=== PATIENT | female | born 1940 | race Caucasian/White ===

== ENCOUNTER 2016-11-04 17:15 | Inpatient (IN) | payer MEDICARE, MEDICAID ==
[~2016-11-04] VITALS: Ht 162.6 cm; Wt 49.6 kg
[~2016-11-04 17:15] MED LIST: ACET325T9 PO; ASPI-482 PO; Bisacodyl PR; CALC200T23 PO; CELE100C PO; ERGO500012 PO; FERR325T72 PO; HYDR-2762 PO; MAGN400O4 PO; MULT1TAB90 PO; OXYC-244 PO; PANT40TA5 PO; PROC5TAB34 PO; SENN-22 PO; ZOLP5TAB PO
[2016-11-04] MEDS ORDERED: HYDROCODONE/APAP 5/325MG TABLET. PO ONE (18:45)
--- NOTE | 2016-11-04 18:47 | RAD ---
PROCEDURE CT chest without contrast. HISTORY Weight loss. Thoracic back pain. TECHNIQUE CT of the chest was performed without intravenous contrast. One or more of the following individualized dose reduction techniques were utilized for this examination: 1. Automated exposure control; 2. Adjustment of the mA and/or kV according to patient size; 3. Use of iterative reconstruction technique. FINDINGS Images of the upper abdomen reveal no acute abnormality. Bone windows reveal osteoporosis and multiple thoracolumbar compression fractures. The will worst is severe at L1, where there is 3 millimeters retropulsion of the superior endplate. This is chronic but may have a superimposed subacute component. There is a chronic moderate compression deformity at T12. These deformities result in mild kyphosis across the thoracolumbar junction. There is a moderate chronic deformity at T9. Another moderate deformity at T6 may be subacute on chronic. Other deformities appear chronic and are minimal. Slight sclerosis at T3 suggests subacute minimal deformity. A right total shoulder arthroplasty is partially visualized. There are atherosclerotic calcifications of the coronary arteries. The heart is not enlarged. There is no pleural or pericardial effusion. Calcified mediastinal lymph nodes indicate old granulomatous disease. There are no clearly pathologically enlarged mediastinal or axillary lymph nodes. Lung windows reveal a chronic postinflammatory opacity with calcified granulomas in the right lower lobe. There is mild atelectasis in the bases. IMPRESSION - Multiple thoracolumbar compression deformities are mostly chronic. A few may have a subacute component. MRI of the thoracic spine could assess chronicity if there is persistent concern. - No acute process. Electronically signed by: Olu Tolliver (Nov 04, 2016 18:46:18)
--- NOTE | 2016-11-04 18:48 | PHYS DOC ---
Past Medical History Past Medical History: Dementia, Other Additional Past Medical Histor: BACK PAIN Past Surgical History: Hysterectomy Alcohol Use: None Drug Use: None Adult General Chief Complaint Chief Complaint: BACK PAIN - NO INJURY HPI HPI Patient is a 76 year old female who presents with upper back pain. Patient reports she has aching across her upper back between her shoulder blades. She says this is been painful the past 2 or 3 weeks, but is worse the past 3 days. She denies any trauma or other clear inciting event. No chest pain or shortness of breath. Patient has tried Tylenol and ibuprofen at home with insufficient relief. In addition, she says she has lost about 20 pounds over the past 6 months. No other acute complaints. Review of Systems Review of Systems Constitutional: Denies fever or chills Eyes: Denies change in visual acuity or eye pain HENT: Denies nasal congestion or sore throat Respiratory: Denies cough or shortness of breath Cardiovascular: Denies chest pain GI: Denies abdominal pain, nausea, vomiting, bloody stools or diarrhea : Denies dysuria or hematuria Musculoskeletal: Thoracic back pain Integument: Denies rash or skin lesions Neurologic: Denies headache, focal weakness or sensory changes Current Medications Current Medications Current Medications Medications (Trade) Dose Ordered Sig/Vonda Start Time Stop Time Status Last Admin Dose Admin Acetaminophen (Tylenol) 650 mg PRN Q4HRS PRN 11/04/16 19:45 11/05/16 19:44 Acetaminophen/ Hydrocodone Bitart (Lortab 5/325) 1 tab 1X ONCE 11/04/16 18:45 11/04/16 18:46 DC 11/04/16 18:40 1 TAB Morphine Sulfate 4 mg PRN Q2HR PRN 11/04/16 20:30 11/05/16 20:29 Ondansetron HCl (Zofran) 4 mg PRN Q8HRS PRN 11/04/16 19:45 11/05/16 19:44 Allergies Allergies Allergies Coded Allergies Type Severity Reaction Last Updated Verified No Known Drug Allergies 02/21/16 No Physical Exam Physical Exam Constitutional: Well developed, no acute distress, non-toxic appearance HENT: Normocephalic, atraumatic, bilateral external ears normal Eyes: EOMI, conjunctiva normal, no discharge Neck: Normal range of motion, no stridor Cardiovascular: Heart rate normal, regular rhythm, no murmur Lungs & Thorax: Bilateral breath sounds clear to auscultation Abdomen: Bowel sounds normal, soft, non-distended, no TTP Skin: Warm, dry, no erythema, no rash Back: Back without visible deformity or skin lesion, does have kyphosis; palpation (midline and laterally) does not cause increased pain; no stepoff noted Extremities: No obvious deformity, no edema; radial pulse 2+ in BUE Neurologic: Alert and oriented X 2; strength and sensation in BUE intact and symmetrical Current Patient Data Vital Signs Vital Signs Date Time Temp Pulse Resp B/P Pulse Ox O2 Delivery O2 Flow Rate FiO2 11/04/16 17:30 97.8 75 21 174/77 97 Room Air 97.8 203/91 EKG EKG [] Radiology/Procedures Radiology/Procedures CT chest: IMPRESSION - Multiple thoracolumbar compression deformities are mostly chronic. A few may have a subacute component. MRI of the thoracic spine could assess chronicity if there is persistent concern. - No acute process. Course & Med Decision Making Course & Med Decision Making Pertinent Labs and Imaging studies reviewed. (See chart for details) Patient is 76-year-old female who presents with upper back pain. Will obtain CT chest to evaluate given pain and complaint of weight loss over past 6 months. Oral pain medication for pain relief. Imaging results as above. I discussed with Kari (ENVIRONMENTAL PROGRAM MANAGER with Dr. Hernandez); if able to control pain, then would be able to send home with outpatient follow-up. I discussed with patient and family, patient still having significant pain and family would prefer she is admitted to the hospital for pain control and further evaluation. Discussed with Dr. Polanco, will admit under his care for further evaluation and treatment. Dragon Disclaimer Dragon Disclaimer This electronic medical record was generated, in whole or in part, using a voice recognition dictation system. Departure Departure Impression: Primary Impression: Compression fracture of thoracic vertebra Additional Impression: Compression fracture of lumbar vertebra Disposition: 09 ADMITTED INPATIENT Admitting Physician: Porsche Polanco Condition: STABLE Referrals: TRISTIN FERNANDEZ DO (PCP) Problem Qualifiers SHENA CUBA MD Nov 04, 2016 18:47
[2016-11-04] MEDS ORDERED: ONDANSETRON PF 4 MG/2 ML VIAL. IV PRN (19:45)
[2016-11-04] MEDS ORDERED: ACETAMINOPHEN 325 MG TABLET. PO PRN (19:45)
[2016-11-04 19:59] LABS: BASO # 0.1 x10^3/uL (0.0-0.2); BASO % 1 % (0-3); EOS % 0 % (0-3); HEMATOCRIT 37.8 % (36.0-47.0); HEMOGLOBIN 12.4 g/dL (12.0-15.5); LYMPH # 1.5 x10^3/uL (1.0-4.8); LYMPH % 21 % (24-48); MEAN CORPUSCULAR HEMOGLOBIN 30 pg (25-35); MEAN CORPUSCULAR HGB CONC 33 g/dL (31-37); MEAN CORPUSCULAR VOLUME 93 fL (79-100); MONO % 7 % (0-9); NEUT % 72 % (31-73); PLATELET COUNT 196 x10^3/uL (140-400); RED BLOOD COUNT 4.08 x10^6/uL (3.50-5.40); RED CELL DISTRIBUTION WIDTH 14.4 % (11.5-14.5); WHITE BLOOD COUNT 7.4 x10^3/uL (4.0-11.0)
[2016-11-04] MEDS ORDERED: MORPHINE SULFATE 4 MG/ML DISP.SYRIN. IV ONE (20:00)
[2016-11-04 20:08] LABS: PROTHROMBIN TIME PATIENT 12.5 SEC (11.7-14.0)
[2016-11-04 20:10] LABS: CALCIUM 9.6 mg/dL (8.5-10.1); CREATININE 0.8 mg/dL (0.6-1.0); GFR 69.4; POTASSIUM 4.1 mmol/L (3.5-5.1)
[2016-11-04 20:45] VITALS: BP 158/89
--- NOTE | 2016-11-04 20:46 | ACF ---
Admit Criteria Forms Admit Criteria Forms Admit Criteria Forms MUSCULOSKELETAL DISEASE GRG Clinical Indications for Admission to Inpatient Care (Place 'X' for any and all applicable criteria): Hospital admission is needed for appropriate care of the patient because of ANY ONE of the following: [X]I. Fracture, dislocation, or other musculoskeletal injury requiring inpatient care(medical) as indicated by ANY ONE of the following(4)(5)(6)(7) [ ]a) Vertebral fracture requiring observation for instability or neurologic compromise (8) [ ]b) Compartment syndrome (proven or cannot be ruled out during observation level of care) (9) [ ]c) Limb-threatening injury [ ]d) Major injury requiring inpatient stabilization such as traction initiation or external fixation before internal fixation or closure of complex or open fracture [X]e) Major injury requiring inpatient treatment after emergency or observation level care (as appropriate) [ ]f) Severe pain requiring acute inpatient management [ ]II. Newly diagnosed or suspected bone, joint, or orthopedic device infection (e.g., osteomyelitis, septic arthritis) needing ANY ONE of the following(1)(2)(3) [ ]a) IV antibiotics that cannot be initiated in other than inpatient setting (e.g., patient too unstable or home infusion not available) [ ]b) Device removal or replacement [ ]c) Bone or soft tissue debridement [ ]d) Joint drainage (drain placement or repetitive aspirations) [ ]III. Severe rheumatologic disease (e.g., systemic lupus erythematosus, rheumatoid arthritis) with complications or comorbidities (Also use Optimal Recovery Care Criteria or General Recovery Criteria as appropriate on the basis of predominant condition), including ANY ONE of the following(10 )(11)(12)(13) [ ]a) Severe infection (e.g., SOLUTIONS OPERATOR infection, sepsis) (14) [ ]b) Respiratory complications, including ANY ONE of the following: [ ]i) Pleural effusion with respiratory compromise [ ]ii) Pulmonary hypertension with congestive failure [ ]iii) Respiratory failure [ ]iv) Pulmonary hemorrhage (15) [ ]c) Hematologic disease, including ANY ONE of the following: [ ]i) Coagulopathy with bleeding [ ]ii) Thrombosis with hypercoagulable state [ ]iii) Thrombotic thrombocytopenic purpura [ ]d) Cerebritis with seizures, psychosis, or other severe abnormalities [ ]e) Vertebral destruction with monitoring needed for cervical myelopathy& possible respiratory compromise [ ]f) Exacerbation that requires inpatient treatment (e.g., intravenous immunosuppression) (16) [ ]g) Acute renal failure [ ]IV. Severe vasculitis with complications or comorbidities (Also use Optimal Recovery Care Criteria or General Recovery Criteria as appropriate on the basis of predominant condition), including ANY ONE of the following(11)(12)(17)(18)(19)(20) [ ]a) SOLUTIONS OPERATOR vasculitis with seizures, psychosis, or other severe abnormalities (22) [ ]b) Renal failure (16) [ ]c) Pulmonary hemorrhage (15) [ ]d) Cerebral infarction [ ]e) Gastrointestinal ischemia [ ]f) Gangrene or threatened amputation [ ]g) Exacerbation that requires inpatient treatment (e.g., intravenous immunosuppression) (19)(21) [ ]V. Severe myopathy as indicated by ANY ONE of the following (28)(29) [ ]a) New onset of airway compromise or inability to swallow [ ]b) Respiratory deterioration with observation needed for impending respiratory failure [ ]c) Exacerbation that requires inpatient treatment (e.g., intravenous immunosuppression) [ ]. Severe gout (crystal arthropathy) as indicated by ANY ONE of the following (23)(24) [ ]a) Severe pain requiring acute inpatient management [ ]b) Exacerbation that requires inpatient treatment (e.g., intravenous treatment) [ ]VII.Rhabdomyolysis and ANY ONE of the following (25)(26)(27) [ ]a) Acute renal failure [ ]b) Need for intravenous hydration after emergency or observation level care (as appropriate) [ ]c) Inability to maintain oral hydration [ ]d) Change in mental status [ ]e) Electrolyte abnormality that remains after emergency or observation level care (as appropriate) [ ]VIII Post amputation complication, as indicated by ANY ONE of the following [ ]a) Infection [ ]b) Dehiscence [ ]c) Myodesis failure [ ]IX. Severe pain requiring acute inpatient management as indicated by ALL of the following (30)(31)(32) [ ]a) Continuous or frequent (e.g., every 2 to 4 hrs) parenteral analgesics required [A] [ ]b) Rapid improvement expected from treatment or acute intervention ( e.g., surgery, anesthesia procedure[B] [ ]X. Musculoskeletal Disease and ALL of the following: [ ]a) Symptom or finding for which emergency and observation care have failed or are not considered appropriate (Use General Criteria: Observation Care as appropriate) [ ]b) Presence of ANY ONE of the following [ ]i) A General Admission Criteria [ ]ii) A Pediatric General Admission Criteria The original [facility] content created by [facility] has been revised. The portions of the content which have been revised are identified through the use of italic text or in bold, and [facility] has neither reviewed nor approved the modified material. All other unmodified content is copyright [facility]. Please see references footnoted in the original [facility] edition 2016 CORA ROBLES Nov 04, 2016 20:46
[2016-11-04] MEDS: MORPHINE SULFATE 4 MG/ML DISP.SYRIN. IV PRN (22:09)
[2016-11-04] MEDS ORDERED: ASPI81TA2 PO (22:15)
--- NOTE | 2016-11-04 22:28 | PDOC1 ---
History and Physical Date of Admission Date of Admission DATE: 11/04/16 TIME: 22:28 Identification/Chief Complaint Chief Complaint back pain Source Source: Chart review, Patient History of Present Illness History of Present Illness Ms. Riggs is a 76 year old female admitted with acute upper back pain. Pain has worsened markedly 3 days ago, but has been ogoing on for weeks She has been less mobile, and has not used the stairs for awhile. Her Granddaughter lives with her, and insists that she is too large of a risk of falling down the stairs Heike reports that she hasn't driven in some time, that her doctor has stopped her from driving, I asked why Dr. Hector did this, she replied "it wasn't Dr. Hector, it was some male , I think" She has pain at rest, does not remember taking percocet, which is on her med list she does eliciti 20 lbs unintentional weight loss past 6 mos. Past Medical History Cardiovascular: HTN, Hyperlipidemia Pulmonary: No pertinent hx CENTRAL NERVOUS SYSTEM: Other GI: No pertinent hx Heme/Onc: No pertinent hx Hepatobiliary: No pertinent hx Psych: No pertinent hx Musculoskeletal: low back pain Rheumatologic: No pertinent hx Infectious disease: No pertinent hx Renal/: No pertinent hx Endocrine: No pertinent hx Past Surgical History Past Surgical History: Hysterectomy Family History Family History: No Significant Social History Smoke: No ALCOHOL: none Drugs: None Current Problem List Problem List Problems Medical Problems: (1) Compression fracture of lumbar vertebra Status: Acute (2) Compression fracture of thoracic vertebra Status: Acute Problems: Current Medications Current Medications Current Medications Acetaminophen/ Hydrocodone Bitart (Lortab 5/325) 1 tab 1X ONCE PO Last administered on 11/04/16 18:40; Start 11/04/16 at 18:45; Stop 11/04/16 at 18:46 ; Status DC Morphine Sulfate 4 mg 1X ONCE IV Last administered on 11/04/16 19:57; Start 11/04/16 at 20:00; Stop 11/04/16 at 20:01; Status DC Ondansetron HCl (Zofran) 4 mg PRN Q8HRS PRN IV NAUSEA/VOMITING; Start 11/04/16 at 19:45; Stop 11/05/16 at 19:44 Morphine Sulfate 4 mg PRN Q2HR PRN IV PAIN Last administered on 11/04/16t 22:09 ; Start 11/04/16 at 20:30; Stop 11/05/16 at 20:29 Acetaminophen 650 mg 650 mg PRN Q4HRS PRN PO FEVER; Start 11/04/16 at 19:45; Stop 11/05/16 at 19:44 Sodium Chloride (Iv Sodium Chloride 0.9% 1000ml Bag) 1,000 ml @ 100 mls/hr 1X ONCE IV ; Start 11/04/16 at 23:30; Stop 11/05/16 at 09:29 Aspirin (Children'S Aspirin) 81 mg DAILY PRN PO PAIN; Start 11/04/16 at 22:30 Calcium Carbonate/ Glycine (Tums) 500 mg PRN QID PRN PO INDIGESTION; Start 08/11 at 22:30 Ferrous Sulfate (Feosol) 325 mg BIDAFTMEAL PO ; Start 11/05/16 at 09:00 Acetaminophen/ Hydrocodone Bitart (Lortab 7.5/325) 1 tab PRN Q3HRS PRN PO PAIN ; Start 11/04/16 at 22:30 Magnesium Hydroxide (Milk Of Magnesia) 2,400 mg 1X PRN PRN PO CONSTIPATION; Start 11/04/16 at 22:30 Pantoprazole Sodium (Protonix) 40 mg DAILYAC PO ; Start 11/05/16 at 07:30; Status UNV Prochlorperazine Maleate (Compazine) 10 mg PRN Q4HRS PRN PO NAUSEA/VOMITING; Start 11/04/16 at 22:30; Status UNV Senna/Docusate Sodium (Senna Plus) 1 tab DAILY PO ; Start 11/05/16 at 09:00; Status UNV Zolpidem Tartrate (Ambien) 5 mg PRN QHS PRN PO INSOMNIA, MAY REPEAT IN 1HR; Start 11/04/16 at 22:30; Status UNV Active Scripts Active Ambien (Zolpidem Tartrate) 5 Mg Tablet 5 Mg PO PRN QHS PRN 14 Days Senna-Time S Tablet (Sennosides/Docusate Sodium) 1 Each Tablet 1 Tab PO DAILY 30 Days Compazine (Prochlorperazine Maleate) 5 Mg Tablet 10 Mg PO PRN Q4HRS PRN 14 Days Pantoprazole Sodium 40 Mg Tablet.dr 40 Mg PO DAILYAC 30 Days Thera-M Tablet (Multivits,Ca,Minerals/Iron/Fa) 1 Each Tablet 1 Tab PO DAILY 30 Days Milk Of Magnesia (Magnesium Hydroxide) 400 Mg/5 Ml Oral.susp 2,400 Mg PO 1X PRN PRN 14 Days Hydrocodone-Apap 7.5-325 (Hydrocodone Bit/Acetaminophen) 1 Each Tablet 1 Tab PO PRN Q3HRS PRN 14 Days Feosol (Ferrous Sulfate) 325 Mg Tablet 325 Mg PO BIDAFTMEAL 30 Days Calcium Carbonate 200 Mg Tab.chew 500 Mg PO PRN QID PRN 30 Days [Bisacodyl] 10 MG Supp.rect 10 Mg WV 1X PRN PRN 30 Days Reported Aspirin 81 Mg Tab.chew 81 Mg PO PRN Tylenol (Acetaminophen) 325 Mg Tablet 650 Mg PO PRN PRN Vitamin D2 (Ergocalciferol (Vitamin D2)) 50,000 Unit Capsule 50,000 Unit PO WEEKLY Percocet 7.5-325 Mg Tablet (Oxycodone/Acetaminophen) 1 Each Tablet 1 Tab PO PRN Q6HRS PRN Celebrex (Celecoxib) 100 Mg Capsule 100 Mg PO BID 30 Days Hydrocodone-Apap 7.5-325 (Hydrocodone Bit/Acetaminophen) 1 Each Tablet 1 Each PO PRN AFTMEAL Aspir 81 (Aspirin) 81 Mg Tablet.dr 81 Mg PO DAILY08 Allergies Allergies: Coded Allergies: No Known Drug Allergies (Unverified , 02/21/16) ROS General: No: Appetite, Chills, Fatigue, Malaise, Night Sweats, Other PSYCHOLOGICAL ROS: No: Anxiety, Behavioral Disorder, Concentration difficultie , Decreased libido, Depression, Disorientation, Hallucinations, Hostility, Irritablity, Memory difficulties, Mood Swings, Obsessive thoughts, Other, Physical abuse, Sexual abuse, Sleep disturbances, Suicidal ideation Eyes: No Blurry vision, No Decreased vision, No Double vision, No Dry eyes, No Excessive tearing, No Eye Pain, No Itchy Eyes, No Loss of vision, No Other, No Photophobia, No Scotomata, No Uses contacts, No Uses glasses HEENT: No: Epistaxis, Heacaches, Hearing change, Nasal congestion, Nasal discharge, Oral lesions, Other, Sinus pain, Sneezing, Snoring, Sore Throat, Tinnitus, Vertigo, Visual Changes, Vocal changes ALLERGY AND IMMUNOLOGY: No: Hives, Insect Bite Sensitivity, Itchy/Watery Eyes, Nasal Congestion, Other, Post Nasal Drip, Seasonal Allergies ENDOCRINE: YES: Unexpected Weight Changes, No: Breast Changes, Galactorrhea, Hair Pattern Changes, Hot Flashes, Malaise/ lethargy, Mood Swings, Other, Palpitations, Polydipsia/polyuria, Skin Changes, Temperature Intolerance Respiratory: No: Cough, Hemoptysis, Orthopnea, Other, Pleuritic Pain, SOB with excertion, Shortness of breath, Sputum Changes, Stridor, Tachypnea, Wheezing Cardiovascular: No Chest Pain, No Edema, No Lt Headedness, No Orthopnea, No Other, No Palpitations, No Paroxysmal Noc. Dyspnea Gastrointestinal: No Abdominal Pain, No Constipation, No Diarrhea, No Hematochezia, No Melena, No Nausea, No Other, No Vomiting Genitourinary: No , No , No , No , No , No , No , No Discharge, No Dysuria, No Flank Pain, No Frequency, No Hematuria, No Incontinence, No Other, No Pain, No Retention, No Urgency Musculoskeletal: Yes Joint Pain, Yes Joint Stiffness, Yes Muscular Weakness, Yes Pain In:, No Gait Disturbance, No Joint Swelling, No Muscle Pain, No Other Neurological: Yes Weakness, No Behavorial Changes, No Bowel/Bladder ControlChng, No Confusion, No Dizziness, No Gait Disturbance, No Headaches, No Impaired Coord/balance, No Memory Loss, No Numbness/Tingling, No Other, No Seizures, No Speech Problems, No Tremors, No Visual Changes Skin: No Acne, No Dry Skin, No Eczema, No Hair Changes, No Lumps, No Mole Changes, No Mottling, No Nail Changes, No Other, No Pruritus, No Rash, No Skin Lesion Changes Physical Exam General: Alert, Cooperative, No acute distress, Other (oriented 3/4) HEENT: Atraumatic, EOMI Lungs: Clear to auscultation, Normal air movement Heart: RRR, no murmurs Abdomen: Normal bowel sounds, Soft Rectal Exam: not examined Extremities: No clubbing, No cyanosis, No edema Skin: No rashes, No breakdown, No significant lesion Neuro: Normal speech, Sensation intact Psych/Mental Status: Mood NL Vitals Vitals Vital Signs Date Time Temp Pulse Resp B/P Pulse Ox O2 Delivery O2 Flow Rate FiO2 11/04/16 22:09 99 11/04/16 20:45 98.3 71 18 158/89 Room Air 98.3 Labs Labs Laboratory Tests Test 11/04/16 19:50 White Blood Count 7.4x10^3/uL (4.0-11.0) Red Blood Count 4.08x10^6/uL (3.50-5.40) Hemoglobin 12.4g/dL (12.0-15.5) Hematocrit 37.8% (36.0-47.0) Mean Corpuscular Volume 93fL (79-100) Mean Corpuscular Hemoglobin 30pg (25-35) Mean Corpuscular Hemoglobin Concent 33g/dL (31-37) Red Cell Distribution Width 14.4% (11.5-14.5) Platelet Count 196x10^3/uL (140-400) Neutrophils (%) (Auto) 72% (31-73) Lymphocytes (%) (Auto) 21% (24-48) Monocytes (%) (Auto) 7% (0-9) Eosinophils (%) (Auto) 0% (0-3) Basophils (%) (Auto) 1% (0-3) Neutrophils # (Auto) 5.3x10^3uL (1.8-7.7) Lymphocytes # (Auto) 1.5x10^3/uL (1.0-4.8) Monocytes # (Auto) 0.5x10^3/uL (0.0-1.1) Eosinophils # (Auto) 0.0x10^3/uL (0.0-0.7) Basophils # (Auto) 0.1x10^3/uL (0.0-0.2) Prothrombin Time 12.5SEC (11.7-14.0) Prothromb Time International Ratio 1.0 (0.8-1.1) Sodium Level 143mmol/L (136-145) Potassium Level 4.1mmol/L (3.5-5.1) Chloride Level 105mmol/L (98-107) Carbon Dioxide Level 29mmol/L (21-32) Anion Gap 9 (6-14) Blood Urea Nitrogen 18mg/dL (7-20) Creatinine 0.8mg/dL (0.6-1.0) Estimated GFR (Cockcroft-Gault) 69.4 Glucose Level 100mg/dL (70-99) Calcium Level 9.6mg/dL (8.5-10.1) Laboratory Tests Test 11/04/16 19:50 White Blood Count 7.4x10^3/uL (4.0-11.0) Red Blood Count 4.08x10^6/uL (3.50-5.40) Hemoglobin 12.4g/dL (12.0-15.5) Hematocrit 37.8% (36.0-47.0) Mean Corpuscular Volume 93fL (79-100) Mean Corpuscular Hemoglobin 30pg (25-35) Mean Corpuscular Hemoglobin Concent 33g/dL (31-37) Red Cell Distribution Width 14.4% (11.5-14.5) Platelet Count 196x10^3/uL (140-400) Neutrophils (%) (Auto) 72% (31-73) Lymphocytes (%) (Auto) 21% (24-48) Monocytes (%) (Auto) 7% (0-9) Eosinophils (%) (Auto) 0% (0-3) Basophils (%) (Auto) 1% (0-3) Neutrophils # (Auto) 5.3x10^3uL (1.8-7.7) Lymphocytes # (Auto) 1.5x10^3/uL (1.0-4.8) Monocytes # (Auto) 0.5x10^3/uL (0.0-1.1) Eosinophils # (Auto) 0.0x10^3/uL (0.0-0.7) Basophils # (Auto) 0.1x10^3/uL (0.0-0.2) Prothrombin Time 12.5SEC (11.7-14.0) Prothromb Time International Ratio 1.0 (0.8-1.1) Sodium Level 143mmol/L (136-145) Potassium Level 4.1mmol/L (3.5-5.1) Chloride Level 105mmol/L (98-107) Carbon Dioxide Level 29mmol/L (21-32) Anion Gap 9 (6-14) Blood Urea Nitrogen 18mg/dL (7-20) Creatinine 0.8mg/dL (0.6-1.0) Estimated GFR (Cockcroft-Gault) 69.4 Glucose Level 100mg/dL (70-99) Calcium Level 9.6mg/dL (8.5-10.1) VTE Prophylaxis Ordered VTE Prophylaxis Devices: Yes VTE Pharmacological Prophylaxi: No Assessment/Plan Assessment/Plan back pain, compression fractures seen on CT, Neurosurg consulted, will plan MRI, maybe brace or Kyphoplasty if early phase. osteoporotic fracture likely Vit D is on her med list, she does not recall taking, will check a level, weight loss, maybe from cognitive decline, check hepatic panel now other labs look good PT and OT to wait for NS clearance, maybe a brace will help KEATON SANCHEZ MD Nov 04, 2016 22:28
[2016-11-04] MEDS ORDERED: ASPIRIN 81 MG TAB.CHEW PO PRN (22:30)
[2016-11-04] MEDS ORDERED: ZOLPIDEM 5 MG TABLET. PO PRN (22:30)
[2016-11-04] MEDS ORDERED: CALCIUM CARBONATE 500 MG TAB.CHEW PO PRN (22:30)
[2016-11-04] MEDS ORDERED: MAGNESIUM HYDROXIDE 2,400 MG/30 ML ORAL.SUSP. PO PRN (22:30)
[2016-11-04] MEDS ORDERED: PROCHLORPERAZINE 5 MG TABLET. PO PRN (22:30)
[2016-11-04 23:06] LABS: ALBUMIN 3.8 g/dL (3.4-5.0); DIRECT BILIRUBIN 0.1 mg/dL (0.0-0.2); TOTAL BILIRUBIN 0.5 mg/dL (0.2-1.0); TOTAL PROTEIN 6.9 g/dL (6.4-8.2)
[2016-11-04 23:15] VITALS: BP 153/75
[2016-11-04] MEDS ORDERED: IV NORMAL SALINE 1000ML BAG 1,000 ML IV ONE (23:30)
[2016-11-04] MEDS ORDERED: PNEUMOCOCCAL VAX SCREEN BY RX. MC ONE (23:30)
[2016-11-05] MEDS: MORPHINE SULFATE 4 MG/ML DISP.SYRIN. IV PRN (02:54)
[2016-11-05 03:39] VITALS: BP 158/69
[2016-11-05 07:36] VITALS: BP 159/71
[2016-11-05] MEDS ORDERED: INFLUENZA VAX SCREEN BY RX. MC ONE (09:00)
[2016-11-05] MEDS ORDERED: FLU VACC QUAD 2016-17 (36MOS+)/PF 0.5 ML SYRINGE. VAX IM ONE (09:00)
[2016-11-05] MEDS ORDERED: PNEUMOC CONJ VACC 23-VALENT 0.5 ML VIAL. VAX IM ONE (09:00)
[2016-11-05] MEDS: FERROUS SULFATE 325 MG TABLET PO SCH ×2 (09:27→18:41)
[2016-11-05] MEDS: SENNOSIDES/DOCUSATE 8.6/50MG TABLET. PO SCH (09:27)
[2016-11-05] MEDS: PANTOPRAZOLE 40 MG TABLET. PO SCH (09:27)
[2016-11-05 11:16] VITALS: BP 136/62
--- NOTE | 2016-11-05 14:16 | PDOC ---
PROGRESS NOTES Chief Complaint Chief Complaint CC:back pain, Back pain compression fractures possible osteoporotic Plan NS confutation PMNR consult. PT/OT pain control no bladder or bowel incontinence History of Present Illness History of Present Illness no acute events. pain better controlled. Vitals Vitals Vital Signs Date Time Temp Pulse Resp B/P Pulse Ox O2 Delivery O2 Flow Rate FiO2 11/05/16 11:16 97.3 72 18 136/62 98 Room Air 97.3 Physical Exam General: Alert, Oriented X3, Cooperative, No acute distress, Other (oriented 3/ 4) Heart: Normal S1, Normal S2 Abdomen: Normal bowel sounds, Soft Extremities: No clubbing, No cyanosis, No edema Skin: No rashes, No breakdown, No significant lesion Labs LABS Laboratory Tests Test 11/04/16 19:50 White Blood Count 7.4x10^3/uL (4.0-11.0) Red Blood Count 4.08x10^6/uL (3.50-5.40) Hemoglobin 12.4g/dL (12.0-15.5) Hematocrit 37.8% (36.0-47.0) Mean Corpuscular Volume 93fL (79-100) Mean Corpuscular Hemoglobin 30pg (25-35) Mean Corpuscular Hemoglobin Concent 33g/dL (31-37) Red Cell Distribution Width 14.4% (11.5-14.5) Platelet Count 196x10^3/uL (140-400) Neutrophils (%) (Auto) 72% (31-73) Lymphocytes (%) (Auto) 21% (24-48) Monocytes (%) (Auto) 7% (0-9) Eosinophils (%) (Auto) 0% (0-3) Basophils (%) (Auto) 1% (0-3) Neutrophils # (Auto) 5.3x10^3uL (1.8-7.7) Lymphocytes # (Auto) 1.5x10^3/uL (1.0-4.8) Monocytes # (Auto) 0.5x10^3/uL (0.0-1.1) Eosinophils # (Auto) 0.0x10^3/uL (0.0-0.7) Basophils # (Auto) 0.1x10^3/uL (0.0-0.2) Prothrombin Time 12.5SEC (11.7-14.0) Prothromb Time International Ratio 1.0 (0.8-1.1) Sodium Level 143mmol/L (136-145) Potassium Level 4.1mmol/L (3.5-5.1) Chloride Level 105mmol/L (98-107) Carbon Dioxide Level 29mmol/L (21-32) Anion Gap 9 (6-14) Blood Urea Nitrogen 18mg/dL (7-20) Creatinine 0.8mg/dL (0.6-1.0) Estimated GFR (Cockcroft-Gault) 69.4 Glucose Level 100mg/dL (70-99) Calcium Level 9.6mg/dL (8.5-10.1) Total Bilirubin 0.5mg/dL (0.2-1.0) Direct Bilirubin 0.1mg/dL (0.0-0.2) Aspartate Amino Transf (AST/SGOT) 33U/L (15-37) Alanine Aminotransferase (ALT/SGPT) 30U/L (14-59) Alkaline Phosphatase 113U/L (46-116) Total Protein 6.9g/dL (6.4-8.2) Albumin 3.8g/dL (3.4-5.0) Assessment and Plan Assessmemt and Plan Problems Medical Problems: (1) Compression fracture of lumbar vertebra Status: Acute (2) Compression fracture of thoracic vertebra Status: Acute Problems: Comment Review of Relevant I have reviewed the following items bubba (where applicable) has been applied. Labs Laboratory Tests Test 11/04/16 19:50 White Blood Count 7.4x10^3/uL (4.0-11.0) Red Blood Count 4.08x10^6/uL (3.50-5.40) Hemoglobin 12.4g/dL (12.0-15.5) Hematocrit 37.8% (36.0-47.0) Mean Corpuscular Volume 93fL (79-100) Mean Corpuscular Hemoglobin 30pg (25-35) Mean Corpuscular Hemoglobin Concent 33g/dL (31-37) Red Cell Distribution Width 14.4% (11.5-14.5) Platelet Count 196x10^3/uL (140-400) Neutrophils (%) (Auto) 72% (31-73) Lymphocytes (%) (Auto) 21% (24-48) Monocytes (%) (Auto) 7% (0-9) Eosinophils (%) (Auto) 0% (0-3) Basophils (%) (Auto) 1% (0-3) Neutrophils # (Auto) 5.3x10^3uL (1.8-7.7) Lymphocytes # (Auto) 1.5x10^3/uL (1.0-4.8) Monocytes # (Auto) 0.5x10^3/uL (0.0-1.1) Eosinophils # (Auto) 0.0x10^3/uL (0.0-0.7) Basophils # (Auto) 0.1x10^3/uL (0.0-0.2) Prothrombin Time 12.5SEC (11.7-14.0) Prothromb Time International Ratio 1.0 (0.8-1.1) Sodium Level 143mmol/L (136-145) Potassium Level 4.1mmol/L (3.5-5.1) Chloride Level 105mmol/L (98-107) Carbon Dioxide Level 29mmol/L (21-32) Anion Gap 9 (6-14) Blood Urea Nitrogen 18mg/dL (7-20) Creatinine 0.8mg/dL (0.6-1.0) Estimated GFR (Cockcroft-Gault) 69.4 Glucose Level 100mg/dL (70-99) Calcium Level 9.6mg/dL (8.5-10.1) Total Bilirubin 0.5mg/dL (0.2-1.0) Direct Bilirubin 0.1mg/dL (0.0-0.2) Aspartate Amino Transf (AST/SGOT) 33U/L (15-37) Alanine Aminotransferase (ALT/SGPT) 30U/L (14-59) Alkaline Phosphatase 113U/L (46-116) Total Protein 6.9g/dL (6.4-8.2) Albumin 3.8g/dL (3.4-5.0) Laboratory Tests Test 11/04/16 19:50 White Blood Count 7.4x10^3/uL (4.0-11.0) Red Blood Count 4.08x10^6/uL (3.50-5.40) Hemoglobin 12.4g/dL (12.0-15.5) Hematocrit 37.8% (36.0-47.0) Mean Corpuscular Volume 93fL (79-100) Mean Corpuscular Hemoglobin 30pg (25-35) Mean Corpuscular Hemoglobin Concent 33g/dL (31-37) Red Cell Distribution Width 14.4% (11.5-14.5) Platelet Count 196x10^3/uL (140-400) Neutrophils (%) (Auto) 72% (31-73) Lymphocytes (%) (Auto) 21% (24-48) Monocytes (%) (Auto) 7% (0-9) Eosinophils (%) (Auto) 0% (0-3) Basophils (%) (Auto) 1% (0-3) Neutrophils # (Auto) 5.3x10^3uL (1.8-7.7) Lymphocytes # (Auto) 1.5x10^3/uL (1.0-4.8) Monocytes # (Auto) 0.5x10^3/uL (0.0-1.1) Eosinophils # (Auto) 0.0x10^3/uL (0.0-0.7) Basophils # (Auto) 0.1x10^3/uL (0.0-0.2) Prothrombin Time 12.5SEC (11.7-14.0) Prothromb Time International Ratio 1.0 (0.8-1.1) Sodium Level 143mmol/L (136-145) Potassium Level 4.1mmol/L (3.5-5.1) Chloride Level 105mmol/L (98-107) Carbon Dioxide Level 29mmol/L (21-32) Anion Gap 9 (6-14) Blood Urea Nitrogen 18mg/dL (7-20) Creatinine 0.8mg/dL (0.6-1.0) Estimated GFR (Cockcroft-Gault) 69.4 Glucose Level 100mg/dL (70-99) Calcium Level 9.6mg/dL (8.5-10.1) Total Bilirubin 0.5mg/dL (0.2-1.0) Direct Bilirubin 0.1mg/dL (0.0-0.2) Aspartate Amino Transf (AST/SGOT) 33U/L (15-37) Alanine Aminotransferase (ALT/SGPT) 30U/L (14-59) Alkaline Phosphatase 113U/L (46-116) Total Protein 6.9g/dL (6.4-8.2) Albumin 3.8g/dL (3.4-5.0) Medications Current Medications Acetaminophen/ Hydrocodone Bitart (Lortab 5/325) 1 tab 1X ONCE PO Last administered on 11/04/16 18:40; Start 11/04/16 at 18:45; Stop 11/04/16 at 18:46 ; Status DC Morphine Sulfate 4 mg 1X ONCE IV Last administered on 11/04/16 19:57; Start 11/04/16 at 20:00; Stop 11/04/16 at 20:01; Status DC Ondansetron HCl (Zofran) 4 mg PRN Q8HRS PRN IV NAUSEA/VOMITING; Start 11/04/16 at 19:45; Stop 11/05/16 at 19:44 Morphine Sulfate 4 mg PRN Q2HR PRN IV PAIN Last administered on 11/05/16 02:54 ; Start 11/04/16 at 20:30; Stop 11/05/16 at 20:29 Acetaminophen 650 mg 650 mg PRN Q4HRS PRN PO FEVER; Start 11/04/16 at 19:45; Stop 11/05/16 at 19:44 Sodium Chloride (Iv Sodium Chloride 0.9% 1000ml Bag) 1,000 ml @ 100 mls/hr 1X ONCE IV Last administered on 11/04/16 23:37; Start 11/04/16 at 23:30; Stop at 09:29; Status DC Aspirin (Children'S Aspirin) 81 mg DAILY PRN PO PAIN; Start 11/04/16 at 22:30 Calcium Carbonate/ Glycine (Tums) 500 mg PRN QID PRN PO INDIGESTION; Start 08/11 at 22:30 Ferrous Sulfate (Feosol) 325 mg BIDAFTMEAL PO Last administered on 11/05/16 09 :27; Start 11/05/16 at 09:00 Acetaminophen/ Hydrocodone Bitart (Lortab 7.5/325) 1 tab PRN Q3HRS PRN PO PAIN ; Start 11/04/16 at 22:30 Magnesium Hydroxide (Milk Of Magnesia) 2,400 mg 1X PRN PRN PO CONSTIPATION; Start 11/04/16 at 22:30 Pantoprazole Sodium (Protonix) 40 mg DAILYAC PO Last administered on 11/05/16 09:27; Start 11/05/16 at 07:30 Prochlorperazine Maleate (Compazine) 10 mg PRN Q4HRS PRN PO NAUSEA/VOMITING; Start 11/04/16 at 22:30 Senna/Docusate Sodium (Senna Plus) 1 tab DAILY PO Last administered on 09:27; Start 11/05/16 at 09:00 Zolpidem Tartrate (Ambien) 5 mg PRN QHS PRN PO INSOMNIA, MAY REPEAT IN 1HR; Start 11/04/16 at 22:30 Info (Do NOT chart on this placeholder) 0.5 each 1X ONCE MC ; Start 11/05/16 at 09:00; Stop 11/05/16 at 09:01; Status UNV Pneumococcal Polyvalent Vaccine (Do NOT chart on this placeholder) 0.5 each 1X ONCE MC ; Start 11/04/16 at 23:30; Stop 11/04/16 at 23:31; Status UNV Influenza Virus Vaccine Quadrival (Fluarix Quad [id number] Syringe) 0.5 ml ONCE ONCE VAX IM Last administered on 11/05/16 09:30; Start 11/05/16 at 09:00; Stop 11/05/16 at 09:01; Status DC Pneumococcal Polyvalent Vaccine (Pneumovax 23) 0.5 ml ONCE ONCE VAX IM Last administered on 11/05/16 09:32; Start 11/05/16 at 09:00; Stop 11/05/16 at 09:01 ; Status DC Active Scripts Active Ambien (Zolpidem Tartrate) 5 Mg Tablet 5 Mg PO PRN QHS PRN 14 Days Senna-Time S Tablet (Sennosides/Docusate Sodium) 1 Each Tablet 1 Tab PO DAILY 30 Days Compazine (Prochlorperazine Maleate) 5 Mg Tablet 10 Mg PO PRN Q4HRS PRN 14 Days Pantoprazole Sodium 40 Mg Tablet.dr 40 Mg PO DAILYAC 30 Days Thera-M Tablet (Multivits,Ca,Minerals/Iron/Fa) 1 Each Tablet 1 Tab PO DAILY 30 Days Milk Of Magnesia (Magnesium Hydroxide) 400 Mg/5 Ml Oral.susp 2,400 Mg PO 1X PRN PRN 14 Days Hydrocodone-Apap 7.5-325 (Hydrocodone Bit/Acetaminophen) 1 Each Tablet 1 Tab PO PRN Q3HRS PRN 14 Days Feosol (Ferrous Sulfate) 325 Mg Tablet 325 Mg PO BIDAFTMEAL 30 Days Calcium Carbonate 200 Mg Tab.chew 500 Mg PO PRN QID PRN 30 Days [Bisacodyl] 10 MG Supp.rect 10 Mg IN 1X PRN PRN 30 Days Reported Aspirin 81 Mg Tab.chew 81 Mg PO PRN Tylenol (Acetaminophen) 325 Mg Tablet 650 Mg PO PRN PRN Vitamin D2 (Ergocalciferol (Vitamin D2)) 50,000 Unit Capsule 50,000 Unit PO WEEKLY Percocet 7.5-325 Mg Tablet (Oxycodone/Acetaminophen) 1 Each Tablet 1 Tab PO PRN Q6HRS PRN Celebrex (Celecoxib) 100 Mg Capsule 100 Mg PO BID 30 Days Hydrocodone-Apap 7.5-325 (Hydrocodone Bit/Acetaminophen) 1 Each Tablet 1 Each PO PRN AFTMEAL Aspir 81 (Aspirin) 81 Mg Tablet.dr 81 Mg PO DAILY08 Vitals/I & O Vital Sign - Last 24 Hours 11/04/16 11/04/16 11/04/16 11/04/16 17:30 17:35 18:31 19:31 Temp 97.8 97.8 Pulse 75 80 76 76 Resp 21 B/P 174/77 174/77 180/81 167/78 203/91 Pulse Ox 97 98 98 96 O2 Delivery Room Air Room Air Room Air Room Air 11/04/16 11/04/16 11/04/16 11/04/16 20:01 20:45 22:09 23:05 Temp 98.3 98.3 Pulse 74 71 Resp 18 B/P 158/74 158/89 Pulse Ox 96 99 99 O2 Delivery Room Air Room Air Room Air 11/04/16 11/05/16 11/05/16 11/05/16 23:15 02:54 03:39 07:36 Temp 98.6 98.1 97.8 98.6 98.1 97.8 Pulse 75 89 85 Resp 18 18 18 B/P 153/75 158/69 159/71 Pulse Ox 98 98 94 99 O2 Delivery Room Air Room Air Room Air Room Air 11/05/16 11/05/16 08:00 11:16 Temp 97.3 97.3 Pulse 72 Resp 18 B/P 136/62 Pulse Ox 98 O2 Delivery Room Air Room Air Intake and Output 11/04/16 11/04/16 11/05/16 15:00 23:00 07:00 Intake Total 480 ml Balance 480 ml GROVER SMITH MD Nov 05, 2016 14:16
--- NOTE | 2016-11-05 15:17 | RAD ---
PROCEDURE MRI thoracic spine without contrast. HISTORY L1 compression fracture TECHNIQUE Multiplanar, multi sequential, non contrast MR imaging was performed of the thoracic spine. COMPARISON There is no previous similar exam available. FINDINGS There is mild motion. There is T6 compression fracture with associated marrow edema signified by STIR hyperintense and T1 hypointense signal, no significant osseous retropulsion. There is L1 compression fracture, edema anteriorly of the compressed vertebral body although no significant edema more posteriorly. There is osseous retropulsion of the superior margin with mild indentation upon the ventral thecal sac. There is old superior T12 compression fracture, also anterior T9 compression fracture. There is no significant thoracic spinal stenosis at any level. Thoracic neural foramina are overall adequate. Thoracic cord caliber is within normal limits without significant focal signal abnormality. IMPRESSION 1. There is acute T6 compression fracture without significant osseous retropulsion. There is L1 compression fracture with edema anteriorly although no significant edema posteriorly, possibly due to acute on chronic fracture. There is old compression deformity of T12 and T9. 2. There is no significant thoracic spinal stenosis. Electronically signed by: Alex Graham MD (Nov 05, 2016 15:15:40)
[2016-11-05 15:19] VITALS: BP 152/73
--- NOTE | 2016-11-05 17:34 | PDOC ---
Provider Note Provider Note IR Note: Asked to consider vertebral augmentation---thank you Heike is a 76 YO female with acute on chronic upper back pain, with decreased mobility. PMC MRI T-spine done today revealed acute/subacute osteoporotic T6 fracture, without retropulsion. She is tender to palpation over mid T-spine. I would consider Heike a reasonable candidate for T6 vertebral augmentation. No significant medical co-morbidities. No coagulopathy. I will tentatively place her on my IR schedule for tomorrow. Thanks again. QIAN RIVERA MD Nov 05, 2016 17:34
[2016-11-05 19:30] VITALS: BP 138/60
[2016-11-05 23:33] VITALS: BP 141/72
[2016-11-06] VITALS (13 sets, daily range): BP systolic 129–178; BP diastolic 68–95
--- NOTE | 2016-11-06 03:42 | CONS ---
DATE OF CONSULTATION: LOCATION: She is in room 473. ATTENDING PHYSICIAN: Dr. Porsche Polanco. The patient was seen at the request of Dr. Polanco for rehab evaluation. HISTORY OF PRESENT ILLNESS: This is a 76-year-old female with severe upper back pain without any specific injury going on for about a week. The patient denies any radiation of pain to the extremities, pain makes her less mobile. She has not used the stairs for a while. As per her [id number], she moves stable around. The patient having some problems with her memory and they are thinking about placing her in an assisted living place. The patient is not driving. The patient admits some numbness and also admits some right shoulder area pain. The patient with known hypertension, hyperlipidemia, and some lower back pain status post hysterectomy; not known allergic to any medication. She also admits right shoulder area pain. The patient had radiological studies including CT scan and MRI scan. CT scan showed multiple thoracolumbar compression deformities mostly chronic; few may have subacute component. MRI scan done today; revealed acute T6 vertebral body compression fracture without significant osseous retropulsion. There is L1 compression fracture with edema anteriorly although no significant edema posteriorly, possibly due to acute on chronic fracture old T12 and T9 vertebral body compression deformities, no evidence of thoracic spinal stenosis. The patient has been independent with her mobility and self-care skills and has been using a roller walker and she also apparently having some balance problems. The patient denies any trouble with her bowel or bladder control. PHYSICAL EXAMINATION: Today revealed an elderly, thin built female. She is alert, oriented to place and person, follows commands appropriately, moves all four extremities voluntarily where she had 4+/5 grade muscle strength. Deep tendon reflexes are exaggerated at both knees and ankles. She had equal perception of touch and pinprick sensation bilaterally. She had some hand intrinsic muscle atrophy. She had some stiffness of her right shoulder limiting her from full abduction and external rotation and some tenderness to palpation over anterior aspect of right shoulder. No significant tenderness to palpation over thoracic or lumbar spine area. Straight leg raising test is negative bilaterally. She is independent with bed mobility and transfer and I saw her walking using a roller walker without much difficulty. Her skin is intact at this time. ASSESSMENT: An elderly female with acute T6 vertebral body compression fracture with some back pain and old T9-T12 vertebral body compression fractures; also presents with degenerative changes in the cervical spine, not clearly seen for MRI scan and she presents with numbness in her hands and hyperreflexia in her knees and ankles and some high level balance problems to rule out cervical spinal stenosis. RECOMMENDATION: To ask Interventional Radiology to see her for consideration of T6 kyphoplasty and also try her with a ____ back support and stop lumbar corset and to obtain MRI scan of cervical vertebrae to rule out any cervical spinal stenosis causing problems with her hyperreflexia of her lower extremities and balance problems. Dr. Polanco, I appreciate asking me to participate in care of this interesting patient. I will be glad to follow her with you as needed for her rehabilitation. JAIME GANNON MD DR: JORDIN/nts JOB#: [id number] / [id number]
[2016-11-06] MEDS: HYDROCODONE/APAP 7.5/325MG TABLET. PO PRN ×2 (05:45→14:35)
[2016-11-06] MEDS: PANTOPRAZOLE 40 MG TABLET. PO SCH (07:30)
[2016-11-06] MEDS ORDERED: LIDOCAINE 1% / SOD BICARB 8.4% 20 ML VIAL. IJ ONE ×2 (08:42→09:15)
[2016-11-06] MEDS: SENNOSIDES/DOCUSATE 8.6/50MG TABLET. PO SCH (09:00)
[2016-11-06] MEDS: FERROUS SULFATE 325 MG TABLET PO SCH ×2 (09:00→19:16)
--- NOTE | 2016-11-06 09:00 | RAD ---
PROCEDURE MRI cervical spine without contrast HISTORY Hyperreflexia lower extremities, numbness in the hands bilaterally TECHNIQUE Multiplanar, multi sequential non contrast MR imaging was performed of the cervical spine. COMPARISON There is no previous MRI exam available, correlation made with CT cervical spine February 07, 2016 FINDINGS There is accentuation of the lordotic curvature. Cervical vertebral body stature is adequate. Cervical cord caliber is within normal limits, no convincing defined or expansile signal abnormality, limited evaluation for subtle signal change due to motion artifact. There is mild degenerative disc disease at C4-5. AP alignment is adequate. C2-C3: Spinal canal and neural foramina are adequate. C3-C4: There is minimal disc osteophyte complex. There is mild, right greater than left uncovertebral degenerative change. Spinal canal and left neural foramina are adequate, mild narrowing of the right neural foramen. C4-5: There is moderate to severe facet degenerative change bilaterally. Spinal canal and neural foramina are adequate. C5-6: There is moderate facet degenerative change. Neural foramina and spinal canal are adequate. C6-7: Spinal canal and neural foramina are adequate. C7-T1: Spinal canal and neural foramina are adequate. There is fusion along the posterior and anterior annulus. IMPRESSION 1. There is no significant cervical spinal stenosis. There is mild narrowing of the right C3-4 neural foramen by uncovertebral degenerative change. There is no convincing cervical cord signal abnormality allowing for motion artifact. There is multilevel cervical facet degenerative change. Electronically signed by: Alex Graham MD (Nov 06, 2016 08:58:22)
[2016-11-06] MEDS ORDERED: MIDAZOLAM HCL/PF 5 MG/5 ML VIAL ONE (09:02)
[2016-11-06] MEDS ORDERED: FENTANYL PF 250 MCG/5 ML VIAL. ONE (09:02)
[2016-11-06] MEDS ORDERED: CEFAZOLIN 1GM IVPB FOR OMNI 50 ML IV ONE ×2 (09:02→09:15)
[2016-11-06] MEDS ORDERED: MIDAZOLAM HCL/PF 5 MG/5 ML VIAL IV ONE (09:15)
[2016-11-06] MEDS ORDERED: FENTANYL PF 250 MCG/5 ML VIAL. IV ONE (09:15)
--- NOTE | 2016-11-06 09:41 | PDOC ---
MODERATE SEDATION ASSESSMENT RISKS/ALTERNATIVES Risks/Alternatives Risks and alternatives of this type of sedation and procedure discussed with: RISK/ALTERNATIVES: Patient H & P ON CHART H & P H & P on chart and reviewed for co-morbid conditions and appropriate labs. H&P ON CHART: Yes STATUS PREG STATUS ASSESSED: N/A MEDS/ALLERGIES REVIEWED Meds/Allergies Reviewed Medications and Allergies including time and route of recently administered narcotics and sedatives. MEDS/ALLERGIES REVIEWED: Yes ASA RATING ASA RATING: II AIRWAY ASSESSMENT Airway Assessment Airway patency, oral function limitations, presence of caps, crowns, dentures, partials, and ability to extend neck assessed. AIRWAY ASSESSMENT: Yes MALLAMPATI SCORE MALLAMPATI SCORE: II PRE-SEDATION ASSESSMENT PRE-SEDATION ASSESSMENT: Yes QIAN RIVERA MD Nov 06, 2016 09:41
--- NOTE | 2016-11-06 09:43 | PDOC ---
Exam Front End Drupal Developer Front End Drupal Developer Panfilo Nurse Emergency Nurse Emergency F Ndumbu Pre-Procedure Diagnosis Pre-Procedure Diagnosis 76 YO female with recent, osteoporotic T6 compression fracture, with severe pain Post-Procedure Diagnosis Post-Procedure Diagnosis Same Procedure Performed Procedure Performed Fluoro guided T6 vertebroplasty Type of Anesthesia Type of Anesthesia Local + Mod sedation Estimated Blood Loss EBL: Minimal Condition of Patient Condition of Patient Stable. No apparent complication. Disposition Disposition From IR return to [facility]. F/u with [facility] and Dr Smith. Full report to follow. QIAN RIVERA MD Nov 06, 2016 09:43
--- NOTE | 2016-11-06 11:36 | PDOC ---
PROGRESS NOTES Chief Complaint Chief Complaint CC:back pain, Back pain compression fractures possible osteoporotic s/p Fluoro guided T6 vertebroplasty Plan PT/OT pain control no bladder or bowel incontinence SNU placement MRI C spine History of Present Illness History of Present Illness no acute events. pain better controlled. Vitals Vitals Vital Signs Date Time Temp Pulse Resp B/P Pulse Ox O2 Delivery O2 Flow Rate FiO2 11/06/16 10:30 Room Air 11/06/16 10:00 98.4 69 16 158/78 98 98.4 Physical Exam General: Alert, Oriented X3, Cooperative, No acute distress, Other (oriented 3/ 4) Heart: Normal S1, Normal S2 Abdomen: Normal bowel sounds, Soft Extremities: No clubbing, No cyanosis, No edema Skin: No rashes, No breakdown, No significant lesion Assessment and Plan Assessmemt and Plan Problems Medical Problems: (1) Compression fracture of lumbar vertebra Status: Acute (2) Compression fracture of thoracic vertebra Status: Acute Problems: Comment Review of Relevant I have reviewed the following items bubba (where applicable) has been applied. Labs Laboratory Tests Test 11/04/16 19:50 White Blood Count 7.4x10^3/uL (4.0-11.0) Red Blood Count 4.08x10^6/uL (3.50-5.40) Hemoglobin 12.4g/dL (12.0-15.5) Hematocrit 37.8% (36.0-47.0) Mean Corpuscular Volume 93fL (79-100) Mean Corpuscular Hemoglobin 30pg (25-35) Mean Corpuscular Hemoglobin Concent 33g/dL (31-37) Red Cell Distribution Width 14.4% (11.5-14.5) Platelet Count 196x10^3/uL (140-400) Neutrophils (%) (Auto) 72% (31-73) Lymphocytes (%) (Auto) 21% (24-48) Monocytes (%) (Auto) 7% (0-9) Eosinophils (%) (Auto) 0% (0-3) Basophils (%) (Auto) 1% (0-3) Neutrophils # (Auto) 5.3x10^3uL (1.8-7.7) Lymphocytes # (Auto) 1.5x10^3/uL (1.0-4.8) Monocytes # (Auto) 0.5x10^3/uL (0.0-1.1) Eosinophils # (Auto) 0.0x10^3/uL (0.0-0.7) Basophils # (Auto) 0.1x10^3/uL (0.0-0.2) Prothrombin Time 12.5SEC (11.7-14.0) Prothromb Time International Ratio 1.0 (0.8-1.1) Sodium Level 143mmol/L (136-145) Potassium Level 4.1mmol/L (3.5-5.1) Chloride Level 105mmol/L (98-107) Carbon Dioxide Level 29mmol/L (21-32) Anion Gap 9 (6-14) Blood Urea Nitrogen 18mg/dL (7-20) Creatinine 0.8mg/dL (0.6-1.0) Estimated GFR (Cockcroft-Gault) 69.4 Glucose Level 100mg/dL (70-99) Calcium Level 9.6mg/dL (8.5-10.1) Total Bilirubin 0.5mg/dL (0.2-1.0) Direct Bilirubin 0.1mg/dL (0.0-0.2) Aspartate Amino Transf (AST/SGOT) 33U/L (15-37) Alanine Aminotransferase (ALT/SGPT) 30U/L (14-59) Alkaline Phosphatase 113U/L (46-116) Total Protein 6.9g/dL (6.4-8.2) Albumin 3.8g/dL (3.4-5.0) 25-Hydroxy Vitamin D Total 20.4ng/mL (30.0-100.0) Medications Current Medications Acetaminophen/ Hydrocodone Bitart (Lortab 5/325) 1 tab 1X ONCE PO Last administered on 11/04/16 18:40; Start 11/04/16 at 18:45; Stop 11/04/16 at 18:46 ; Status DC Morphine Sulfate 4 mg 1X ONCE IV Last administered on 11/04/16 19:57; Start 11/04/16 at 20:00; Stop 11/04/16 at 20:01; Status DC Ondansetron HCl (Zofran) 4 mg PRN Q8HRS PRN IV NAUSEA/VOMITING; Start 11/04/16 at 19:45; Stop 11/05/16 at 19:44; Status DC Morphine Sulfate 4 mg PRN Q2HR PRN IV PAIN Last administered on 11/05/16 02:54 ; Start 11/04/16 at 20:30; Stop 11/05/16 at 20:29; Status DC Acetaminophen 650 mg 650 mg PRN Q4HRS PRN PO FEVER; Start 11/04/16 at 19:45; Stop 11/05/16 at 19:44; Status DC Sodium Chloride (Iv Sodium Chloride 0.9% 1000ml Bag) 1,000 ml @ 100 mls/hr 1X ONCE IV Last administered on 11/04/16 23:37; Start 11/04/16 at 23:30; Stop at 09:29; Status DC Aspirin (Children'S Aspirin) 81 mg DAILY PRN PO PAIN; Start 11/04/16 at 22:30 Calcium Carbonate/ Glycine (Tums) 500 mg PRN QID PRN PO INDIGESTION; Start 08/11 at 22:30 Ferrous Sulfate (Feosol) 325 mg BIDAFTMEAL PO Last administered on 11/05/16 18 :41; Start 11/05/16 at 09:00 Acetaminophen/ Hydrocodone Bitart (Lortab 7.5/325) 1 tab PRN Q3HRS PRN PO PAIN Last administered on 11/06/16 05:45; Start 11/04/16 at 22:30 Magnesium Hydroxide (Milk Of Magnesia) 2,400 mg 1X PRN PRN PO CONSTIPATION; Start 11/04/16 at 22:30 Pantoprazole Sodium (Protonix) 40 mg DAILYAC PO Last administered on 11/05/16 09:27; Start 11/05/16 at 07:30 Prochlorperazine Maleate (Compazine) 10 mg PRN Q4HRS PRN PO NAUSEA/VOMITING; Start 11/04/16 at 22:30 Senna/Docusate Sodium (Senna Plus) 1 tab DAILY PO Last administered on 09:27; Start 11/05/16 at 09:00 Zolpidem Tartrate (Ambien) 5 mg PRN QHS PRN PO INSOMNIA, MAY REPEAT IN 1HR; Start 11/04/16 at 22:30 Info (Do NOT chart on this placeholder) 0.5 each 1X ONCE MC ; Start 11/05/16 at 09:00; Stop 11/05/16 at 09:01; Status UNV Pneumococcal Polyvalent Vaccine (Do NOT chart on this placeholder) 0.5 each 1X ONCE MC ; Start 11/04/16 at 23:30; Stop 11/04/16 at 23:31; Status UNV Influenza Virus Vaccine Quadrival (Fluarix Quad [id number] Syringe) 0.5 ml ONCE ONCE VAX IM Last administered on 11/05/16 09:30; Start 11/05/16 at 09:00; Stop 11/05/16 at 09:01; Status DC Pneumococcal Polyvalent Vaccine (Pneumovax 23) 0.5 ml ONCE ONCE VAX IM Last administered on 11/05/16 09:32; Start 11/05/16 at 09:00; Stop 11/05/16 at 09:01 ; Status DC Lidocaine/Sodium Bicarbonate (Buffered Lidocaine 1%) 20 ml STK-MED ONCE IJ ; Start 11/06/16 at 08:42; Stop 11/06/16 at 08:43; Status DC Midazolam HCl (Versed) 5 mg STK-MED ONCE .ROUTE ; Start 11/06/16 at 09:02; Stop 11/06/16 at 09:03; Status DC Fentanyl Citrate 250 mcg 250 mcg STK-MED ONCE .ROUTE ; Start 11/06/16 at 09:02; Stop 11/06/16 at 09:03; Status DC Cefazolin Sodium (Ancef 1gm Ivpb For Omni) 50 ml @ As Directed STK-MED ONCE IV ; Start 11/06/16 at 09:02; Stop 11/06/16 at 09:03; Status DC Lidocaine/Sodium Bicarbonate (Buffered Lidocaine 1%) 20 ml 1X ONCE IJ Last administered on 11/06/16 09:40; Start 11/06/16 at 09:15; Stop 11/06/16 at 09:19 ; Status DC Midazolam HCl (Versed) 5 mg 1X ONCE IV Last administered on 11/06/16 09:41; Start 11/06/16 at 09:15; Stop 11/06/16 at 09:19; Status DC Fentanyl Citrate 250 mcg 250 mcg 1X ONCE IV Last administered on 11/06/16 09: 41; Start 11/06/16 at 09:15; Stop 11/06/16 at 09:19; Status DC Cefazolin Sodium (Ancef 1gm Ivpb For Omni) 50 ml @ 0 mls/hr 1X ONCE IV Last administered on 11/06/16t 09:42; Start 11/06/16 at 09:15; Stop 11/06/16 at 09:19 ; Status DC Active Scripts Active Ambien (Zolpidem Tartrate) 5 Mg Tablet 5 Mg PO PRN QHS PRN 14 Days Senna-Time S Tablet (Sennosides/Docusate Sodium) 1 Each Tablet 1 Tab PO DAILY 30 Days Compazine (Prochlorperazine Maleate) 5 Mg Tablet 10 Mg PO PRN Q4HRS PRN 14 Days Pantoprazole Sodium 40 Mg Tablet. 40 Mg PO DAILYAC 30 Days Thera-M Tablet (Multivits,Ca,Minerals/Iron/Fa) 1 Each Tablet 1 Tab PO DAILY 30 Days Milk Of Magnesia (Magnesium Hydroxide) 400 Mg/5 Ml Oral.susp 2,400 Mg PO 1X PRN PRN 14 Days Hydrocodone-Apap 7.5-325 (Hydrocodone Bit/Acetaminophen) 1 Each Tablet 1 Tab PO PRN Q3HRS PRN 14 Days Feosol (Ferrous Sulfate) 325 Mg Tablet 325 Mg PO BIDAFTMEAL 30 Days Calcium Carbonate 200 Mg Tab.chew 500 Mg PO PRN QID PRN 30 Days [Bisacodyl] 10 MG Supp.rect 10 Mg [place] 1X PRN PRN 30 Days Reported Aspirin 81 Mg Tab.chew 81 Mg PO PRN Tylenol (Acetaminophen) 325 Mg Tablet 650 Mg PO PRN PRN Vitamin D2 (Ergocalciferol (Vitamin D2)) 50,000 Unit Capsule 50,000 Unit PO WEEKLY Percocet 7.5-325 Mg Tablet (Oxycodone/Acetaminophen) 1 Each Tablet 1 Tab PO PRN Q6HRS PRN Celebrex (Celecoxib) 100 Mg Capsule 100 Mg PO BID 30 Days Hydrocodone-Apap 7.5-325 (Hydrocodone Bit/Acetaminophen) 1 Each Tablet 1 Each PO PRN AFTMEAL Aspir 81 (Aspirin) 81 Mg Tablet. 81 Mg PO DAILY08 Vitals/I & O Vital Sign - Last 24 Hours 11/05/16 11/05/16 11/05/16 11/05/16 15:19 19:30 20:00 23:33 Temp 97.7 97.7 98.1 97.7 97.7 98.1 Pulse 73 87 78 Resp 18 16 20 B/P 152/73 138/60 141/72 Pulse Ox 97 95 96 O2 Delivery Room Air Room Air Room Air Room Air 11/06/16 11/06/16 11/06/16 11/06/16 03:04 07:44 07:51 08:21 Temp 97.9 98.4 97.9 98.4 Pulse 74 73 Resp 16 16 B/P 143/69 141/68 Pulse Ox 94 97 O2 Delivery Room Air Room Air Room Air Room Air 11/06/16 11/06/16 11/06/16 11/06/16 09:35 09:41 10:00 10:30 Temp 98.4 98.4 Pulse 80 69 Resp 12 12 16 B/P 158/78 Pulse Ox 100 98 O2 Delivery Room Air Room Air Room Air Room Air Intake and Output 11/05/16 11/05/16 11/06/16 15:00 23:00 07:00 Intake Total 450 ml 120 ml Balance 450 ml 120 ml GROVER SMITH MD Nov 06, 2016 11:36
--- NOTE | 2016-11-06 15:46 | PDOC ---
PROGRESS NOTES Subjective Subjective She still admits back pain. Objective Objective Vital Signs Date Time Temp Pulse Resp B/P Pulse Ox O2 Delivery O2 Flow Rate FiO2 11/06/16 14:35 Room Air 11/06/16 11:25 68 16 136/73 98 11/06/16 10:00 98.4 98.4 Intake and Output 11/06/16 07:00 Intake Total 570 ml Balance 570 ml Intake Oral 570 ml # Voids 6 Physical Exam Physical Exam She is awake and talking and working with physical therapy and mri scan of cervical spine failed to reveal any central spinal stenosis to be considered responsible for her balance problems. Assessment Assessment Problems Medical Problems: (1) Compression fracture of lumbar vertebra Status: Acute (2) Compression fracture of thoracic vertebra Status: Acute Plan Plan of Care To try her with HARRIS back support brace and home when medically stable. Comment Review of Relevant I have reviewed the following items bubba (where applicable) has been applied. Labs Laboratory Tests Test 11/04/16 19:50 White Blood Count 7.4x10^3/uL (4.0-11.0) Red Blood Count 4.08x10^6/uL (3.50-5.40) Hemoglobin 12.4g/dL (12.0-15.5) Hematocrit 37.8% (36.0-47.0) Mean Corpuscular Volume 93fL (79-100) Mean Corpuscular Hemoglobin 30pg (25-35) Mean Corpuscular Hemoglobin Concent 33g/dL (31-37) Red Cell Distribution Width 14.4% (11.5-14.5) Platelet Count 196x10^3/uL (140-400) Neutrophils (%) (Auto) 72% (31-73) Lymphocytes (%) (Auto) 21% (24-48) Monocytes (%) (Auto) 7% (0-9) Eosinophils (%) (Auto) 0% (0-3) Basophils (%) (Auto) 1% (0-3) Neutrophils # (Auto) 5.3x10^3uL (1.8-7.7) Lymphocytes # (Auto) 1.5x10^3/uL (1.0-4.8) Monocytes # (Auto) 0.5x10^3/uL (0.0-1.1) Eosinophils # (Auto) 0.0x10^3/uL (0.0-0.7) Basophils # (Auto) 0.1x10^3/uL (0.0-0.2) Prothrombin Time 12.5SEC (11.7-14.0) Prothromb Time International Ratio 1.0 (0.8-1.1) Sodium Level 143mmol/L (136-145) Potassium Level 4.1mmol/L (3.5-5.1) Chloride Level 105mmol/L (98-107) Carbon Dioxide Level 29mmol/L (21-32) Anion Gap 9 (6-14) Blood Urea Nitrogen 18mg/dL (7-20) Creatinine 0.8mg/dL (0.6-1.0) Estimated GFR (Cockcroft-Gault) 69.4 Glucose Level 100mg/dL (70-99) Calcium Level 9.6mg/dL (8.5-10.1) Total Bilirubin 0.5mg/dL (0.2-1.0) Direct Bilirubin 0.1mg/dL (0.0-0.2) Aspartate Amino Transf (AST/SGOT) 33U/L (15-37) Alanine Aminotransferase (ALT/SGPT) 30U/L (14-59) Alkaline Phosphatase 113U/L (46-116) Total Protein 6.9g/dL (6.4-8.2) Albumin 3.8g/dL (3.4-5.0) 25-Hydroxy Vitamin D Total 20.4ng/mL (30.0-100.0) Medications Current Medications Acetaminophen/ Hydrocodone Bitart (Lortab 5/325) 1 tab 1X ONCE PO Last administered on 11/04/16 18:40; Start 11/04/16 at 18:45; Stop 11/04/16 at 18:46 ; Status DC Morphine Sulfate 4 mg 1X ONCE IV Last administered on 11/04/16 19:57; Start 11/04/16 at 20:00; Stop 11/04/16 at 20:01; Status DC Ondansetron HCl (Zofran) 4 mg PRN Q8HRS PRN IV NAUSEA/VOMITING; Start 11/04/16 at 19:45; Stop 11/05/16 at 19:44; Status DC Morphine Sulfate 4 mg PRN Q2HR PRN IV PAIN Last administered on 11/05/16 02:54 ; Start 11/04/16 at 20:30; Stop 11/05/16 at 20:29; Status DC Acetaminophen 650 mg 650 mg PRN Q4HRS PRN PO FEVER; Start 11/04/16 at 19:45; Stop 11/05/16 at 19:44; Status DC Sodium Chloride (Iv Sodium Chloride 0.9% 1000ml Bag) 1,000 ml @ 100 mls/hr 1X ONCE IV Last administered on 11/04/16 23:37; Start 11/04/16 at 23:30; Stop at 09:29; Status DC Aspirin (Children'S Aspirin) 81 mg DAILY PRN PO PAIN; Start 11/04/16 at 22:30 Calcium Carbonate/ Glycine (Tums) 500 mg PRN QID PRN PO INDIGESTION; Start 08/11 at 22:30 Ferrous Sulfate (Feosol) 325 mg BIDAFTMEAL PO Last administered on 11/05/16 18 :41; Start 11/05/16 at 09:00 Acetaminophen/ Hydrocodone Bitart (Lortab 7.5/325) 1 tab PRN Q3HRS PRN PO PAIN Last administered on 11/06/16 14:35; Start 11/04/16 at 22:30 Magnesium Hydroxide (Milk Of Magnesia) 2,400 mg 1X PRN PRN PO CONSTIPATION; Start 11/04/16 at 22:30 Pantoprazole Sodium (Protonix) 40 mg DAILYAC PO Last administered on 11/05/16 09:27; Start 11/05/16 at 07:30 Prochlorperazine Maleate (Compazine) 10 mg PRN Q4HRS PRN PO NAUSEA/VOMITING; Start 11/04/16 at 22:30 Senna/Docusate Sodium (Senna Plus) 1 tab DAILY PO Last administered on 09:27; Start 11/05/16 at 09:00 Zolpidem Tartrate (Ambien) 5 mg PRN QHS PRN PO INSOMNIA, MAY REPEAT IN 1HR; Start 11/04/16 at 22:30 Info (Do NOT chart on this placeholder) 0.5 each 1X ONCE MC ; Start 11/05/16 at 09:00; Stop 11/05/16 at 09:01; Status UNV Pneumococcal Polyvalent Vaccine (Do NOT chart on this placeholder) 0.5 each 1X ONCE MC ; Start 11/04/16 at 23:30; Stop 11/04/16 at 23:31; Status UNV Influenza Virus Vaccine Quadrival (Fluarix Quad [id number] Syringe) 0.5 ml ONCE ONCE VAX IM Last administered on 11/05/16 09:30; Start 11/05/16 at 09:00; Stop 11/05/16 at 09:01; Status DC Pneumococcal Polyvalent Vaccine (Pneumovax 23) 0.5 ml ONCE ONCE VAX IM Last administered on 11/05/16 09:32; Start 11/05/16 at 09:00; Stop 11/05/16 at 09:01 ; Status DC Lidocaine/Sodium Bicarbonate (Buffered Lidocaine 1%) 20 ml STK-MED ONCE IJ ; Start 11/06/16 at 08:42; Stop 11/06/16 at 08:43; Status DC Midazolam HCl (Versed) 5 mg STK-MED ONCE .ROUTE ; Start 11/06/16 at 09:02; Stop 11/06/16 at 09:03; Status DC Fentanyl Citrate 250 mcg 250 mcg STK-MED ONCE .ROUTE ; Start 11/06/16 at 09:02; Stop 11/06/16 at 09:03; Status DC Cefazolin Sodium (Ancef 1gm Ivpb For Omni) 50 ml @ As Directed STK-MED ONCE IV ; Start 11/06/16 at 09:02; Stop 11/06/16 at 09:03; Status DC Lidocaine/Sodium Bicarbonate (Buffered Lidocaine 1%) 20 ml 1X ONCE IJ Last administered on 11/06/16 09:40; Start 11/06/16 at 09:15; Stop 11/06/16 at 09:19 ; Status DC Midazolam HCl (Versed) 5 mg 1X ONCE IV Last administered on 11/06/16 09:41; Start 11/06/16 at 09:15; Stop 11/06/16 at 09:19; Status DC Fentanyl Citrate 250 mcg 250 mcg 1X ONCE IV Last administered on 11/06/16 09: 41; Start 11/06/16 at 09:15; Stop 11/06/16 at 09:19; Status DC Cefazolin Sodium (Ancef 1gm Ivpb For Omni) 50 ml @ 0 mls/hr 1X ONCE IV Last administered on 11/06/16t 09:42; Start 11/06/16 at 09:15; Stop 11/06/16 at 09:19 ; Status DC Active Scripts Active Ambien (Zolpidem Tartrate) 5 Mg Tablet 5 Mg PO PRN QHS PRN 14 Days Senna-Time S Tablet (Sennosides/Docusate Sodium) 1 Each Tablet 1 Tab PO DAILY 30 Days Compazine (Prochlorperazine Maleate) 5 Mg Tablet 10 Mg PO PRN Q4HRS PRN 14 Days Pantoprazole Sodium 40 Mg Tablet. 40 Mg PO DAILYAC 30 Days Thera-M Tablet (Multivits,Ca,Minerals/Iron/Fa) 1 Each Tablet 1 Tab PO DAILY 30 Days Milk Of Magnesia (Magnesium Hydroxide) 400 Mg/5 Ml Oral.susp 2,400 Mg PO 1X PRN PRN 14 Days Hydrocodone-Apap 7.5-325 (Hydrocodone Bit/Acetaminophen) 1 Each Tablet 1 Tab PO PRN Q3HRS PRN 14 Days Feosol (Ferrous Sulfate) 325 Mg Tablet 325 Mg PO BIDAFTMEAL 30 Days Calcium Carbonate 200 Mg Tab.chew 500 Mg PO PRN QID PRN 30 Days [Bisacodyl] 10 MG Supp.rect 10 Mg [place] 1X PRN PRN 30 Days Reported Aspirin 81 Mg Tab.chew 81 Mg PO PRN Tylenol (Acetaminophen) 325 Mg Tablet 650 Mg PO PRN PRN Vitamin D2 (Ergocalciferol (Vitamin D2)) 50,000 Unit Capsule 50,000 Unit PO WEEKLY Percocet 7.5-325 Mg Tablet (Oxycodone/Acetaminophen) 1 Each Tablet 1 Tab PO PRN Q6HRS PRN Celebrex (Celecoxib) 100 Mg Capsule 100 Mg PO BID 30 Days Hydrocodone-Apap 7.5-325 (Hydrocodone Bit/Acetaminophen) 1 Each Tablet 1 Each PO PRN AFTMEAL Aspir 81 (Aspirin) 81 Mg Tablet. 81 Mg PO DAILY08 Vitals/I & O Vital Sign - Last 24 Hours 11/05/16 11/05/16 11/05/16 11/06/16 19:30 20:00 23:33 03:04 Temp 97.7 98.1 97.9 97.7 98.1 97.9 Pulse 87 78 74 Resp 16 20 16 B/P 138/60 141/72 143/69 Pulse Ox 95 96 94 O2 Delivery Room Air Room Air Room Air Room Air 11/06/16 11/06/16 11/06/16 11/06/16 07:44 07:51 08:21 09:35 Temp 98.4 98.4 Pulse 73 80 Resp 16 12 B/P 141/68 Pulse Ox 97 O2 Delivery Room Air Room Air Room Air Room Air 11/06/16 11/06/16 11/06/16 11/06/16 09:41 10:00 10:15 10:30 Temp 98.4 98.4 Pulse 69 75 Resp 08 10 16 B/P 158/78 160/74 Pulse Ox 100 98 98 O2 Delivery Room Air Room Air Room Air Room Air 11/06/16 11/06/16 11/06/16 11/06/16 10:30 10:45 11:25 14:35 Pulse 76 74 68 Resp 16 B/P 153/89 136/84 136/73 Pulse Ox 98 97 98 O2 Delivery Room Air Room Air Room Air Room Air Intake and Output 11/05/16 11/05/16 11/06/16 15:00 23:00 07:00 Intake Total 450 ml 120 ml Balance 450 ml 120 ml Nutrition Consultation Dietary Evaluation: Recommendations by RD: Increase Calorie Intake, Protein supplementation Comments: boost plus bid Expected Outcomes/Goals: to meet > 75% est nutr needs Malnutrition Findings: Body Fat Depletion (Non Severe: Mild Depletion Reduced Field Technician Strength: N/A Weight Status: Underweight Fluid Accumulation (N/A): N/A JAIME GANNON MD Nov 06, 2016 15:46
[2016-11-07 03:25] VITALS: BP 143/68
[2016-11-07 07:00] VITALS: BP 138/79
--- NOTE | 2016-11-07 07:15 | RAD ---
Fluoro guided T6 Vertebroplasty Indication: 76-year-old female with acute osteoporotic T6 vertebral body compression fracture. Severe thoracic back pain. Fluoro time: 12.8 minutes Kerma-Area Product: 9 Gycm2 Moderate sedation: 31 minutes moderate sedation was provided utilizing a total of 2 mg Versed and 100 mcg fentanyl, IV. The patient was appropriately monitored by a qualified independent observer throughout the course of moderate sedation. Antibiotic: A single dose of Ancef was administered within 1 hour of the procedure start time. Sterility: All elements of maximal sterile barrier technique, including the use of a cap, mask, sterile gown, sterile gloves, large sterile sheet, appropriate hand hygiene, and 2% chlorhexidine for cutaneous antisepsis (or acceptable alternative antiseptic per current guidelines) were utilized. Procedure: Informed consent was obtained from the patient. She was placed prone on the angiography table. Midline mid thoracic spine was prepped and draped in the usual sterile fashion, utilizing all elements of maximal sterile barrier technique, as described above. Conscious sedation was provided with IV Versed and Fentanyl. 1 gram Ancef was given IV, prophylactically. Using aseptic technique, local anesthesia, and direct fluoroscopic guidance, an 11 gauge vertebroplasty needle was successfully introduced into anterior midline of the T6 vertebral body, via left transpedicular approach. Contrast opacified polymethylmethacrylate was then slowly and carefully introduced through the vertebroplasty needle, under strict fluoroscopic control. There was resulting good filling of the T6 vertebral body, without significant extraosseous extravasation of opacified cement. The vertebroplasty needle was removed and a sterile dressing was applied. Patient tolerated the procedure well, without apparent complication. Impression: Successful, uneventful fluoro guided T6 vertebroplasty, performed via unilateral left trans pedicular approach, as described.
[2016-11-07] MEDS: FERROUS SULFATE 325 MG TABLET PO SCH (08:33)
[2016-11-07] MEDS: PANTOPRAZOLE 40 MG TABLET. PO SCH (08:33)
[2016-11-07] MEDS: SENNOSIDES/DOCUSATE 8.6/50MG TABLET. PO SCH (08:33)
--- NOTE | 2016-11-07 10:16 | PDOC ---
PROGRESS NOTES Subjective Subjective She admits continued upper back area pain and not sure she can take care of her self. Objective Objective Vital Signs Date Time Temp Pulse Resp B/P Pulse Ox O2 Delivery O2 Flow Rate FiO2 11/07/16 08:00 Room Air 11/07/16 07:00 97.5 85 18 138/79 97 97.5 Intake and Output 11/07/16 07:00 Intake Total 737 ml Balance 737 ml Intake Oral 737 ml # Voids 2 Physical Exam Physical Exam She is alert and she is moving with roller walker under supervision and she requires help with donning and doffing her HARRIS back support.Physical and occupational therapy recommends SNF and assisted living facility after SNF stay for 2 weeks as she lives alone. Assessment Assessment Problems Medical Problems: (1) Compression fracture of lumbar vertebra Status: Acute (2) Compression fracture of thoracic vertebra Status: Acute Plan Plan of Care To ask for SNF screen and transfer. Comment Review of Relevant I have reviewed the following items bubba (where applicable) has been applied. Medications Current Medications Acetaminophen/ Hydrocodone Bitart (Lortab 5/325) 1 tab 1X ONCE PO Last administered on 11/04/16 18:40; Start 11/04/16 at 18:45; Stop 11/04/16 at 18:46 ; Status DC Morphine Sulfate 4 mg 1X ONCE IV Last administered on 11/04/16 19:57; Start 11/04/16 at 20:00; Stop 11/04/16 at 20:01; Status DC Ondansetron HCl (Zofran) 4 mg PRN Q8HRS PRN IV NAUSEA/VOMITING; Start 11/04/16 at 19:45; Stop 11/05/16 at 19:44; Status DC Morphine Sulfate 4 mg PRN Q2HR PRN IV PAIN Last administered on 11/05/16 02:54 ; Start 11/04/16 at 20:30; Stop 11/05/16 at 20:29; Status DC Acetaminophen 650 mg 650 mg PRN Q4HRS PRN PO FEVER; Start 11/04/16 at 19:45; Stop 11/05/16 at 19:44; Status DC Sodium Chloride (Iv Sodium Chloride 0.9% 1000ml Bag) 1,000 ml @ 100 mls/hr 1X ONCE IV Last administered on 11/04/16 23:37; Start 11/04/16 at 23:30; Stop at 09:29; Status DC Aspirin (Children'S Aspirin) 81 mg DAILY PRN PO PAIN; Start 11/04/16 at 22:30 Calcium Carbonate/ Glycine (Tums) 500 mg PRN QID PRN PO INDIGESTION; Start 08/11 at 22:30 Ferrous Sulfate (Feosol) 325 mg BIDAFTMEAL PO Last administered on 11/07/16 08 :33; Start 11/05/16 at 09:00 Acetaminophen/ Hydrocodone Bitart (Lortab 7.5/325) 1 tab PRN Q3HRS PRN PO PAIN Last administered on 11/06/16 14:35; Start 11/04/16 at 22:30 Magnesium Hydroxide (Milk Of Magnesia) 2,400 mg 1X PRN PRN PO CONSTIPATION; Start 11/04/16 at 22:30 Pantoprazole Sodium (Protonix) 40 mg DAILYAC PO Last administered on 11/07/16 08:33; Start 11/05/16 at 07:30 Prochlorperazine Maleate (Compazine) 10 mg PRN Q4HRS PRN PO NAUSEA/VOMITING; Start 11/04/16 at 22:30 Senna/Docusate Sodium (Senna Plus) 1 tab DAILY PO Last administered on 08:33; Start 11/05/16 at 09:00 Zolpidem Tartrate (Ambien) 5 mg PRN QHS PRN PO INSOMNIA, MAY REPEAT IN 1HR; Start 11/04/16 at 22:30 Info (Do NOT chart on this placeholder) 0.5 each 1X ONCE MC ; Start 11/05/16 at 09:00; Stop 11/05/16 at 09:01; Status UNV Pneumococcal Polyvalent Vaccine (Do NOT chart on this placeholder) 0.5 each 1X ONCE MC ; Start 11/04/16 at 23:30; Stop 11/04/16 at 23:31; Status UNV Influenza Virus Vaccine Quadrival (Fluarix Quad [id number] Syringe) 0.5 ml ONCE ONCE VAX IM Last administered on 11/05/16 09:30; Start 11/05/16 at 09:00; Stop 11/05/16 at 09:01; Status DC Pneumococcal Polyvalent Vaccine (Pneumovax 23) 0.5 ml ONCE ONCE VAX IM Last administered on 11/05/16 09:32; Start 11/05/16 at 09:00; Stop 11/05/16 at 09:01 ; Status DC Lidocaine/Sodium Bicarbonate (Buffered Lidocaine 1%) 20 ml STK-MED ONCE IJ ; Start 11/06/16 at 08:42; Stop 11/06/16 at 08:43; Status DC Midazolam HCl (Versed) 5 mg STK-MED ONCE .ROUTE ; Start 11/06/16 at 09:02; Stop 11/06/16 at 09:03; Status DC Fentanyl Citrate 250 mcg 250 mcg STK-MED ONCE .ROUTE ; Start 11/06/16 at 09:02; Stop 11/06/16 at 09:03; Status DC Cefazolin Sodium (Ancef 1gm Ivpb For Omni) 50 ml @ As Directed STK-MED ONCE IV ; Start 11/06/16 at 09:02; Stop 11/06/16 at 09:03; Status DC Lidocaine/Sodium Bicarbonate (Buffered Lidocaine 1%) 20 ml 1X ONCE IJ Last administered on 11/06/16 09:40; Start 11/06/16 at 09:15; Stop 11/06/16 at 09:19 ; Status DC Midazolam HCl (Versed) 5 mg 1X ONCE IV Last administered on 11/06/16 09:41; Start 11/06/16 at 09:15; Stop 11/06/16 at 09:19; Status DC Fentanyl Citrate 250 mcg 250 mcg 1X ONCE IV Last administered on 11/06/16 09: 41; Start 11/06/16 at 09:15; Stop 11/06/16 at 09:19; Status DC Cefazolin Sodium (Ancef 1gm Ivpb For Omni) 50 ml @ 0 mls/hr 1X ONCE IV Last administered on 11/06/16 09:42; Start 11/06/16 at 09:15; Stop 11/06/16 at 09:19 ; Status DC Active Scripts Active Ambien (Zolpidem Tartrate) 5 Mg Tablet 5 Mg PO PRN QHS PRN 14 Days Senna-Time S Tablet (Sennosides/Docusate Sodium) 1 Each Tablet 1 Tab PO DAILY 30 Days Compazine (Prochlorperazine Maleate) 5 Mg Tablet 10 Mg PO PRN Q4HRS PRN 14 Days Pantoprazole Sodium 40 Mg Tablet. 40 Mg PO DAILYAC 30 Days Thera-M Tablet (Multivits,Ca,Minerals/Iron/Fa) 1 Each Tablet 1 Tab PO DAILY 30 Days Milk Of Magnesia (Magnesium Hydroxide) 400 Mg/5 Ml Oral.susp 2,400 Mg PO 1X PRN PRN 14 Days Hydrocodone-Apap 7.5-325 (Hydrocodone Bit/Acetaminophen) 1 Each Tablet 1 Tab PO PRN Q3HRS PRN 14 Days Feosol (Ferrous Sulfate) 325 Mg Tablet 325 Mg PO BIDAFTMEAL 30 Days Calcium Carbonate 200 Mg Tab.chew 500 Mg PO PRN QID PRN 30 Days [Bisacodyl] 10 MG Supp.rect 10 Mg NV 1X PRN PRN 30 Days Reported Aspirin 81 Mg Tab.chew 81 Mg PO PRN Tylenol (Acetaminophen) 325 Mg Tablet 650 Mg PO PRN PRN Vitamin D2 (Ergocalciferol (Vitamin D2)) 50,000 Unit Capsule 50,000 Unit PO WEEKLY Percocet 7.5-325 Mg Tablet (Oxycodone/Acetaminophen) 1 Each Tablet 1 Tab PO PRN Q6HRS PRN Celebrex (Celecoxib) 100 Mg Capsule 100 Mg PO BID 30 Days Hydrocodone-Apap 7.5-325 (Hydrocodone Bit/Acetaminophen) 1 Each Tablet 1 Each PO PRN AFTMEAL Aspir 81 (Aspirin) 81 Mg Tablet. 81 Mg PO DAILY08 Vitals/I & O Vital Sign - Last 24 Hours 11/06/16 11/06/16 11/06/16 11/06/16 10:15 10:30 10:30 10:45 Pulse 75 76 74 Resp 16 16 16 B/P 160/74 153/89 136/84 Pulse Ox 98 98 97 O2 Delivery Room Air Room Air Room Air Room Air 11/06/16 11/06/16 11/06/16 11/06/16 11:25 12:45 13:45 14:35 Pulse 68 83 68 Resp 16 16 16 B/P 136/73 153/89 129/73 Pulse Ox 98 94 96 O2 Delivery Room Air Room Air Room Air Room Air 11/06/16 11/06/16 11/06/16 11/06/16 14:45 16:20 19:25 20:00 Temp 97.9 97.9 Pulse 85 88 Resp 16 18 B/P 129/70 135/69 Pulse Ox 98 96 O2 Delivery Room Air Room Air Room Air Room Air 11/06/16 11/07/16 11/07/16 11/07/16 23:20 03:25 07:00 08:00 Temp 97.8 99.0 97.5 97.8 99.0 97.5 Pulse 79 76 85 Resp 18 18 18 B/P 141/72 143/68 138/79 Pulse Ox 97 97 97 O2 Delivery Room Air Room Air Room Air Room Air Intake and Output 11/06/16 11/06/16 11/07/16 15:00 23:00 07:00 Intake Total 300 ml 437 ml Balance 300 ml 437 ml Nutrition Consultation Dietary Evaluation: Recommendations by RD: Increase Calorie Intake, Protein supplementation Comments: boost plus bid Expected Outcomes/Goals: to meet > 75% est nutr needs Malnutrition Findings: Body Fat Depletion (Non Severe: Mild Depletion Reduced Residential [employer]er Strength: N/A Weight Status: Underweight Fluid Accumulation (N/A): N/A JAIME GANNON MD Nov 07, 2016 10:15
[2016-11-07 11:00] VITALS: BP 128/75
[2016-11-07 15:00] VITALS: BP 136/64
--- NOTE | 2016-11-08 00:10 | DS ---
DATE OF DISCHARGE: 11/07/2016 DISCHARGE DIAGNOSES: Back pain due to compression fracture, possible osteoporosis, status post fluoro-guided T6 vertebroplasty. BRIEF HOSPITAL COURSE: A 76-year-old female patient admitted to the hospital on 11/04/2016 for acute on chronic back pain. She was diagnosed with compression fractures as reported the imaging studies. Due to her intractable pain, Interventional Radiology has been consulted and the patient had a vertebroplasty on 11/06/2016 and also lumbar and thoracic brace has been applied. She was evaluated by Physical Medicine and Rehabilitation and agreed with current pain management. The patient did not have any incontinence such as bowel or bladder dysfunction. Today, she deemed clinically stable enough to [facility] and follow up with Dr. Smith and primary care doctor in weeks. DISCHARGE EXAMINATION: GENERAL: Alert and oriented x 3. HEART: S1, S2 present. CHEST: Anterior chest clear. Brace present. LUNGS: Clear to auscultation. ABDOMEN: Soft, nontender, no organomegaly. EXTREMITIES: No edema. DISCHARGE DISPOSITION: snf facility. DISCHARGE CONDITION: Stable. PROGNOSIS: Guarded. FOLLOWUP: With Dr. Smith and primary care doctor in 1-4 weeks. MEDICATIONS: Reviewed and reconciled. Please see MRAD. Total time spent for discharge is 32 minutes for patient education, counseling, and coordination of care. GROVER SMITH MD DR: JERRY/lion JOB#: [id number] / [id number]
== END 2016-11-07 17:15 | DRG 516 ==
LOC: ER 17:15 → 6 SOUTH 19:32 → ER 20:37
PROVIDERS: ADMIT Internal Medicine; ATTEND Internal Medicine
PROC: 0PU43JZ Supplement Thoracic Vertebra with Synthetic Substitute, Percutaneous Approach (ICD-10-PCS; principal; 2016-11-07)
DX: M80.08XA Age-related osteoporosis with current pathological fracture, vertebra(e), initial encounter for fracture (principal); Z68.1 Body mass index [BMI] 19.9 or less, adult; E78.5 Hyperlipidemia, unspecified; R63.6 Underweight; F03.90 Unspecified dementia, unspecified severity, without behavioral disturbance, psychotic disturbance, mood disturbance, and anxiety; G89.29 Other chronic pain; I10 Essential (primary) hypertension; Z90.710 Acquired absence of both cervix and uterus; M54.5 Low back pain
CPT/HCPCS: 22510; 36415; 71250; 72141; 72146; 80048; 80076; 82306; 85027; 85610; 90686; 90732; 96374; C1758; C1892; J0690; J2250; J2270; J3010; J7030; 97116; 97530; 97535; 99285-25

== ENCOUNTER 2018-04-06 09:15 | Emergency (ER) | payer MEDICARE, OTHER ==
[~2018-04-06] VITALS: Ht 170.2 cm; Wt 49.9 kg
[~2018-04-06 09:15] MED LIST changes: +ASPI-630 PO; -ERGO500012 PO; +ERGO500027 PO; -MAGN400O4 PO; +MAGN400O7 PO; -OXYC-244 PO; +OXYC-327 PO
--- NOTE | 2018-04-06 09:45 | PHYS DOC ---
Past Medical History Past Medical History: Dementia, Other Additional Past Medical Histor: BACK PAIN Past Surgical History: Hysterectomy Alcohol Use: None Drug Use: None Social History Narrative: patient lives in an independent living facility [facility] HPI Patient is an 78-year-old female who presents to the emergency department via EMS from her independent living facility. According to EMS report, the facility staff stated that the patient had been complaining of pain in her back for the past 6 days. The patient had a urine specimen sent to the lab for analysis yesterday although no results were received. The staff thought that the patient might be a little altered but the patient appears coherent, and is not confused. She does, according to prior charts, had an underlying history of dementia. She states that she has had some back discomfort on and off for the past week, but she has chronic back pain, and her back pain is no different than it normally is, and she is not having any pain at this time, including in her back. She denies any recent falls or injuries, denies any headache, neck pain, or current back pain today. She has not had any abdominal pain, numbness, or weakness in her extremities. She has no complaints at this time. She has not been febrile. Review of her last records reveals that she has had a kyphoplasty in the past with multiple compression fractures. Review of Systems Review of Systems Constitutional: Denies fever or chills [] Eyes: Denies change in visual acuity, redness, or eye pain [] HENT: Denies nasal congestion or sore throat [] Respiratory: Denies cough or shortness of breath [] Cardiovascular: The patient denies any shortness of breath, chest pain, palpitations, or orthopnea [] GI: Denies abdominal pain, nausea, vomiting, bloody stools or diarrhea [] : Denies dysuria or hematuria [] Musculoskeletal: Denies back pain or joint pain [] Integument: Denies rash or skin lesions [] Neurologic: Denies headache, focal weakness or sensory changes [] Endocrine: Denies polyuria or polydipsia [] All other systems were reviewed and found to be within normal limits, except as documented in this note. Current Medications Current Medications Current Medications Medications (Trade) Dose Ordered Sig/Vonda Start Time Stop Time Status Last Admin Dose Admin Ceftriaxone Sodium 50 ml @ 100 mls/hr 1X ONCE 8/12/18 11:15 04/06/18 11:44 DC 04/06/18 11:21 100 MLS/HR Allergies Allergies Allergies Coded Allergies Type Severity Reaction Last Updated Verified No Known Drug Allergies 02/21/16 No Physical Exam Physical Exam PHYSICAL EXAM: CONSTITUTIONAL: Well developed, well nourished HEAD: normocephalic, atraumatic EENT: PERRL, EOMI. Conjunctivae normal color, sclerae non-icteric; moist mucous membranes. NECK: Supple, non-tender; no meningismus. LUNGS: Lungs CTA, breathing even and unlabored. Normal air movement. HEART: Regular rate and rhythm, no murmur CHEST: No deformity; non-tender ABDOMEN: The abdomen is soft, and non-tender, no masses or bruits. EXTREM: Normal ROM; no deformity, no calf tenderness. Normal pulses palpable in all extremities. There is no pedal edema. SKIN: No rash; no diaphoresis NEURO: Alert; the patient is oriented to person and place, disoriented to time. Otherwise, the patient exhibits Normal speech and cognition; CN's grossly intact ; strength grossly intact without focal deficit. BACK: No CVA TTP. There is no midline vertebral tenderness to palpation to the thoracic or lumbar spine. Current Patient Data Lab Values Laboratory Tests Test 04/06/18 09:36 04/06/18 09:46 Urine Collection Type Unknown Urine Color Yellow Urine Clarity Clear Urine pH 6.5 Urine Specific Rowe 1.020 Urine Protein Negative mg/dL (NEG-TRACE) Urine Glucose (UA) Negative mg/dL (NEG) Urine Ketones (Stick) Trace mg/dL (NEG) Urine Blood Small (NEG) Urine Nitrite Positive (NEG) Urine Bilirubin Negative (NEG) Urine Urobilinogen Dipstick 1.0 mg/dL (0.2 mg/dL) Urine Leukocyte Esterase Moderate (NEG) Urine RBC 0 /HPF (0-2) Urine WBC 5-10 /HPF (0-4) Urine Squamous Epithelial Cells Few /LPF Urine Bacteria Many /HPF (0-FEW) Urine Mucus Mod /LPF White Blood Count 6.9 x10^3/uL (4.0-11.0) Red Blood Count 4.04 x10^6/uL (3.50-5.40) Hemoglobin 12.9 g/dL (12.0-15.5) Hematocrit 38.6 % (36.0-47.0) Mean Corpuscular Volume 95 fL (79-100) Mean Corpuscular Hemoglobin 32 pg (25-35) Mean Corpuscular Hemoglobin Concent 34 g/dL (31-37) Red Cell Distribution Width 13.5 % (11.5-14.5) Platelet Count 235 x10^3/uL (140-400) Neutrophils (%) (Auto) 65 % (31-73) Lymphocytes (%) (Auto) 25 % (24-48) Monocytes (%) (Auto) 8 % (0-9) Eosinophils (%) (Auto) 1 % (0-3) Basophils (%) (Auto) 1 % (0-3) Neutrophils # (Auto) 4.5 x10^3uL (1.8-7.7) Lymphocytes # (Auto) 1.7 x10^3/uL (1.0-4.8) Monocytes # (Auto) 0.5 x10^3/uL (0.0-1.1) Eosinophils # (Auto) 0.1 x10^3/uL (0.0-0.7) Basophils # (Auto) 0.1 x10^3/uL (0.0-0.2) Sodium Level 140 mmol/L (136-145) Potassium Level 3.9 mmol/L (3.5-5.1) Chloride Level 104 mmol/L (98-107) Carbon Dioxide Level 31 mmol/L (21-32) Anion Gap 5 (6-14) L Blood Urea Nitrogen 16 mg/dL (7-20) Creatinine 0.9 mg/dL (0.6-1.0) Estimated GFR (Cockcroft-Gault) 60.2 BUN/Creatinine Ratio 18 (6-20) Glucose Level 104 mg/dL (70-99) H Calcium Level 9.7 mg/dL (8.5-10.1) Total Bilirubin 0.6 mg/dL (0.2-1.0) Aspartate Amino Transferase (AST) 19 U/L (15-37) Alanine Aminotransferase (ALT) 17 U/L (14-59) Alkaline Phosphatase 124 U/L (46-116) H Total Protein 7.7 g/dL (6.4-8.2) Albumin 3.7 g/dL (3.4-5.0) Albumin/Globulin Ratio 0.9 (1.0-1.7) L Lipase 94 U/L (73-393) Laboratory Tests 04/06/18 09:46 Laboratory Tests 04/06/18 09:46 EKG EKG [] Radiology/Procedures Radiology/Procedures [PROCEDURE: LUMBAR SPINE 2-3V Thoracic spine, 3 views, 04/06/2018: HISTORY: Chronic back pain The bony structures are demineralized. There are old vertebroplasty change is present at T6 and T10. T9 and T12 vertebral compression deformities appear unchanged since an MR study from 11/05/2016. No definite new fracture is seen. IMPRESSION: 1. Demineralization. 2. Old thoracic vertebral compression fractures and vertebroplasty changes as described above. Lumbar spine, 3 views, 04/06/2018: There is severe bony demineralization. There are T12 and L1 vertebral compression fractures which appear unchanged since the 11/05/2016 MR study. There are mild concave endplate deformities at L2 of indeterminate age. No definite new fracture is seen. There are scattered degenerative changes. Aortoiliac calcific plaquing is present. IMPRESSION: 1. Old L1 vertebral compression fracture. 2. Mild concave endplate deformities at L2 of indeterminate ages.] Course & Med Decision Making Course & Med Decision Making Pertinent Labs and Imaging studies reviewed. (See chart for details) [11:45 AM: The patient's condition remained stable. She is ambulatory without difficulty, stable on her feet and has no complaints at this time. She'll be treated for her urinary tract infection. I discussed importance of close follow- up with her PCP and return precautions.] Her mental status remained stable. Dragon Disclaimer Dragon Disclaimer This electronic medical record was generated, in whole or in part, using a voice recognition dictation system. Departure Departure Impression: Primary Impression: UTI (urinary tract infection) Disposition: 01 HOME, SELF-CARE Condition: STABLE Referrals: TRISTIN FERNANDEZ DO (PCP) Patient Instructions: Urinary Tract Infection Scripts Nitrofurantoin Monohyd/M-Cryst (MACROBID 100 MG CAPSULE) 100 Mg Capsule 1 CAP PO BID, #14 CAP Prov: CAMERON MCNEILL MD 04/06/18 CAMERON MCNEILL MD Apr 06, 2018 09:45
[2018-04-06 10:10] LABS: CALCIUM 9.7 mg/dL (8.5-10.1); CREATININE 0.9 mg/dL (0.6-1.0); GFR 60.2; POTASSIUM 3.9 mmol/L (3.5-5.1)
[2018-04-06 10:15] LABS: ALBUMIN 3.7 g/dL (3.4-5.0); ALBUMIN/GLOBULIN RATIO 0.9 (1.0-1.7); TOTAL BILIRUBIN 0.6 mg/dL (0.2-1.0); TOTAL PROTEIN 7.7 g/dL (6.4-8.2)
[2018-04-06 10:18] LABS: BILIRUBIN,URINE NEGATIVE (NEG); CLARITY,URINE CLEAR; COLOR,URINE YELLOW; NITRITE,URINE POSITIVE (NEG); PH,URINE 6.5; PROTEIN,URINE NEGATIVE (NEG-TRACE)
[2018-04-06 10:18] LABS: BASO # 0.1 x10^3/uL (0.0-0.2); BASO % 1 % (0-3); EOS # 0.1 x10^3/uL (0.0-0.7); EOS % 1 % (0-3); HEMATOCRIT 38.6 % (36.0-47.0); HEMOGLOBIN 12.9 g/dL (12.0-15.5); LYMPH # 1.7 x10^3/uL (1.0-4.8); LYMPH % 25 % (24-48); MEAN CORPUSCULAR HEMOGLOBIN 32 pg (25-35); MEAN CORPUSCULAR HGB CONC 34 g/dL (31-37); MEAN CORPUSCULAR VOLUME 95 fL (79-100); MONO # 0.5 x10^3/uL (0.0-1.1); MONO % 8 % (0-9); NEUT # 4.5 x10^3uL (1.8-7.7); NEUT % 65 % (31-73); PLATELET COUNT 235 x10^3/uL (140-400); RED BLOOD COUNT 4.04 x10^6/uL (3.50-5.40); RED CELL DISTRIBUTION WIDTH 13.5 % (11.5-14.5); WHITE BLOOD COUNT 6.9 x10^3/uL (4.0-11.0)
[2018-04-06 10:44] LABS: BACTERIA,URINE MANY /HPF (0-FEW); RBC,URINE 0 /HPF (0-2)
[2018-04-06 10:45] LABS: SQUAMOUS EPITHELIAL CELL,UR FEW /LPF
--- NOTE | 2018-04-06 11:37 | RAD ---
Thoracic spine, 3 views, 04/06/2018: HISTORY: Chronic back pain The bony structures are demineralized. There are old vertebroplasty change is present at T6 and T10. T9 and T12 vertebral compression deformities appear unchanged since an MR study from 11/05/2016. No definite new fracture is seen. IMPRESSION: 1. Demineralization. 2. Old thoracic vertebral compression fractures and vertebroplasty changes as described above. Lumbar spine, 3 views, 04/06/2018: There is severe bony demineralization. There are T12 and L1 vertebral compression fractures which appear unchanged since the 11/05/2016 MR study. There are mild concave endplate deformities at L2 of indeterminate age. No definite new fracture is seen. There are scattered degenerative changes. Aortoiliac calcific plaquing is present. IMPRESSION: 1. Old L1 vertebral compression fracture. 2. Mild concave endplate deformities at L2 of indeterminate ages. Electronically signed by: Joao Garcia MD (04/06/2018 11:33 AM) [facility]
[2018-04-06] MEDS ORDERED: NITR100C62 PO (11:43)
[2018-04-06 12:00] VITALS: BP 119/93
== END 2018-04-06 13:29 | disposition home or self-care (01) ==
LOC: ER 09:15
DX: N39.0 Urinary tract infection, site not specified (principal); G89.29 Other chronic pain; F03.90 Unspecified dementia, unspecified severity, without behavioral disturbance, psychotic disturbance, mood disturbance, and anxiety; Z90.710 Acquired absence of both cervix and uterus
CPT/HCPCS: 36415; 72072; 72100; 80053; 81001; 83690; 85025; 87086; 87186; 96365; 99285; J0690

== ENCOUNTER 2018-05-15 11:03 | Inpatient (IN) | payer MEDICARE, OTHER ==
[~2018-05-15] VITALS: Ht 165.1 cm; Wt 49.9 kg
[~2018-05-15 11:03] MED LIST changes: +NITR100C62 PO
[2018-05-15 11:41] LABS: BILIRUBIN,URINE SMALL (NEG); CLARITY,URINE CLEAR; COLOR,URINE YELLOW; NITRITE,URINE NEGATIVE (NEG); PH,URINE 5.5; PROTEIN,URINE NEGATIVE (NEG-TRACE); UROBILINOGEN,URINE 0.2 mg/dL (0.2 mg/dL)
[2018-05-15 11:53] LABS: HYALINE CASTS, URINE MODERATE /HPF; SQUAMOUS EPITHELIAL CELL,UR FEW /LPF
[2018-05-15 11:54] LABS: AMORPHOUS SEDIMENT,UR PRESENT /HPF; BACTERIA,URINE 0 /HPF (0-FEW); RBC,URINE 0 /HPF (0-2); WBC,URINE 0 /HPF (0-4)
--- NOTE | 2018-05-15 12:26 | RAD ---
Lumbar spine, 3 views, 05/15/2018: HISTORY: Low back pain Comparison is made to a study from 04/06/2018. The bony structures are demineralized. There is moderate loss of height of the T12, L1 and L2 vertebral bodies and mild loss of height of the L4 vertebral body. Comparison is somewhat difficult due to differences in patient rotation. The AP view suggests that the L4 superior endplate deformity may be new. There are mild scattered marginal spurs. Extensive aortoiliac calcific plaquing is present. IMPRESSION: 1. Demineralization. 2. Multiple lumbar and lower thoracic vertebral compression fractures as described above. The L4 superior endplate deformity may be new. MR scanning may be useful in dating these fractures, if clinically indicated 3. Moderate scattered degenerative changes. Electronically signed by: Joao Garcia MD (05/15/2018 12:23 PM) [facility]
[2018-05-15 14:14] LABS: BASO % 1 % (0-3); EOS % 0 % (0-3); HEMATOCRIT 42.4 % (36.0-47.0); HEMOGLOBIN 14.5 g/dL (12.0-15.5); LYMPH # 1.1 x10^3/uL (1.0-4.8); LYMPH % 14 % (24-48); MEAN CORPUSCULAR HEMOGLOBIN 32 pg (25-35); MEAN CORPUSCULAR HGB CONC 34 g/dL (31-37); MEAN CORPUSCULAR VOLUME 93 fL (79-100); MONO # 0.5 x10^3/uL (0.0-1.1); MONO % 7 % (0-9); NEUT # 6.1 x10^3uL (1.8-7.7); NEUT % 78 % (31-73); PLATELET COUNT 244 x10^3/uL (140-400); RED BLOOD COUNT 4.56 x10^6/uL (3.50-5.40); RED CELL DISTRIBUTION WIDTH 13.7 % (11.5-14.5); WHITE BLOOD COUNT 7.8 x10^3/uL (4.0-11.0)
--- NOTE | 2018-05-15 14:23 | RAD ---
CT of the lumbar spine without contrast, 05/15/2018: HISTORY: Back pain Noncontrast scans were obtained with multiplanar reconstructions produced. There are moderate vertebral compression deformities at T12 and L1 which appear unchanged since an old thoracic MR study from 11/05/2016. There is a mild to moderate vertebral compression deformity at L2 which is new since the MR study. There is irregular sclerosis within the vertebral body. No associated central spinal stenosis or paraspinous mass is seen. There is a mild L4 vertebral compression fracture involving primarily the superior endplate. There is mild posterior superior marginal spurring which in conjunction with posterior ligamentous thickening due to facet joint arthropathy is causing only borderline narrowing of the central spinal canal at the L3-4 level. No other fracture or destructive bony lesion is seen. There are moderate degenerative changes involving the facet joints bilaterally in the lower lumbar spine. There are mild posterior disc bulges at L4-5 and L5-S1. There is mild inferior foraminal narrowing bilaterally at those levels. No disc herniation or high-grade central spinal stenosis is evident. Moderate aortoiliac calcific plaquing is present. Several small bilateral intrarenal calculi are noted. There are probable small parapelvic renal cysts on the left. IMPRESSION: 1. Old unchanged T12 and L1 vertebral compression fractures. 2. L2 vertebral compression fracture which is new since 11/05/2016. There is patchy sclerosis within that vertebral body which may be related to the healing process, however, the possibility of blastic metastatic disease should be considered. 3. Mild L4 vertebral compression fracture of indeterminate age. 4. Mild scattered degenerative changes as described above. 5. Small bilateral nonobstructing intrarenal calculi. PQRS Compliance Statement: One or more of the following individualized dose reduction techniques were utilized for this examination: 1. Automated exposure control 2. Adjustment of the mA and/or kV according to patient size 3. Use of iterative reconstruction technique Electronically signed by: Joao Garcia MD (05/15/2018 2:19 PM) [facility]
[2018-05-15 14:26] LABS: CALCIUM 10.6 mg/dL (8.5-10.1); CREATININE 0.7 mg/dL (0.6-1.0); GFR 80.5
[2018-05-15 14:32] LABS: ALBUMIN 4.2 g/dL (3.4-5.0); ALBUMIN/GLOBULIN RATIO 1.1 (1.0-1.7); TOTAL BILIRUBIN 0.7 mg/dL (0.2-1.0); TOTAL PROTEIN 8.1 g/dL (6.4-8.2)
--- NOTE | 2018-05-15 15:35 | RAD ---
CT head and cervical spine without contrast History: Fall, confusion Technique: Noncontrast CT imaging was performed of the head and cervical spine. Multiplanar reconstruction images are submitted. Exposure: One or more of the following individualized dose reduction techniques were utilized for this examination: 1. Automated exposure control 2. Adjustment of the mA and/or kV according to patient size 3. Use of iterative reconstruction technique. Head CT Comparison: February 07, 2016 Findings: No acute extra-axial or parenchymal hemorrhage is identified. There is no significant intra-axial mass effect, midline shift, or extra-axial fluid collection. The quevedo-white differentiation of the major vascular territories is preserved. Ventricular size is proportionate to the sulcal spaces, mild generalized supratentorial atrophy. There is multifocal [id number] ill-defined low-density of the supratentorial white matter bilaterally as seen previously. The mastoid air cells and the visualized paranasal sinuses are aerated. There is no significant focal calvarial abnormality. Impression: 1. No acute intracranial abnormality is identified. There is mild generalized supratentorial atrophy. Scattered ill-defined low-density of the supratentorial parenchyma is nonspecific although probably due to chronic microvascular ischemic disease in a patient of this age. Cervical spine CT Comparison: None Findings: No acute cervical spine fracture is identified. Vertebral body stature and AP alignment are unchanged, within normal limits. There is accentuation of the lordotic curvature. Atlanto-axial distance is within normal limits. There is appropriate alignment of lateral masses of C1 relative to C2. Occipital condylar-C1 relationship is maintained. There is multilevel mild degenerative disc disease greatest C3-4 and C4-5. There is mild spondylosis C3-4. There is no significant cervical spinal stenosis. There is multilevel facet degenerative change. There is atherosclerotic calcification of carotid arteries in the neck bilaterally. There is some chronic peripheral density with air bronchograms of the more anterior aspect of the right lung apex. Impression: 1. No acute cervical spine fracture is identified. Electronically signed by: Devyn Graham MD (05/15/2018 3:32 PM) [id number]
--- NOTE | 2018-05-15 15:41 | PHYS DOC ---
Past Medical History Past Medical History: Dementia, GERD, Other Additional Past Medical Histor: BACK PAIN Past Surgical History: Hysterectomy Alcohol Use: None Drug Use: None Adult General Chief Complaint Chief Complaint: BACK PAIN - NO INJURY HPI HPI Patient is a 78 year old female with history of dementia who presents today from assisted living facility to be evaluated for back pain. Patient is a very poor historian due to her dementia, she states she's been sitting on the couch and is not able to get up and ambulate. Patient also states her back pain is chronic. She is a poor historian. custodial staff informed the RN taking care of patient that this patient has been incontinent of urine which is not normal for her. Patient arrived in the ED with a diaper. She is moving all her extremities. She is pleasantly confused. PCP Dr. Merino Review of Systems Review of Systems Constitutional: Denies fever or chills [] Eyes: Denies change in visual acuity, redness, or eye pain [] HENT: Denies nasal congestion or sore throat [] Respiratory: Denies cough or shortness of breath [] Cardiovascular: No additional information not addressed in HPI [] GI: Denies abdominal pain, nausea, vomiting, bloody stools or diarrhea [] : Reports urinary incontinence. Denies dysuria or hematuria [] Musculoskeletal: Reports chronic low back pain, denies joint pain [] Integument: Denies rash or skin lesions [] Neurologic: Denies headache, focal weakness or sensory changes [] All other systems were reviewed and found to be within normal limits, except as documented in this note. Allergies Allergies Allergies Coded Allergies Type Severity Reaction Last Updated Verified No Known Drug Allergies 02/21/16 No Physical Exam Physical Exam Constitutional: Well developed, well nourished, no acute distress, non-toxic appearance. [] HENT: Normocephalic, atraumatic, bilateral external ears normal, oropharynx moist, no oral exudates, nose normal. [] Eyes: PERRLA, EOMI, conjunctiva normal, no discharge. [] Neck: Normal range of motion, no tenderness, supple, no stridor. [] Cardiovascular:Heart rate regular rhythm, no murmur [] Lungs & Thorax: Bilateral breath sounds clear to auscultation [] Abdomen: Bowel sounds normal, soft, no tenderness, no masses, no pulsatile masses. [] Skin: Warm, dry, no erythema, no rash. [] Back: Diffuse paraspinal muscle tenderness to bilateral lumbar spine including slight midline lumbar spine tenderness, no CVA tenderness. Negative bilateral straight leg raises. Rectal tone is normal. Extremities: No tenderness, no cyanosis, no clubbing, ROM intact, no edema. [] Neurologic: Alert and oriented X 2, normal motor function, normal sensory function, no focal deficits noted. [] Psychologic: Affect normal, judgement normal, mood normal. [] Current Patient Data Vital Signs Vital Signs Date Time Temp Pulse Resp B/P (MAP) Pulse Ox O2 Delivery O2 Flow Rate FiO2 05/15/18 13:47 99 18 153/71 (98) 98 Room Air 05/15/18 11:12 98.0 98.0 Lab Values Laboratory Tests Test 05/15/18 11:30 05/15/18 13:45 Urine Collection Type U cath Urine Color Yellow Urine Clarity Clear Urine pH 5.5 Urine Specific [place] 1.025 Urine Protein Negative mg/dL (NEG-TRACE) Urine Glucose (UA) Negative mg/dL (NEG) Urine Ketones (Stick) 40 mg/dL (NEG) Urine Blood Negative (NEG) Urine Nitrite Negative (NEG) Urine Bilirubin Small (NEG) Urine Urobilinogen Dipstick 0.2 mg/dL (0.2 mg/dL) Urine Leukocyte Esterase Negative (NEG) Urine RBC 0 /HPF (0-2) Urine WBC 0 /HPF (0-4) Urine Squamous Epithelial Cells Few /LPF Urine Amorphous Sediment Present /HPF Urine Bacteria 0 /HPF (0-FEW) Urine Hyaline Casts Moderate /HPF Urine Mucus Marked /LPF White Blood Count 7.8 x10^3/uL (4.0-11.0) Red Blood Count 4.56 x10^6/uL (3.50-5.40) Hemoglobin 14.5 g/dL (12.0-15.5) Hematocrit 42.4 % (36.0-47.0) Mean Corpuscular Volume 93 fL (79-100) Mean Corpuscular Hemoglobin 32 pg (25-35) Mean Corpuscular Hemoglobin Concent 34 g/dL (31-37) Red Cell Distribution Width 13.7 % (11.5-14.5) Platelet Count 244 x10^3/uL (140-400) Neutrophils (%) (Auto) 78 % (31-73) H Lymphocytes (%) (Auto) 14 % (24-48) L Monocytes (%) (Auto) 7 % (0-9) Eosinophils (%) (Auto) 0 % (0-3) Basophils (%) (Auto) 1 % (0-3) Neutrophils # (Auto) 6.1 x10^3uL (1.8-7.7) Lymphocytes # (Auto) 1.1 x10^3/uL (1.0-4.8) Monocytes # (Auto) 0.5 x10^3/uL (0.0-1.1) Eosinophils # (Auto) 0.0 x10^3/uL (0.0-0.7) Basophils # (Auto) 0.0 x10^3/uL (0.0-0.2) Sodium Level 141 mmol/L (136-145) Potassium Level 4.0 mmol/L (3.5-5.1) Chloride Level 101 mmol/L (98-107) Carbon Dioxide Level 26 mmol/L (21-32) Anion Gap 14 (6-14) Blood Urea Nitrogen 18 mg/dL (7-20) Creatinine 0.7 mg/dL (0.6-1.0) Estimated GFR (Cockcroft-Gault) 80.5 BUN/Creatinine Ratio 26 (6-20) H Glucose Level 89 mg/dL (70-99) Calcium Level 10.6 mg/dL (8.5-10.1) H Total Bilirubin 0.7 mg/dL (0.2-1.0) Aspartate Amino Transferase (AST) 19 U/L (15-37) Alanine Aminotransferase (ALT) 18 U/L (14-59) Alkaline Phosphatase 158 U/L (46-116) H Total Protein 8.1 g/dL (6.4-8.2) Albumin 4.2 g/dL (3.4-5.0) Albumin/Globulin Ratio 1.1 (1.0-1.7) Laboratory Tests 05/15/18 13:45 Laboratory Tests 05/15/18 13:45 EKG EKG [] Radiology/Procedures Radiology/Procedures []PROCEDURE: CT LUMBAR SPINE WO CONTRAST CT of the lumbar spine without contrast, 05/15/2018: HISTORY: Back pain Noncontrast scans were obtained with multiplanar reconstructions produced. There are moderate vertebral compression deformities at T12 and L1 which appear unchanged since an old thoracic MR study from 11/05/2016. There is a mild to moderate vertebral compression deformity at L2 which is new since the MR study. There is irregular sclerosis within the vertebral body. No associated central spinal stenosis or paraspinous mass is seen. There is a mild L4 vertebral compression fracture involving primarily the superior endplate. There is mild posterior superior marginal spurring which in conjunction with posterior ligamentous thickening due to facet joint arthropathy is causing only borderline narrowing of the central spinal canal at the L3-4 level. No other fracture or destructive bony lesion is seen. There are moderate degenerative changes involving the facet joints bilaterally in the lower lumbar spine. There are mild posterior disc bulges at L4-5 and L5-S1. There is mild inferior foraminal narrowing bilaterally at those levels. No disc herniation or high-grade central spinal stenosis is evident. Moderate aortoiliac calcific plaquing is present. Several small bilateral intrarenal calculi are noted. There are probable small parapelvic renal cysts on the left. IMPRESSION: 1. Old unchanged T12 and L1 vertebral compression fractures. 2. L2 vertebral compression fracture which is new since 11/05/2016. There is patchy sclerosis within that vertebral body which may be related to the healing process, however, the possibility of blastic metastatic disease should be considered. 3. Mild L4 vertebral compression fracture of indeterminate age. 4. Mild scattered degenerative changes as described above. 5. Small bilateral nonobstructing intrarenal calculi. PQRS Compliance Statement: One or more of the following individualized dose reduction techniques were utilized for this examination: 1. Automated exposure control 2. Adjustment of the mA and/or kV according to patient size 3. Use of iterative reconstruction technique Electronically signed by: Joao Garcia MD (05/15/2018 2:19 PM) [facility] DICTATED and SIGNED BY: JOAO GARCIA MD DATE: 05/15/18 1400 Course & Med Decision Making Course & Med Decision Making Pertinent Labs and Imaging studies reviewed. (See chart for details) This is a 6-year-old female patient presented to the ED today from assisted living with low back pain and urinary incontinence. Patient denies any known injury. Urine analysis is negative for infection, CBC CMP with no acute findings. CT of the lumbar spine was noted for an old T 12 and L1 vertebral compression fractures, acute L2 vertebral fracture,with questionable Blastic Metastatic Disease. Mild L4 Compression Fractures of Indeterminate Age. DJD of the Lumbar Spine. Nonobstructing Bilateral Intrarenal Calculi. Patient is able to move all her extremities in bed but not able to get up and be mobile.. Consulted with Dr. Hilliard who accepted patient for admission consulted with Kari BEE for neurosurgery who will f/u with patient. Patient also placed for routine consult placed for pain per Kari's request. Dragon Disclaimer Dragon Disclaimer This electronic medical record was generated, in whole or in part, using a voice recognition dictation system. Departure Departure Impression: Primary Impression: Compression fracture of L2 Disposition: 09 ADMITTED INPATIENT Condition: STABLE Referrals: GENEVIEVE MERINO MD (PCP) Problem Qualifiers Primary Impression: Compression fracture of L2 Encounter type: initial encounter Fracture type: closed Qualified Codes: S32.020A - Wedge compression fracture of second lumbar vertebra, initial encounter for closed fracture MIQUEL CANNON APRN May 15, 2018 15:41
[2018-05-15] MEDS ORDERED: ACETAMINOPHEN 325 MG TABLET. PO PRN (15:45)
[2018-05-15] MEDS ORDERED: ONDANSETRON PF 4 MG/2 ML VIAL. IV PRN (15:45)
[2018-05-15] MEDS ORDERED: MORPHINE SULFATE 2 MG/ML VIAL. IV PRN (15:45)
[2018-05-15 15:50] VITALS: BP 144/72
[2018-05-15] MEDS ORDERED: SENN1TAB9 PO (16:09)
[2018-05-15] MEDS ORDERED: PROC5TAB14 PO (16:09)
[2018-05-15] MEDS ORDERED: DONE5TAB7 PO (16:09)
[2018-05-15] MEDS ORDERED: CALC500T PO (16:09)
[2018-05-15] MEDS ORDERED: HYDR-2762 PO (16:09)
[2018-05-15] MEDS ORDERED: CHOL500050 PO (16:09)
[2018-05-15] MEDS ORDERED: ACET500T68 PO (16:09)
[2018-05-15] MEDS ORDERED: PNV1TABL25 PO (16:09)
[2018-05-15] MEDS ORDERED: CALC3.7S5 NS (16:09)
[2018-05-15] MEDS ORDERED: INFLUENZA VAX SCREEN BY RX. MC PRN (17:15)
[2018-05-15 19:00] VITALS: BP 122/69
--- NOTE | 2018-05-15 20:05 | PDOC1 ---
History and Physical Date of Admission Date of Admission DATE: 05/15/18 TIME: 20:04 Identification/Chief Complaint Chief Complaint ssen in er CC 78 year old female with history of dementia who presents today from assisted living facility to be evaluated for back pain., very poor historian due to her dementia, not able to get up and ambulate. Patient also states her back pain is chronic. [facility] staff informed the RN taking care of patient that this patient has been incontinent of urine Past Medical History Past Medical History Past Medical History Past Medical History: Dementia, GERD, Other Additional Past Medical Histor: BACK PAIN Past Surgical History: Hysterectomy Alcohol Use: None Drug Use: None FAMILY HX HTN Cardiovascular: HTN, Hyperlipidemia Pulmonary: No pertinent hx CENTRAL NERVOUS SYSTEM: Other GI: No pertinent hx Heme/Onc: No pertinent hx Hepatobiliary: No pertinent hx Psych: No pertinent hx Musculoskeletal: low back pain Rheumatologic: No pertinent hx Infectious disease: No pertinent hx Renal/: No pertinent hx Endocrine: No pertinent hx Past Surgical History Past Surgical History: Hysterectomy Family History Family History: No Significant, Hypertension Social History Smoke: No ALCOHOL: none Drugs: None Current Medications Current Medications Current Medications Ondansetron HCl (Zofran) 4 mg PRN Q8HRS PRN IV NAUSEA/VOMITING; Start 05/15/18 at 15:45; Stop 05/16/18 at 15:44 Morphine Sulfate (Morphine Sulfate) 2 mg PRN Q2HR PRN IV PAIN; Start 05/15/18 at 15:45; Stop 05/16/18 at 15:44 Acetaminophen (Tylenol) 650 mg PRN Q4HRS PRN PO FEVER; Start 05/15/18 at 15:45 ; Stop 05/16/18 at 15:44 Info (Do NOT chart on this placeholder) 1 each PRN 1X PRN MC SEE COMMENTS; Start 05/15/18 at 17:15; Status UNV Influenza Virus Vaccine (Afluria Trivalent [id number] Syringe) 0.5 ml ONCE ONCE VAX IM Last administered on 05/15/18at 17:44; Start 05/15/18 at 18:00; Stop at 18:01; Status DC Lidocaine (Lidoderm) 1 patch QHS TD ; Start 05/15/18 at 21:00 Miscellaneous (Lidoderm Patch Removal) 1 ea DAILY MC ; Start 05/16/18 at 09:00 Active Scripts Active Pantoprazole Sodium 40 Mg Tablet. 40 Mg PO DAILYAC 30 Days Reported Acetaminophen 500 Mg Tablet 1,000 Mg PO PRN Q6HRS PRN Pain reported <7/10 Do not exceed 3gm/day acetaminophen from all sources. Vitamin D3 (Cholecalciferol (Vitamin D3)) 50,000 Unit Capsule 50,000 Unit PO WEEKLY Saturday Tablet (Pnv Cmb#95/Ferrous Fumarate/Fa) 1 Each Tablet 1 Tab PO DAILY Donepezil Hcl 5 Mg Tablet 5 Mg PO HS Calcitonin-Llano (Calcitonin,Llano,Synthetic) 3.7 Ml [place].pump 3.7 Ml NS DAILY Senexon-S Tablet (Sennosides/Docusate Sodium) 1 Each Tablet 1 Each PO PRN DAILY PRN Prochlorperazine Maleate 10 Mg Tablet 1 Tab PO PRN Q4HRS PRN Hydrocodone-Apap 7.5-325 (Hydrocodone Bit/Acetaminophen) 1 Each Tablet 1 Tab PO PRN Q6HRS PRN Calcium Carbonate 500 Mg Tablet 500 Mg PO PRN Q6HRS PRN Aspir 81 (Aspirin) 81 Mg Tablet. 81 Mg PO DAILY08 Allergies Allergies: Coded Allergies: No Known Drug Allergies (Unverified , 02/21/16) Vitals Vitals Vital Signs Date Time Temp Pulse Resp B/P (MAP) Pulse Ox O2 Delivery O2 Flow Rate FiO2 05/15/18 16:00 Room Air 05/15/18 15:50 97.3 68 16 144/72 (96) 98 97.3 Labs Labs Laboratory Tests Test 05/15/18 11:30 05/15/18 13:45 Urine Collection Type U cath Urine Color Yellow Urine Clarity Clear Urine pH 5.5 Urine Specific [place] 1.025 Urine Protein Negative mg/dL (NEG-TRACE) Urine Glucose (UA) Negative mg/dL (NEG) Urine Ketones (Stick) 40 mg/dL (NEG) Urine Blood Negative (NEG) Urine Nitrite Negative (NEG) Urine Bilirubin Small (NEG) Urine Urobilinogen Dipstick 0.2 mg/dL (0.2 mg/dL) Urine Leukocyte Esterase Negative (NEG) Urine RBC 0 /HPF (0-2) Urine WBC 0 /HPF (0-4) Urine Squamous Epithelial Cells Few /LPF Urine Amorphous Sediment Present /HPF Urine Bacteria 0 /HPF (0-FEW) Urine Hyaline Casts Moderate /HPF Urine Mucus Marked /LPF White Blood Count 7.8 x10^3/uL (4.0-11.0) Red Blood Count 4.56 x10^6/uL (3.50-5.40) Hemoglobin 14.5 g/dL (12.0-15.5) Hematocrit 42.4 % (36.0-47.0) Mean Corpuscular Volume 93 fL (79-100) Mean Corpuscular Hemoglobin 32 pg (25-35) Mean Corpuscular Hemoglobin Concent 34 g/dL (31-37) Red Cell Distribution Width 13.7 % (11.5-14.5) Platelet Count 244 x10^3/uL (140-400) Neutrophils (%) (Auto) 78 % (31-73) Lymphocytes (%) (Auto) 14 % (24-48) Monocytes (%) (Auto) 7 % (0-9) Eosinophils (%) (Auto) 0 % (0-3) Basophils (%) (Auto) 1 % (0-3) Neutrophils # (Auto) 6.1 x10^3uL (1.8-7.7) Lymphocytes # (Auto) 1.1 x10^3/uL (1.0-4.8) Monocytes # (Auto) 0.5 x10^3/uL (0.0-1.1) Eosinophils # (Auto) 0.0 x10^3/uL (0.0-0.7) Basophils # (Auto) 0.0 x10^3/uL (0.0-0.2) Sodium Level 141 mmol/L (136-145) Potassium Level 4.0 mmol/L (3.5-5.1) Chloride Level 101 mmol/L (98-107) Carbon Dioxide Level 26 mmol/L (21-32) Anion Gap 14 (6-14) Blood Urea Nitrogen 18 mg/dL (7-20) Creatinine 0.7 mg/dL (0.6-1.0) Estimated GFR (Cockcroft-Gault) 80.5 BUN/Creatinine Ratio 26 (6-20) Glucose Level 89 mg/dL (70-99) Calcium Level 10.6 mg/dL (8.5-10.1) Total Bilirubin 0.7 mg/dL (0.2-1.0) Aspartate Amino Transf (AST/SGOT) 19 U/L (15-37) Alanine Aminotransferase (ALT/SGPT) 18 U/L (14-59) Alkaline Phosphatase 158 U/L (46-116) Total Protein 8.1 g/dL (6.4-8.2) Albumin 4.2 g/dL (3.4-5.0) Albumin/Globulin Ratio 1.1 (1.0-1.7) Laboratory Tests Test 05/15/18 11:30 05/15/18 13:45 Urine Collection Type U cath Urine Color Yellow Urine Clarity Clear Urine pH 5.5 Urine Specific [place] 1.025 Urine Protein Negative mg/dL (NEG-TRACE) Urine Glucose (UA) Negative mg/dL (NEG) Urine Ketones (Stick) 40 mg/dL (NEG) Urine Blood Negative (NEG) Urine Nitrite Negative (NEG) Urine Bilirubin Small (NEG) Urine Urobilinogen Dipstick 0.2 mg/dL (0.2 mg/dL) Urine Leukocyte Esterase Negative (NEG) Urine RBC 0 /HPF (0-2) Urine WBC 0 /HPF (0-4) Urine Squamous Epithelial Cells Few /LPF Urine Amorphous Sediment Present /HPF Urine Bacteria 0 /HPF (0-FEW) Urine Hyaline Casts Moderate /HPF Urine Mucus Marked /LPF White Blood Count 7.8 x10^3/uL (4.0-11.0) Red Blood Count 4.56 x10^6/uL (3.50-5.40) Hemoglobin 14.5 g/dL (12.0-15.5) Hematocrit 42.4 % (36.0-47.0) Mean Corpuscular Volume 93 fL (79-100) Mean Corpuscular Hemoglobin 32 pg (25-35) Mean Corpuscular Hemoglobin Concent 34 g/dL (31-37) Red Cell Distribution Width 13.7 % (11.5-14.5) Platelet Count 244 x10^3/uL (140-400) Neutrophils (%) (Auto) 78 % (31-73) Lymphocytes (%) (Auto) 14 % (24-48) Monocytes (%) (Auto) 7 % (0-9) Eosinophils (%) (Auto) 0 % (0-3) Basophils (%) (Auto) 1 % (0-3) Neutrophils # (Auto) 6.1 x10^3uL (1.8-7.7) Lymphocytes # (Auto) 1.1 x10^3/uL (1.0-4.8) Monocytes # (Auto) 0.5 x10^3/uL (0.0-1.1) Eosinophils # (Auto) 0.0 x10^3/uL (0.0-0.7) Basophils # (Auto) 0.0 x10^3/uL (0.0-0.2) Sodium Level 141 mmol/L (136-145) Potassium Level 4.0 mmol/L (3.5-5.1) Chloride Level 101 mmol/L (98-107) Carbon Dioxide Level 26 mmol/L (21-32) Anion Gap 14 (6-14) Blood Urea Nitrogen 18 mg/dL (7-20) Creatinine 0.7 mg/dL (0.6-1.0) Estimated GFR (Cockcroft-Gault) 80.5 BUN/Creatinine Ratio 26 (6-20) Glucose Level 89 mg/dL (70-99) Calcium Level 10.6 mg/dL (8.5-10.1) Total Bilirubin 0.7 mg/dL (0.2-1.0) Aspartate Amino Transf (AST/SGOT) 19 U/L (15-37) Alanine Aminotransferase (ALT/SGPT) 18 U/L (14-59) Alkaline Phosphatase 158 U/L (46-116) Total Protein 8.1 g/dL (6.4-8.2) Albumin 4.2 g/dL (3.4-5.0) Albumin/Globulin Ratio 1.1 (1.0-1.7) Images Images CT of the lumbar spine without contrast, 05/15/2018: HISTORY: Back pain Noncontrast scans were obtained with multiplanar reconstructions produced. There are moderate vertebral compression deformities at T12 and L1 which appear unchanged since an old thoracic MR study from 11/05/2016. There is a mild to moderate vertebral compression deformity at L2 which is new since the MR study. There is irregular sclerosis within the vertebral body. No associated central spinal stenosis or paraspinous mass is seen. There is a mild L4 vertebral compression fracture involving primarily the superior endplate. There is mild posterior superior marginal spurring which in conjunction with posterior ligamentous thickening due to facet joint arthropathy is causing only borderline narrowing of the central spinal canal at the L3-4 level. No other fracture or destructive bony lesion is seen. There are moderate degenerative changes involving the facet joints bilaterally in the lower lumbar spine. There are mild posterior disc bulges at L4-5 and L5-S1. There is mild inferior foraminal narrowing bilaterally at those levels. No disc herniation or high-grade central spinal stenosis is evident. Moderate aortoiliac calcific plaquing is present. Several small bilateral intrarenal calculi are noted. There are probable small parapelvic renal cysts on the left. IMPRESSION: 1. Old unchanged T12 and L1 vertebral compression fractures. 2. L2 vertebral compression fracture which is new since 11/05/2016. There is patchy sclerosis within that vertebral body which may be related to the healing process, however, the possibility of blastic metastatic disease should be considered. 3. Mild L4 vertebral compression fracture of indeterminate age. 4. Mild scattered degenerative changes as described above. 5. Small bilateral nonobstructing intrarenal calculi. PQRS Compliance Statement: VTE Prophylaxis Ordered VTE Prophylaxis Devices: Yes VTE Pharmacological Prophylaxi: Yes Assessment/Plan Assessment/Plan 1. Old T12 and L1 vertebral compression fractures. 2. L2 vertebral compression fracture which is new since 11/05/2016. There is patchy sclerosis within that vertebral body which may be related to the healing process, however, the possibility of blastic metastatic disease should be considered. 3. Mild L4 vertebral compression fracture of indeterminate age. 4. GAIT instability 5. dementia 6. intractable back pain plan consult dr xiong pain control iv fentanyl 25mcg q 4 hrs prn bed alarm cont home meds ADALBERTO LAGUNAS MD May 15, 2018 20:05
[2018-05-15] MEDS: LIDOCAINE (700MG/PATCH) PATCH. TD SCH (20:44)
--- NOTE | 2018-05-15 21:18 | CONS ---
DATE OF CONSULTATION: 05/15/2018 ATTENDING PHYSICIAN: Dr. Hilliard. The patient was seen at the request of Dr. Hilliard for rehab evaluation. HISTORY OF PRESENT ILLNESS: This is an 78-year-old female with known dementia, admitted as per transfer from assisted living facility where she has been living with back pain. She is a poor historian. The patient had chronic back pain. She denies any radiation of pain to the extremities or any tingling or numbness sensation in the extremities or any trouble with her bowel control, but she was found with incontinence of urine in the Emergency Room. The patient had CT scan of lumbar spine and brain and cervical spine and x-ray of lumbar spine, which revealed old unchanged T12 and L1 vertebral body compression fractures, L2 vertebral compression fracture which is new since 11/05/2016. There is patchy sclerosis within the vertebral body, which may be related to the healing process, however, the possibility of blastic metastatic disease should be considered, mild L4 vertebral body compression fracture of undetermined age, mild scattered degenerative changes and small bilateral nonobstructing intrarenal calculi. CT scan of cervical spine revealed no acute lesion. It revealed some degenerative changes. CT scan of the brain revealed mild generalized supratentorial atrophy and scattered ill-defined low density of supratentorial parenchyma, is nonspecific although probably due to chronic microvascular ischemic disease. PHYSICAL EXAMINATION: Today revealed an elderly female. She is alert, oriented to place and person, follows commands appropriately, moves all 4 extremities voluntarily where she had 4+/5 grade muscle strength. Deep tendon reflexes are 1 to 2+ and symmetrical with absent ankle jerks and she had equal perception of touch and pinprick sensation bilaterally. She had crepitus on range of motion of her knee joints without any obvious knee joint effusion and she had minimal tenderness to palpation over lumbar spine area. Straight leg raising test is negative bilaterally. She is independent with rolling from side to side. I have not tested her transfers or ambulation skills at present time. ASSESSMENT: 1. An elderly female with chronic lower back pain with multiple lumbar vertebral body compression fractures, L2 being somewhat relatively new. 2. Degenerative joint disease of both knees. 3. Dementia. 4. Clinical evidence of peripheral neuropathy. RECOMMENDATION: To get her up as tolerated. Dr. Hilliard, I appreciate asking me to participate in the care of this interesting patient. I will be glad to follow her with you as needed for her rehabilitation. JAIME GANNON MD DR: JORDIN/lion JOB#: [id number] / [id number]
[2018-05-15] MEDS ORDERED: SENNOSIDES/DOCUSATE 8.6/50MG TABLET. PO PRN (21:45)
[2018-05-15] MEDS ORDERED: PROCHLORPERAZINE 5 MG TABLET. PO PRN (21:45)
[2018-05-15] MEDS ORDERED: CALCIUM CARBONATE 500 MG TABLET PO PRN (21:45)
[2018-05-15] MEDS ORDERED: ACETAMINOPHEN 500 MG TABLET PO PRN (21:45)
[2018-05-15] MEDS ORDERED: fentaNYL PF VIAL 100 MCG/2 ML VIAL IV PRN (21:45)
[2018-05-15 23:00] VITALS: BP 125/67
[2018-05-16 03:00] VITALS: BP 126/60
[2018-05-16 04:54] LABS: BASO # 0.1 x10^3/uL (0.0-0.2); BASO % 1 % (0-3); EOS # 0.1 x10^3/uL (0.0-0.7); EOS % 2 % (0-3); HEMOGLOBIN 13.1 g/dL (12.0-15.5); LYMPH # 1.4 x10^3/uL (1.0-4.8); LYMPH % 24 % (24-48); MEAN CORPUSCULAR HEMOGLOBIN 32 pg (25-35); MEAN CORPUSCULAR HGB CONC 34 g/dL (31-37); MEAN CORPUSCULAR VOLUME 92 fL (79-100); MONO # 0.5 x10^3/uL (0.0-1.1); MONO % 9 % (0-9); NEUT # 3.8 x10^3uL (1.8-7.7); NEUT % 65 % (31-73); PLATELET COUNT 223 x10^3/uL (140-400); RED BLOOD COUNT 4.11 x10^6/uL (3.50-5.40); RED CELL DISTRIBUTION WIDTH 13.9 % (11.5-14.5); WHITE BLOOD COUNT 5.8 x10^3/uL (4.0-11.0)
[2018-05-16 06:05] LABS: CREATININE 0.8 mg/dL (0.6-1.0); POTASSIUM 3.6 mmol/L (3.5-5.1)
[2018-05-16 07:00] VITALS: BP 115/63
[2018-05-16] MEDS: PATCH REMOVAL. MC SCH (09:00)
[2018-05-16] MEDS: ASPIRIN ENTERIC COATED 81 MG TABLET.DR. PO SCH (09:01)
[2018-05-16] MEDS: PANTOPRAZOLE 40 MG TABLET.DR. PO SCH (09:01)
[2018-05-16] MEDS: CALCITONIN,SALMON NASAL 200 UNITS/SPRAY 3.7ML BOTTLE. NS SCH (10:21)
[2018-05-16 11:00] VITALS: BP 120/68
--- NOTE | 2018-05-16 13:07 | PDOC ---
PROGRESS NOTES Subjective Subjective She c/o right shoulder blade area pain this AM. Objective Objective Vital Signs Date Time Temp Pulse Resp B/P (MAP) Pulse Ox O2 Delivery O2 Flow Rate FiO2 05/16/18 11:00 98.2 90 18 120/68 (85) 98 Room Air 98.2 Intake and Output 05/16/18 07:00 Intake Total 0 ml Output Total 0 ml Balance 0 ml Intake Oral 0 ml Output Urine Total 0 ml # Voids 2 Physical Exam Physical Exam She is awake supine in bed and she had tenderness to palpation over right posterior shoulder girdle muscles.She does not like to get up much. Plan Plan of Care To try physical modalities for shoulder and low back and to assisted living facility when medically stable. Comment Review of Relevant I have reviewed the following items bubba (where applicable) has been applied. Labs Laboratory Tests Test 05/15/18 11:30 05/15/18 13:45 05/16/18 04:30 Urine Collection Type U cath Urine Color Yellow Urine Clarity Clear Urine pH 5.5 Urine Specific [place] 1.025 Urine Protein Negative mg/dL (NEG-TRACE) Urine Glucose (UA) Negative mg/dL (NEG) Urine Ketones (Stick) 40 mg/dL (NEG) Urine Blood Negative (NEG) Urine Nitrite Negative (NEG) Urine Bilirubin Small (NEG) Urine Urobilinogen Dipstick 0.2 mg/dL (0.2 mg/dL) Urine Leukocyte Esterase Negative (NEG) Urine RBC 0 /HPF (0-2) Urine WBC 0 /HPF (0-4) Urine Squamous Epithelial Cells Few /LPF Urine Amorphous Sediment Present /HPF Urine Bacteria 0 /HPF (0-FEW) Urine Hyaline Casts Moderate /HPF Urine Mucus Marked /LPF White Blood Count 7.8 x10^3/uL (4.0-11.0) 5.8 x10^3/uL (4.0-11.0) Red Blood Count 4.56 x10^6/uL (3.50-5.40) 4.11 x10^6/uL (3.50-5.40) Hemoglobin 14.5 g/dL (12.0-15.5) 13.1 g/dL (12.0-15.5) Hematocrit 42.4 % (36.0-47.0) 38.0 % (36.0-47.0) Mean Corpuscular Volume 93 fL (79-100) 92 fL (79-100) Mean Corpuscular Hemoglobin 32 pg (25-35) 32 pg (25-35) Mean Corpuscular Hemoglobin Concent 34 g/dL (31-37) 34 g/dL (31-37) Red Cell Distribution Width 13.7 % (11.5-14.5) 13.9 % (11.5-14.5) Platelet Count 244 x10^3/uL (140-400) 223 x10^3/uL (140-400) Neutrophils (%) (Auto) 78 % (31-73) 65 % (31-73) Lymphocytes (%) (Auto) 14 % (24-48) 24 % (24-48) Monocytes (%) (Auto) 7 % (0-9) 9 % (0-9) Eosinophils (%) (Auto) 0 % (0-3) 2 % (0-3) Basophils (%) (Auto) 1 % (0-3) 1 % (0-3) Neutrophils # (Auto) 6.1 x10^3uL (1.8-7.7) 3.8 x10^3uL (1.8-7.7) Lymphocytes # (Auto) 1.1 x10^3/uL (1.0-4.8) 1.4 x10^3/uL (1.0-4.8) Monocytes # (Auto) 0.5 x10^3/uL (0.0-1.1) 0.5 x10^3/uL (0.0-1.1) Eosinophils # (Auto) 0.0 x10^3/uL (0.0-0.7) 0.1 x10^3/uL (0.0-0.7) Basophils # (Auto) 0.0 x10^3/uL (0.0-0.2) 0.1 x10^3/uL (0.0-0.2) Sodium Level 141 mmol/L (136-145) 142 mmol/L (136-145) Potassium Level 4.0 mmol/L (3.5-5.1) 3.6 mmol/L (3.5-5.1) Chloride Level 101 mmol/L (98-107) 103 mmol/L (98-107) Carbon Dioxide Level 26 mmol/L (21-32) 24 mmol/L (21-32) Anion Gap 14 (6-14) 15 (6-14) Blood Urea Nitrogen 18 mg/dL (7-20) 18 mg/dL (7-20) Creatinine 0.7 mg/dL (0.6-1.0) 0.8 mg/dL (0.6-1.0) Estimated GFR (Cockcroft-Gault) 80.5 69.0 BUN/Creatinine Ratio 26 (6-20) Glucose Level 89 mg/dL (70-99) 73 mg/dL (70-99) Calcium Level 10.6 mg/dL (8.5-10.1) 10.0 mg/dL (8.5-10.1) Total Bilirubin 0.7 mg/dL (0.2-1.0) Aspartate Amino Transf (AST/SGOT) 19 U/L (15-37) Alanine Aminotransferase (ALT/SGPT) 18 U/L (14-59) Alkaline Phosphatase 158 U/L (46-116) Total Protein 8.1 g/dL (6.4-8.2) Albumin 4.2 g/dL (3.4-5.0) Albumin/Globulin Ratio 1.1 (1.0-1.7) Laboratory Tests Test 05/15/18 13:45 05/16/18 04:30 White Blood Count 7.8 x10^3/uL (4.0-11.0) 5.8 x10^3/uL (4.0-11.0) Red Blood Count 4.56 x10^6/uL (3.50-5.40) 4.11 x10^6/uL (3.50-5.40) Hemoglobin 14.5 g/dL (12.0-15.5) 13.1 g/dL (12.0-15.5) Hematocrit 42.4 % (36.0-47.0) 38.0 % (36.0-47.0) Mean Corpuscular Volume 93 fL (79-100) 92 fL (79-100) Mean Corpuscular Hemoglobin 32 pg (25-35) 32 pg (25-35) Mean Corpuscular Hemoglobin Concent 34 g/dL (31-37) 34 g/dL (31-37) Red Cell Distribution Width 13.7 % (11.5-14.5) 13.9 % (11.5-14.5) Platelet Count 244 x10^3/uL (140-400) 223 x10^3/uL (140-400) Neutrophils (%) (Auto) 78 % (31-73) 65 % (31-73) Lymphocytes (%) (Auto) 14 % (24-48) 24 % (24-48) Monocytes (%) (Auto) 7 % (0-9) 9 % (0-9) Eosinophils (%) (Auto) 0 % (0-3) 2 % (0-3) Basophils (%) (Auto) 1 % (0-3) 1 % (0-3) Neutrophils # (Auto) 6.1 x10^3uL (1.8-7.7) 3.8 x10^3uL (1.8-7.7) Lymphocytes # (Auto) 1.1 x10^3/uL (1.0-4.8) 1.4 x10^3/uL (1.0-4.8) Monocytes # (Auto) 0.5 x10^3/uL (0.0-1.1) 0.5 x10^3/uL (0.0-1.1) Eosinophils # (Auto) 0.0 x10^3/uL (0.0-0.7) 0.1 x10^3/uL (0.0-0.7) Basophils # (Auto) 0.0 x10^3/uL (0.0-0.2) 0.1 x10^3/uL (0.0-0.2) Sodium Level 141 mmol/L (136-145) 142 mmol/L (136-145) Potassium Level 4.0 mmol/L (3.5-5.1) 3.6 mmol/L (3.5-5.1) Chloride Level 101 mmol/L (98-107) 103 mmol/L (98-107) Carbon Dioxide Level 26 mmol/L (21-32) 24 mmol/L (21-32) Anion Gap 14 (6-14) 15 (6-14) Blood Urea Nitrogen 18 mg/dL (7-20) 18 mg/dL (7-20) Creatinine 0.7 mg/dL (0.6-1.0) 0.8 mg/dL (0.6-1.0) Estimated GFR (Cockcroft-Gault) 80.5 69.0 BUN/Creatinine Ratio 26 (6-20) Glucose Level 89 mg/dL (70-99) 73 mg/dL (70-99) Calcium Level 10.6 mg/dL (8.5-10.1) 10.0 mg/dL (8.5-10.1) Total Bilirubin 0.7 mg/dL (0.2-1.0) Aspartate Amino Transf (AST/SGOT) 19 U/L (15-37) Alanine Aminotransferase (ALT/SGPT) 18 U/L (14-59) Alkaline Phosphatase 158 U/L (46-116) Total Protein 8.1 g/dL (6.4-8.2) Albumin 4.2 g/dL (3.4-5.0) Albumin/Globulin Ratio 1.1 (1.0-1.7) Medications Current Medications Ondansetron HCl (Zofran) 4 mg PRN Q8HRS PRN IV NAUSEA/VOMITING; Start 05/15/18 at 15:45; Stop 05/16/18 at 11:16; Status DC Morphine Sulfate (Morphine Sulfate) 2 mg PRN Q2HR PRN IV PAIN; Start 05/15/18 at 15:45; Stop 05/16/18 at 11:17; Status DC Acetaminophen (Tylenol) 650 mg PRN Q4HRS PRN PO FEVER Last administered on 05/15at 20:44; Start 05/15/18 at 15:45; Stop 05/16/18 at 11:17; Status DC Info (Do NOT chart on this placeholder) 1 each PRN 1X PRN MC SEE COMMENTS; Start 05/15/18 at 17:15; Status UNV Influenza Virus Vaccine (Afluria Trivalent [id number] Syringe) 0.5 ml ONCE ONCE VAX IM Last administered on 05/15/18at 17:44; Start 05/15/18 at 18:00; Stop at 18:01; Status DC Lidocaine (Lidoderm) 1 patch QHS TD Last administered on 05/15/18at 20:44; Start 05/15/18 at 21:00 Miscellaneous (Lidoderm Patch Removal) 1 ea DAILY MC Last administered on at 09:00; Start 05/16/18 at 09:00 Acetaminophen (Tylenol) 1,000 mg PRN Q6HRS PRN PO PAIN; Start 05/15/18 at 21:45 Aspirin (Ecotrin) 81 mg DAILY08 PO Last administered on 05/16/18at 09:01; Start 05/16/18 at 08:00 Calcitonin [place] (Miacalcin Nasal) 1 spray DAILY NS Last administered on at 10:21; Start 05/16/18 at 09:00 Calcium Carbonate/ Glycine (Oscal) 500 mg PRN Q6HRS PRN PO INDIGESTION; Start 05/15/18 at 21:45 Pantoprazole Sodium (Protonix) 40 mg DAILYAC PO Last administered on 05/16/18at 09:01; Start 05/16/18 at 07:30 Prochlorperazine Maleate (Compazine) 10 mg PRN Q4HRS PRN PO NAUSEA/VOMITING; Start 05/15/18 at 21:45 Senna/Docusate Sodium (Senna Plus) 1 tab PRN DAILY PRN PO CONSTIPATION; Start 05/15/18 at 21:45 Donepezil HCl (Aricept) 5 mg QHS PO ; Start 05/16/18 at 21:00 Fentanyl Citrate (Fentanyl 2ml Vial) 25 mcg PRN Q4HRS PRN IV PAIN; Start at 21:45 Active Scripts Active Pantoprazole Sodium 40 Mg Tablet.dr 40 Mg PO DAILYAC 30 Days Reported Acetaminophen 500 Mg Tablet 1,000 Mg PO PRN Q6HRS PRN Pain reported <7/10 Do not exceed 3gm/day acetaminophen from all sources. Vitamin D3 (Cholecalciferol (Vitamin D3)) 50,000 Unit Capsule 50,000 Unit PO WEEKLY Saturday Tablet (Pnv Cmb#95/Ferrous Fumarate/Fa) 1 Each Tablet 1 Tab PO DAILY Donepezil Hcl 5 Mg Tablet 5 Mg PO HS Calcitonin-[place] (Calcitonin,[place],Synthetic) 3.7 Ml [place].pump 3.7 Ml NS DAILY Senexon-S Tablet (Sennosides/Docusate Sodium) 1 Each Tablet 1 Each PO PRN DAILY PRN Prochlorperazine Maleate 10 Mg Tablet 1 Tab PO PRN Q4HRS PRN Hydrocodone-Apap 7.5-325 (Hydrocodone Bit/Acetaminophen) 1 Each Tablet 1 Tab PO PRN Q6HRS PRN Calcium Carbonate 500 Mg Tablet 500 Mg PO PRN Q6HRS PRN Aspir 81 (Aspirin) 81 Mg Tablet.dr 81 Mg PO DAILY08 Vitals/I & O Vital Sign - Last 24 Hours 05/15/18 05/15/18 05/15/18 05/15/18 13:47 15:50 16:00 19:00 Temp 97.3 98.4 97.3 98.4 Pulse 99 68 74 Resp 18 B/P (MAP) 153/71 (98) 144/72 (96) 122/69 (86) Pulse Ox 98 98 93 O2 Delivery Room Air Room Air Room Air Room Air 05/15/18 05/15/18 05/16/18 05/16/18 20:00 23:00 03:00 07:00 Temp 97.4 97.8 98.2 97.4 97.8 98.2 Pulse 74 78 70 Resp 18 18 18 B/P (MAP) 125/67 (86) 126/60 (82) 115/63 (80) Pulse Ox 93 95 97 O2 Delivery Room Air Room Air Room Air Room Air 05/16/18 11:00 Temp 98.2 98.2 Pulse 90 Resp 18 B/P (MAP) 120/68 (85) Pulse Ox 98 O2 Delivery Room Air Intake and Output 05/15/18 05/15/18 05/16/18 15:00 23:00 07:00 Intake Total 0 ml Output Total 0 ml Balance 0 ml 0 ml Nutrition Consultation Dietary Evaluation: Recommendations by RD: Increase Calorie Intake, Protein supplementation Comments: ensure enlive bid Expected Outcomes/Goals: to meet > 75% est nutr needs Malnutrition Findings: Body Fat Depletion (Non Severe: Mod to Severe Weight Status: Underweight JAIME GANNON MD May 16, 2018 13:07
--- NOTE | 2018-05-16 14:53 | PDOC ---
PROGRESS NOTES Chief Complaint Chief Complaint severe lower back pain with new L2 FX Old T12 and L1 vertebral compression fractures. Mild L4 vertebral compression fracture of indeterminate age. . GAIT instability MILD dementia PLAN: fu with dr. Smith, dr. Hernandez if pain cont , need kypho? pain control cont some home meds dvt ppx PTOT History of Present Illness History of Present Illness ROS: no fever, chills, sob or chest pain CONT LOWER back PAIN, can walk Vitals Vitals Vital Signs Date Time Temp Pulse Resp B/P (MAP) Pulse Ox O2 Delivery O2 Flow Rate FiO2 05/16/18 11:00 98.2 90 18 120/68 (85) 98 Room Air 98.2 Physical Exam General: Alert, Oriented X3, Cooperative Heart: Regular rate, Normal S1, Normal S2 Lungs: Clear Abdomen: Normal bowel sounds, Soft Extremities: No clubbing, No cyanosis Skin: No rashes Labs LABS Laboratory Tests Test 05/16/18 04:30 White Blood Count 5.8 x10^3/uL (4.0-11.0) Red Blood Count 4.11 x10^6/uL (3.50-5.40) Hemoglobin 13.1 g/dL (12.0-15.5) Hematocrit 38.0 % (36.0-47.0) Mean Corpuscular Volume 92 fL (79-100) Mean Corpuscular Hemoglobin 32 pg (25-35) Mean Corpuscular Hemoglobin Concent 34 g/dL (31-37) Red Cell Distribution Width 13.9 % (11.5-14.5) Platelet Count 223 x10^3/uL (140-400) Neutrophils (%) (Auto) 65 % (31-73) Lymphocytes (%) (Auto) 24 % (24-48) Monocytes (%) (Auto) 9 % (0-9) Eosinophils (%) (Auto) 2 % (0-3) Basophils (%) (Auto) 1 % (0-3) Neutrophils # (Auto) 3.8 x10^3uL (1.8-7.7) Lymphocytes # (Auto) 1.4 x10^3/uL (1.0-4.8) Monocytes # (Auto) 0.5 x10^3/uL (0.0-1.1) Eosinophils # (Auto) 0.1 x10^3/uL (0.0-0.7) Basophils # (Auto) 0.1 x10^3/uL (0.0-0.2) Sodium Level 142 mmol/L (136-145) Potassium Level 3.6 mmol/L (3.5-5.1) Chloride Level 103 mmol/L (98-107) Carbon Dioxide Level 24 mmol/L (21-32) Anion Gap 15 (6-14) Blood Urea Nitrogen 18 mg/dL (7-20) Creatinine 0.8 mg/dL (0.6-1.0) Estimated GFR (Cockcroft-Gault) 69.0 Glucose Level 73 mg/dL (70-99) Calcium Level 10.0 mg/dL (8.5-10.1) Comment Review of Relevant I have reviewed the following items bubba (where applicable) has been applied. Labs Laboratory Tests Test 05/15/18 11:30 05/15/18 13:45 05/16/18 04:30 Urine Collection Type U cath Urine Color Yellow Urine Clarity Clear Urine pH 5.5 Urine Specific [place] 1.025 Urine Protein Negative mg/dL (NEG-TRACE) Urine Glucose (UA) Negative mg/dL (NEG) Urine Ketones (Stick) 40 mg/dL (NEG) Urine Blood Negative (NEG) Urine Nitrite Negative (NEG) Urine Bilirubin Small (NEG) Urine Urobilinogen Dipstick 0.2 mg/dL (0.2 mg/dL) Urine Leukocyte Esterase Negative (NEG) Urine RBC 0 /HPF (0-2) Urine WBC 0 /HPF (0-4) Urine Squamous Epithelial Cells Few /LPF Urine Amorphous Sediment Present /HPF Urine Bacteria 0 /HPF (0-FEW) Urine Hyaline Casts Moderate /HPF Urine Mucus Marked /LPF White Blood Count 7.8 x10^3/uL (4.0-11.0) 5.8 x10^3/uL (4.0-11.0) Red Blood Count 4.56 x10^6/uL (3.50-5.40) 4.11 x10^6/uL (3.50-5.40) Hemoglobin 14.5 g/dL (12.0-15.5) 13.1 g/dL (12.0-15.5) Hematocrit 42.4 % (36.0-47.0) 38.0 % (36.0-47.0) Mean Corpuscular Volume 93 fL (79-100) 92 fL (79-100) Mean Corpuscular Hemoglobin 32 pg (25-35) 32 pg (25-35) Mean Corpuscular Hemoglobin Concent 34 g/dL (31-37) 34 g/dL (31-37) Red Cell Distribution Width 13.7 % (11.5-14.5) 13.9 % (11.5-14.5) Platelet Count 244 x10^3/uL (140-400) 223 x10^3/uL (140-400) Neutrophils (%) (Auto) 78 % (31-73) 65 % (31-73) Lymphocytes (%) (Auto) 14 % (24-48) 24 % (24-48) Monocytes (%) (Auto) 7 % (0-9) 9 % (0-9) Eosinophils (%) (Auto) 0 % (0-3) 2 % (0-3) Basophils (%) (Auto) 1 % (0-3) 1 % (0-3) Neutrophils # (Auto) 6.1 x10^3uL (1.8-7.7) 3.8 x10^3uL (1.8-7.7) Lymphocytes # (Auto) 1.1 x10^3/uL (1.0-4.8) 1.4 x10^3/uL (1.0-4.8) Monocytes # (Auto) 0.5 x10^3/uL (0.0-1.1) 0.5 x10^3/uL (0.0-1.1) Eosinophils # (Auto) 0.0 x10^3/uL (0.0-0.7) 0.1 x10^3/uL (0.0-0.7) Basophils # (Auto) 0.0 x10^3/uL (0.0-0.2) 0.1 x10^3/uL (0.0-0.2) Sodium Level 141 mmol/L (136-145) 142 mmol/L (136-145) Potassium Level 4.0 mmol/L (3.5-5.1) 3.6 mmol/L (3.5-5.1) Chloride Level 101 mmol/L (98-107) 103 mmol/L (98-107) Carbon Dioxide Level 26 mmol/L (21-32) 24 mmol/L (21-32) Anion Gap 14 (6-14) 15 (6-14) Blood Urea Nitrogen 18 mg/dL (7-20) 18 mg/dL (7-20) Creatinine 0.7 mg/dL (0.6-1.0) 0.8 mg/dL (0.6-1.0) Estimated GFR (Cockcroft-Gault) 80.5 69.0 BUN/Creatinine Ratio 26 (6-20) Glucose Level 89 mg/dL (70-99) 73 mg/dL (70-99) Calcium Level 10.6 mg/dL (8.5-10.1) 10.0 mg/dL (8.5-10.1) Total Bilirubin 0.7 mg/dL (0.2-1.0) Aspartate Amino Transf (AST/SGOT) 19 U/L (15-37) Alanine Aminotransferase (ALT/SGPT) 18 U/L (14-59) Alkaline Phosphatase 158 U/L (46-116) Total Protein 8.1 g/dL (6.4-8.2) Albumin 4.2 g/dL (3.4-5.0) Albumin/Globulin Ratio 1.1 (1.0-1.7) Laboratory Tests Test 05/16/18 04:30 White Blood Count 5.8 x10^3/uL (4.0-11.0) Red Blood Count 4.11 x10^6/uL (3.50-5.40) Hemoglobin 13.1 g/dL (12.0-15.5) Hematocrit 38.0 % (36.0-47.0) Mean Corpuscular Volume 92 fL (79-100) Mean Corpuscular Hemoglobin 32 pg (25-35) Mean Corpuscular Hemoglobin Concent 34 g/dL (31-37) Red Cell Distribution Width 13.9 % (11.5-14.5) Platelet Count 223 x10^3/uL (140-400) Neutrophils (%) (Auto) 65 % (31-73) Lymphocytes (%) (Auto) 24 % (24-48) Monocytes (%) (Auto) 9 % (0-9) Eosinophils (%) (Auto) 2 % (0-3) Basophils (%) (Auto) 1 % (0-3) Neutrophils # (Auto) 3.8 x10^3uL (1.8-7.7) Lymphocytes # (Auto) 1.4 x10^3/uL (1.0-4.8) Monocytes # (Auto) 0.5 x10^3/uL (0.0-1.1) Eosinophils # (Auto) 0.1 x10^3/uL (0.0-0.7) Basophils # (Auto) 0.1 x10^3/uL (0.0-0.2) Sodium Level 142 mmol/L (136-145) Potassium Level 3.6 mmol/L (3.5-5.1) Chloride Level 103 mmol/L (98-107) Carbon Dioxide Level 24 mmol/L (21-32) Anion Gap 15 (6-14) Blood Urea Nitrogen 18 mg/dL (7-20) Creatinine 0.8 mg/dL (0.6-1.0) Estimated GFR (Cockcroft-Gault) 69.0 Glucose Level 73 mg/dL (70-99) Calcium Level 10.0 mg/dL (8.5-10.1) Medications Current Medications Ondansetron HCl (Zofran) 4 mg PRN Q8HRS PRN IV NAUSEA/VOMITING; Start 05/15/18 at 15:45; Stop 05/16/18 at 11:16; Status DC Morphine Sulfate (Morphine Sulfate) 2 mg PRN Q2HR PRN IV PAIN; Start 05/15/18 at 15:45; Stop 05/16/18 at 11:17; Status DC Acetaminophen (Tylenol) 650 mg PRN Q4HRS PRN PO FEVER Last administered on 05/15at 20:44; Start 05/15/18 at 15:45; Stop 05/16/18 at 11:17; Status DC Info (Do NOT chart on this placeholder) 1 each PRN 1X PRN MC SEE COMMENTS; Start 05/15/18 at 17:15; Status UNV Influenza Virus Vaccine (Afluria Trivalent [id number] Syringe) 0.5 ml ONCE ONCE VAX IM Last administered on 05/15/18at 17:44; Start 05/15/18 at 18:00; Stop at 18:01; Status DC Lidocaine (Lidoderm) 1 patch QHS TD Last administered on 05/15/18at 20:44; Start 05/15/18 at 21:00 Miscellaneous (Lidoderm Patch Removal) 1 ea DAILY MC Last administered on at 09:00; Start 05/16/18 at 09:00 Acetaminophen (Tylenol) 1,000 mg PRN Q6HRS PRN PO PAIN; Start 05/15/18 at 21:45 Aspirin (Ecotrin) 81 mg DAILY08 PO Last administered on 05/16/18at 09:01; Start 05/16/18 at 08:00 Calcitonin [place] (Miacalcin Nasal) 1 spray DAILY NS Last administered on at 10:21; Start 05/16/18 at 09:00 Calcium Carbonate/ Glycine (Oscal) 500 mg PRN Q6HRS PRN PO INDIGESTION; Start 05/15/18 at 21:45 Pantoprazole Sodium (Protonix) 40 mg DAILYAC PO Last administered on 05/16/18at 09:01; Start 05/16/18 at 07:30 Prochlorperazine Maleate (Compazine) 10 mg PRN Q4HRS PRN PO NAUSEA/VOMITING; Start 05/15/18 at 21:45 Senna/Docusate Sodium (Senna Plus) 1 tab PRN DAILY PRN PO CONSTIPATION; Start 05/15/18 at 21:45 Donepezil HCl (Aricept) 5 mg QHS PO ; Start 05/16/18 at 21:00 Fentanyl Citrate (Fentanyl 2ml Vial) 25 mcg PRN Q4HRS PRN IV PAIN; Start at 21:45 Active Scripts Active Pantoprazole Sodium 40 Mg Tablet.dr 40 Mg PO DAILYAC 30 Days Reported Acetaminophen 500 Mg Tablet 1,000 Mg PO PRN Q6HRS PRN Pain reported <7/10 Do not exceed 3gm/day acetaminophen from all sources. Vitamin D3 (Cholecalciferol (Vitamin D3)) 50,000 Unit Capsule 50,000 Unit PO WEEKLY Saturday Tablet (Pnv Cmb#95/Ferrous Fumarate/Fa) 1 Each Tablet 1 Tab PO DAILY Donepezil Hcl 5 Mg Tablet 5 Mg PO HS Calcitonin-[place] (Calcitonin,[place],Synthetic) 3.7 Ml [place].pump 3.7 Ml [place] DAILY Senexon-S Tablet (Sennosides/Docusate Sodium) 1 Each Tablet 1 Each PO PRN DAILY PRN Prochlorperazine Maleate 10 Mg Tablet 1 Tab PO PRN Q4HRS PRN Hydrocodone-Apap 7.5-325 (Hydrocodone Bit/Acetaminophen) 1 Each Tablet 1 Tab PO PRN Q6HRS PRN Calcium Carbonate 500 Mg Tablet 500 Mg PO PRN Q6HRS PRN Aspir 81 (Aspirin) 81 Mg Tablet.dr 81 Mg PO DAILY08 Vitals/I & O Vital Sign - Last 24 Hours 05/15/18 05/15/18 05/15/18 05/15/18 15:50 16:00 19:00 20:00 Temp 97.3 98.4 97.3 98.4 Pulse 68 74 Resp 16 18 B/P (MAP) 144/72 (96) 122/69 (86) Pulse Ox 98 93 O2 Delivery Room Air Room Air Room Air Room Air 05/15/18 05/16/18 05/16/18 05/16/18 23:00 03:00 07:00 08:10 Temp 97.4 97.8 98.2 97.4 97.8 98.2 Pulse 74 78 70 Resp 18 18 18 B/P (MAP) 125/67 (86) 126/60 (82) 115/63 (80) Pulse Ox 93 95 97 O2 Delivery Room Air Room Air Room Air Room Air 05/16/18 11:00 Temp 98.2 98.2 Pulse 90 Resp 18 B/P (MAP) 120/68 (85) Pulse Ox 98 O2 Delivery Room Air Intake and Output 05/15/18 05/15/18 05/16/18 15:00 23:00 07:00 Intake Total 0 ml Output Total 0 ml Balance 0 ml 0 ml Nutrition Consultation Dietary Evaluation: Recommendations by RD: Increase Calorie Intake, Protein supplementation Comments: ensure enlive bid Expected Outcomes/Goals: to meet > 75% est nutr needs Malnutrition Findings: Body Fat Depletion (Non Severe: Mod to Severe Weight Status: Underweight FRANCIE REID MD May 16, 2018 14:53
[2018-05-16 15:00] VITALS: BP 113/50
[2018-05-16] MEDS ORDERED: MORPHINE SULFATE 2 MG/ML VIAL. IV PRN (15:00)
[2018-05-16] MEDS ORDERED: ONDANSETRON PF 4 MG/2 ML VIAL. IV PRN (15:00)
[2018-05-16] MEDS ORDERED: DOCUSATE SODIUM 100 MG CAPSULE. PO PRN (15:00)
--- NOTE | 2018-05-16 17:10 | RAD ---
Metastatic skeletal survey, 05/16/2018: HISTORY: Possible bone metastases Multiple views of the bony skeleton were obtained with the following findings delineated: 1. AP and lateral views of the cervical spine reveal generalized bony demineralization. There are mild scattered spurs and moderate degenerative changes involving scattered facet joints. No fracture or destructive bony lesion is seen. 2. A lateral view of the skull reveals no abnormality. 3. AP and lateral views of the thoracic spine demonstrate vertebroplasty changes at T6 and T10. There are old T9 and T12 vertebral compression fractures. 4. AP and lateral views of the lumbar spine demonstrate vertebral compression fractures at L1, L2 and L4 as fully described on the recent CT study. There is a component of sclerosis related to the L2 compression fracture. There are scattered degenerative changes. 5. AP view of the chest demonstrates no destructive rib lesion. A right shoulder prosthesis is in place. The lungs are clear. 6. An AP view of the pelvis demonstrates no fracture or destructive bony lesion. There are mild degenerative changes at both hip joints. 7. AP views of both femurs and lower legs show no fracture or destructive bony lesion. 8. AP views of both humeri and forearms reveal no fracture or destructive bony lesion. IMPRESSION: 1. Generalized bony demineralization. 2. Multiple thoracic and lumbar vertebral compression deformities as previously described. 3. Moderate multilevel degenerative change in the spine. 4. Right shoulder prosthesis in place. 5. No lytic bone lesions are detected. Electronically signed by: Joao Garcia MD (05/16/2018 5:07 PM) [facility]
[2018-05-16] MEDS: ENOXAPARIN 40 MG/0.4 ML SYRINGE. SQ SCH (17:23)
[2018-05-16 19:00] VITALS: BP 108/64
[2018-05-16] MEDS: LIDOCAINE (700MG/PATCH) PATCH. TD SCH (19:48)
[2018-05-16] MEDS: DONEPEZIL HCL 5 MG TABLET. PO SCH (19:49)
[2018-05-16] MEDS: traMADol 50 MG TABLET PO PRN (19:49)
[2018-05-16 23:00] VITALS: BP 120/70
[2018-05-17 03:00] VITALS: BP 113/73
[2018-05-17 05:49] LABS: BASO # 0.1 x10^3/uL (0.0-0.2); BASO % 1 % (0-3); EOS # 0.1 x10^3/uL (0.0-0.7); EOS % 2 % (0-3); HEMATOCRIT 35.6 % (36.0-47.0); HEMOGLOBIN 12.2 g/dL (12.0-15.5); LYMPH # 1.8 x10^3/uL (1.0-4.8); LYMPH % 36 % (24-48); MEAN CORPUSCULAR HEMOGLOBIN 32 pg (25-35); MEAN CORPUSCULAR HGB CONC 34 g/dL (31-37); MEAN CORPUSCULAR VOLUME 92 fL (79-100); MONO # 0.5 x10^3/uL (0.0-1.1); MONO % 9 % (0-9); NEUT # 2.6 x10^3uL (1.8-7.7); NEUT % 51 % (31-73); PLATELET COUNT 231 x10^3/uL (140-400); RED BLOOD COUNT 3.86 x10^6/uL (3.50-5.40); RED CELL DISTRIBUTION WIDTH 13.7 % (11.5-14.5); WHITE BLOOD COUNT 5.1 x10^3/uL (4.0-11.0)
[2018-05-17 06:11] LABS: CALCIUM 9.4 mg/dL (8.5-10.1); CREATININE 0.9 mg/dL (0.6-1.0); GFR 60.2; POTASSIUM 3.3 mmol/L (3.5-5.1)
[2018-05-17 07:00] VITALS: BP 104/60
[2018-05-17] MEDS: ASPIRIN ENTERIC COATED 81 MG TABLET.DR. PO SCH (08:20)
[2018-05-17] MEDS: PANTOPRAZOLE 40 MG TABLET.DR. PO SCH (08:20)
[2018-05-17] MEDS: CALCITONIN,SALMON NASAL 200 UNITS/SPRAY 3.7ML BOTTLE. NS SCH (08:20)
[2018-05-17] MEDS: PATCH REMOVAL. MC SCH (08:22)
--- NOTE | 2018-05-17 10:22 | PDOC ---
PROGRESS NOTES Subjective Subjective No new complaints. Objective Objective Vital Signs Date Time Temp Pulse Resp B/P (MAP) Pulse Ox O2 Delivery O2 Flow Rate FiO2 05/17/18 07:20 Room Air 05/17/18 07:00 97.7 68 17 104/60 (75) 96 97.7 Intake and Output 05/17/18 07:00 Intake Total 0 ml Output Total 0 ml Balance 0 ml Blood Product 0 ml Output Urine Total 0 ml # Voids 1 Physical Exam Physical Exam She is sitting in bedside chair without back support. She did walk for 60' with physical therapy using a roller walker. Plan Plan of Care To use lumbar corset as tolerated and to assisted living facility when medically stable. Comment Review of Relevant I have reviewed the following items bubba (where applicable) has been applied. Labs Laboratory Tests Test 05/15/18 11:30 05/15/18 13:45 05/16/18 04:30 05/17/18 05:00 Urine Collection Type U cath Urine Color Yellow Urine Clarity Clear Urine pH 5.5 Urine Specific [place] 1.025 Urine Protein Negative mg/dL (NEG-TRACE) Urine Glucose (UA) Negative mg/dL (NEG) Urine Ketones (Stick) 40 mg/dL (NEG) Urine Blood Negative (NEG) Urine Nitrite Negative (NEG) Urine Bilirubin Small (NEG) Urine Urobilinogen Dipstick 0.2 mg/dL (0.2 mg/dL) Urine Leukocyte Esterase Negative (NEG) Urine RBC 0 /HPF (0-2) Urine WBC 0 /HPF (0-4) Urine Squamous Epithelial Cells Few /LPF Urine Amorphous Sediment Present /HPF Urine Bacteria 0 /HPF (0-FEW) Urine Hyaline Casts Moderate /HPF Urine Mucus Marked /LPF White Blood Count 7.8 x10^3/uL (4.0-11.0) 5.8 x10^3/uL (4.0-11.0) 5.1 x10^3/uL (4.0-11.0) Red Blood Count 4.56 x10^6/uL (3.50-5.40) 4.11 x10^6/uL (3.50-5.40) 3.86 x10^6/uL (3.50-5.40) Hemoglobin 14.5 g/dL (12.0-15.5) 13.1 g/dL (12.0-15.5) 12.2 g/dL (12.0-15.5) Hematocrit 42.4 % (36.0-47.0) 38.0 % (36.0-47.0) 35.6 % (36.0-47.0) Mean Corpuscular Volume 93 fL (79-100) 92 fL (79-100) 92 fL (79-100) Mean Corpuscular Hemoglobin 32 pg (25-35) 32 pg (25-35) 32 pg (25-35) Mean Corpuscular Hemoglobin Concent 34 g/dL (31-37) 34 g/dL (31-37) 34 g/dL (31-37) Red Cell Distribution Width 13.7 % (11.5-14.5) 13.9 % (11.5-14.5) 13.7 % (11.5-14.5) Platelet Count 244 x10^3/uL (140-400) 223 x10^3/uL (140-400) 231 x10^3/uL (140-400) Neutrophils (%) (Auto) 78 % (31-73) 65 % (31-73) 51 % (31-73) Lymphocytes (%) (Auto) 14 % (24-48) 24 % (24-48) 36 % (24-48) Monocytes (%) (Auto) 7 % (0-9) 9 % (0-9) 9 % (0-9) Eosinophils (%) (Auto) 0 % (0-3) 2 % (0-3) 2 % (0-3) Basophils (%) (Auto) 1 % (0-3) 1 % (0-3) 1 % (0-3) Neutrophils # (Auto) 6.1 x10^3uL (1.8-7.7) 3.8 x10^3uL (1.8-7.7) 2.6 x10^3uL (1.8-7.7) Lymphocytes # (Auto) 1.1 x10^3/uL (1.0-4.8) 1.4 x10^3/uL (1.0-4.8) 1.8 x10^3/uL (1.0-4.8) Monocytes # (Auto) 0.5 x10^3/uL (0.0-1.1) 0.5 x10^3/uL (0.0-1.1) 0.5 x10^3/uL (0.0-1.1) Eosinophils # (Auto) 0.0 x10^3/uL (0.0-0.7) 0.1 x10^3/uL (0.0-0.7) 0.1 x10^3/uL (0.0-0.7) Basophils # (Auto) 0.0 x10^3/uL (0.0-0.2) 0.1 x10^3/uL (0.0-0.2) 0.1 x10^3/uL (0.0-0.2) Sodium Level 141 mmol/L (136-145) 142 mmol/L (136-145) 141 mmol/L (136-145) Potassium Level 4.0 mmol/L (3.5-5.1) 3.6 mmol/L (3.5-5.1) 3.3 mmol/L (3.5-5.1) Chloride Level 101 mmol/L (98-107) 103 mmol/L (98-107) 104 mmol/L (98-107) Carbon Dioxide Level 26 mmol/L (21-32) 24 mmol/L (21-32) 29 mmol/L (21-32) Anion Gap 14 (6-14) 15 (6-14) 8 (6-14) Blood Urea Nitrogen 18 mg/dL (7-20) 18 mg/dL (7-20) 19 mg/dL (7-20) Creatinine 0.7 mg/dL (0.6-1.0) 0.8 mg/dL (0.6-1.0) 0.9 mg/dL (0.6-1.0) Estimated GFR (Cockcroft-Gault) 80.5 69.0 60.2 BUN/Creatinine Ratio 26 (6-20) Glucose Level 89 mg/dL (70-99) 73 mg/dL (70-99) 110 mg/dL (70-99) Calcium Level 10.6 mg/dL (8.5-10.1) 10.0 mg/dL (8.5-10.1) 9.4 mg/dL (8.5-10.1) Total Bilirubin 0.7 mg/dL (0.2-1.0) Aspartate Amino Transf (AST/SGOT) 19 U/L (15-37) Alanine Aminotransferase (ALT/SGPT) 18 U/L (14-59) Alkaline Phosphatase 158 U/L (46-116) Total Protein 8.1 g/dL (6.4-8.2) Albumin 4.2 g/dL (3.4-5.0) Albumin/Globulin Ratio 1.1 (1.0-1.7) Laboratory Tests Test 05/17/18 05:00 White Blood Count 5.1 x10^3/uL (4.0-11.0) Red Blood Count 3.86 x10^6/uL (3.50-5.40) Hemoglobin 12.2 g/dL (12.0-15.5) Hematocrit 35.6 % (36.0-47.0) Mean Corpuscular Volume 92 fL (79-100) Mean Corpuscular Hemoglobin 32 pg (25-35) Mean Corpuscular Hemoglobin Concent 34 g/dL (31-37) Red Cell Distribution Width 13.7 % (11.5-14.5) Platelet Count 231 x10^3/uL (140-400) Neutrophils (%) (Auto) 51 % (31-73) Lymphocytes (%) (Auto) 36 % (24-48) Monocytes (%) (Auto) 9 % (0-9) Eosinophils (%) (Auto) 2 % (0-3) Basophils (%) (Auto) 1 % (0-3) Neutrophils # (Auto) 2.6 x10^3uL (1.8-7.7) Lymphocytes # (Auto) 1.8 x10^3/uL (1.0-4.8) Monocytes # (Auto) 0.5 x10^3/uL (0.0-1.1) Eosinophils # (Auto) 0.1 x10^3/uL (0.0-0.7) Basophils # (Auto) 0.1 x10^3/uL (0.0-0.2) Sodium Level 141 mmol/L (136-145) Potassium Level 3.3 mmol/L (3.5-5.1) Chloride Level 104 mmol/L (98-107) Carbon Dioxide Level 29 mmol/L (21-32) Anion Gap 8 (6-14) Blood Urea Nitrogen 19 mg/dL (7-20) Creatinine 0.9 mg/dL (0.6-1.0) Estimated GFR (Cockcroft-Gault) 60.2 Glucose Level 110 mg/dL (70-99) Calcium Level 9.4 mg/dL (8.5-10.1) Medications Current Medications Ondansetron HCl (Zofran) 4 mg PRN Q8HRS PRN IV NAUSEA/VOMITING; Start 05/15/18 at 15:45; Stop 05/16/18 at 11:16; Status DC Morphine Sulfate (Morphine Sulfate) 2 mg PRN Q2HR PRN IV PAIN; Start 05/15/18 at 15:45; Stop 05/16/18 at 11:17; Status DC Acetaminophen (Tylenol) 650 mg PRN Q4HRS PRN PO FEVER Last administered on 05/15at 20:44; Start 05/15/18 at 15:45; Stop 05/16/18 at 11:17; Status DC Info (Do NOT chart on this placeholder) 1 each PRN 1X PRN MC SEE COMMENTS; Start 05/15/18 at 17:15; Status UNV Influenza Virus Vaccine (Afluria Trivalent 4475-2910 Syringe) 0.5 ml ONCE ONCE VAX IM Last administered on 05/15/18at 17:44; Start 05/15/18 at 18:00; Stop at 18:01; Status DC Lidocaine (Lidoderm) 1 patch QHS TD Last administered on 05/16/18at 19:48; Start 05/15/18 at 21:00 Miscellaneous (Lidoderm Patch Removal) 1 ea DAILY MC Last administered on at 08:22; Start 05/16/18 at 09:00 Acetaminophen (Tylenol) 1,000 mg PRN Q6HRS PRN PO PAIN; Start 05/15/18 at 21:45 ; Stop 05/16/18 at 14:52; Status DC Aspirin (Ecotrin) 81 mg DAILY08 PO Last administered on 05/17/18at 08:20; Start 05/16/18 at 08:00 Calcitonin [place] (Miacalcin Nasal) 1 spray DAILY NS Last administered on at 08:20; Start 05/16/18 at 09:00 Calcium Carbonate/ Glycine (Oscal) 500 mg PRN Q6HRS PRN PO INDIGESTION; Start 05/15/18 at 21:45 Pantoprazole Sodium (Protonix) 40 mg DAILYAC PO Last administered on 05/17/18at 08:20; Start 05/16/18 at 07:30 Prochlorperazine Maleate (Compazine) 10 mg PRN Q4HRS PRN PO NAUSEA/VOMITING; Start 05/15/18 at 21:45 Senna/Docusate Sodium (Senna Plus) 1 tab PRN DAILY PRN PO CONSTIPATION; Start 05/15/18 at 21:45 Donepezil HCl (Aricept) 5 mg QHS PO Last administered on 05/16/18at 19:49; Start 05/16/18 at 21:00 Fentanyl Citrate (Fentanyl 2ml Vial) 25 mcg PRN Q4HRS PRN IV MODERATE PAIN; Start 05/15/18 at 21:45 Acetaminophen (Tylenol) 650 mg PRN Q6HRS PRN PO FEVER; Start 05/16/18 at 15:00 Ondansetron HCl (Zofran) 4 mg PRN Q6HRS PRN IV NAUSEA/VOMITING; Start 05/16/18 at 15:00 Morphine Sulfate (Morphine Sulfate) 2 mg PRN Q2HR PRN IV SEVERE PAIN; Start at 15:00 Tramadol HCl (Ultram) 50 mg PRN Q6HRS PRN PO MILD TO MODERATE PAIN Last administered on 05/16/18at 19:49; Start 05/16/18 at 15:00 Docusate Sodium (Colace) 100 mg PRN DAILY PRN PO HARD STOOLS; Start 05/16/18 at 15:00 Enoxaparin Sodium (Lovenox 40mg Syringe) 40 mg Q24H SQ Last administered on at 17:23; Start 05/16/18 at 16:00 Active Scripts Active Pantoprazole Sodium 40 Mg Tablet.dr 40 Mg PO DAILYAC 30 Days Reported Acetaminophen 500 Mg Tablet 1,000 Mg PO PRN Q6HRS PRN Pain reported <7/10 Do not exceed 3gm/day acetaminophen from all sources. Vitamin D3 (Cholecalciferol (Vitamin D3)) 50,000 Unit Capsule 50,000 Unit PO WEEKLY Saturday Tablet (Pnv Cmb#95/Ferrous Fumarate/Fa) 1 Each Tablet 1 Tab PO DAILY Donepezil Hcl 5 Mg Tablet 5 Mg PO HS Calcitonin-[place] (Calcitonin,[place],Synthetic) 3.7 Ml [place].pump 3.7 Ml NS DAILY Senexon-S Tablet (Sennosides/Docusate Sodium) 1 Each Tablet 1 Each PO PRN DAILY PRN Prochlorperazine Maleate 10 Mg Tablet 1 Tab PO PRN Q4HRS PRN Hydrocodone-Apap 7.5-325 (Hydrocodone Bit/Acetaminophen) 1 Each Tablet 1 Tab PO PRN Q6HRS PRN Calcium Carbonate 500 Mg Tablet 500 Mg PO PRN Q6HRS PRN Aspir 81 (Aspirin) 81 Mg Tablet.dr 81 Mg PO DAILY08 Vitals/I & O Vital Sign - Last 24 Hours 05/16/18 05/16/18 05/16/18 05/16/18 11:00 15:00 19:00 19:49 Temp 98.2 98.1 98.0 98.2 98.1 98.0 Pulse 90 75 80 Resp 18 18 18 B/P (MAP) 120/68 (85) 113/50 (71) 108/64 (79) Pulse Ox 98 97 97 O2 Delivery Room Air Room Air Room Air Room Air 05/16/18 05/16/18 05/16/18 05/17/18 20:00 20:49 23:00 03:00 Temp 98.4 97.9 98.4 97.9 Pulse 94 72 Resp 18 18 B/P (MAP) 120/70 (87) 113/73 (86) Pulse Ox 97 95 O2 Delivery Room Air Room Air Room Air Room Air 05/17/18 05/17/18 07:00 07:20 Temp 97.7 97.7 Pulse 68 Resp 17 B/P (MAP) 104/60 (75) Pulse Ox 96 O2 Delivery Room Air Room Air Intake and Output 05/16/18 05/16/18 05/17/18 15:00 23:00 07:00 Intake Total 0 ml Output Total 0 ml Balance 0 ml Nutrition Consultation Dietary Evaluation: Recommendations by RD: Increase Calorie Intake, Protein supplementation Comments: ensure enlive bid Expected Outcomes/Goals: to meet > 75% est nutr needs Malnutrition Findings: Body Fat Depletion (Non Severe: Mod to Severe Weight Status: Underweight JAGDEEP,SIVAKOTI R MD May 17, 2018 10:22
[2018-05-17 10:48] VITALS: BP 117/73
--- NOTE | 2018-05-17 13:35 | PDOC ---
PROGRESS NOTES Chief Complaint Chief Complaint severe lower back pain with new L2 FX Old T12 and L1 vertebral compression fractures. Mild L4 vertebral compression fracture of indeterminate age. . GAIT instability MILD dementia PLAN: fu with dr. Smith, dr. Hernandez? pain control cont some home meds dvt ppx PTOT pt not much pain while walking, talked to dr. Smith, jose roberto just ob SW consult for possible SNF on Saturday, pt from assisted living facility History of Present Illness History of Present Illness ROS: no fever, chills, sob or chest pain CONT LOWER back PAIN, can walk Vitals Vitals Vital Signs Date Time Temp Pulse Resp B/P (MAP) Pulse Ox O2 Delivery O2 Flow Rate FiO2 05/17/18 10:48 97.7 74 17 117/73 (88) 97 Room Air 97.7 Physical Exam General: Alert, Oriented X3, Cooperative Heart: Regular rate, Normal S1, Normal S2 Lungs: Clear Abdomen: Normal bowel sounds, Soft Extremities: No clubbing, No cyanosis Skin: No rashes Labs LABS Laboratory Tests Test 05/17/18 05:00 White Blood Count 5.1 x10^3/uL (4.0-11.0) Red Blood Count 3.86 x10^6/uL (3.50-5.40) Hemoglobin 12.2 g/dL (12.0-15.5) Hematocrit 35.6 % (36.0-47.0) Mean Corpuscular Volume 92 fL (79-100) Mean Corpuscular Hemoglobin 32 pg (25-35) Mean Corpuscular Hemoglobin Concent 34 g/dL (31-37) Red Cell Distribution Width 13.7 % (11.5-14.5) Platelet Count 231 x10^3/uL (140-400) Neutrophils (%) (Auto) 51 % (31-73) Lymphocytes (%) (Auto) 36 % (24-48) Monocytes (%) (Auto) 9 % (0-9) Eosinophils (%) (Auto) 2 % (0-3) Basophils (%) (Auto) 1 % (0-3) Neutrophils # (Auto) 2.6 x10^3uL (1.8-7.7) Lymphocytes # (Auto) 1.8 x10^3/uL (1.0-4.8) Monocytes # (Auto) 0.5 x10^3/uL (0.0-1.1) Eosinophils # (Auto) 0.1 x10^3/uL (0.0-0.7) Basophils # (Auto) 0.1 x10^3/uL (0.0-0.2) Sodium Level 141 mmol/L (136-145) Potassium Level 3.3 mmol/L (3.5-5.1) Chloride Level 104 mmol/L (98-107) Carbon Dioxide Level 29 mmol/L (21-32) Anion Gap 8 (6-14) Blood Urea Nitrogen 19 mg/dL (7-20) Creatinine 0.9 mg/dL (0.6-1.0) Estimated GFR (Cockcroft-Gault) 60.2 Glucose Level 110 mg/dL (70-99) Calcium Level 9.4 mg/dL (8.5-10.1) Comment Review of Relevant I have reviewed the following items bubba (where applicable) has been applied. Labs Laboratory Tests Test 05/15/18 13:45 05/16/18 04:30 05/17/18 05:00 White Blood Count 7.8 x10^3/uL (4.0-11.0) 5.8 x10^3/uL (4.0-11.0) 5.1 x10^3/uL (4.0-11.0) Red Blood Count 4.56 x10^6/uL (3.50-5.40) 4.11 x10^6/uL (3.50-5.40) 3.86 x10^6/uL (3.50-5.40) Hemoglobin 14.5 g/dL (12.0-15.5) 13.1 g/dL (12.0-15.5) 12.2 g/dL (12.0-15.5) Hematocrit 42.4 % (36.0-47.0) 38.0 % (36.0-47.0) 35.6 % (36.0-47.0) Mean Corpuscular Volume 93 fL (79-100) 92 fL (79-100) 92 fL (79-100) Mean Corpuscular Hemoglobin 32 pg (25-35) 32 pg (25-35) 32 pg (25-35) Mean Corpuscular Hemoglobin Concent 34 g/dL (31-37) 34 g/dL (31-37) 34 g/dL (31-37) Red Cell Distribution Width 13.7 % (11.5-14.5) 13.9 % (11.5-14.5) 13.7 % (11.5-14.5) Platelet Count 244 x10^3/uL (140-400) 223 x10^3/uL (140-400) 231 x10^3/uL (140-400) Neutrophils (%) (Auto) 78 % (31-73) 65 % (31-73) 51 % (31-73) Lymphocytes (%) (Auto) 14 % (24-48) 24 % (24-48) 36 % (24-48) Monocytes (%) (Auto) 7 % (0-9) 9 % (0-9) 9 % (0-9) Eosinophils (%) (Auto) 0 % (0-3) 2 % (0-3) 2 % (0-3) Basophils (%) (Auto) 1 % (0-3) 1 % (0-3) 1 % (0-3) Neutrophils # (Auto) 6.1 x10^3uL (1.8-7.7) 3.8 x10^3uL (1.8-7.7) 2.6 x10^3uL (1.8-7.7) Lymphocytes # (Auto) 1.1 x10^3/uL (1.0-4.8) 1.4 x10^3/uL (1.0-4.8) 1.8 x10^3/uL (1.0-4.8) Monocytes # (Auto) 0.5 x10^3/uL (0.0-1.1) 0.5 x10^3/uL (0.0-1.1) 0.5 x10^3/uL (0.0-1.1) Eosinophils # (Auto) 0.0 x10^3/uL (0.0-0.7) 0.1 x10^3/uL (0.0-0.7) 0.1 x10^3/uL (0.0-0.7) Basophils # (Auto) 0.0 x10^3/uL (0.0-0.2) 0.1 x10^3/uL (0.0-0.2) 0.1 x10^3/uL (0.0-0.2) Sodium Level 141 mmol/L (136-145) 142 mmol/L (136-145) 141 mmol/L (136-145) Potassium Level 4.0 mmol/L (3.5-5.1) 3.6 mmol/L (3.5-5.1) 3.3 mmol/L (3.5-5.1) Chloride Level 101 mmol/L (98-107) 103 mmol/L (98-107) 104 mmol/L (98-107) Carbon Dioxide Level 26 mmol/L (21-32) 24 mmol/L (21-32) 29 mmol/L (21-32) Anion Gap 14 (6-14) 15 (6-14) 8 (6-14) Blood Urea Nitrogen 18 mg/dL (7-20) 18 mg/dL (7-20) 19 mg/dL (7-20) Creatinine 0.7 mg/dL (0.6-1.0) 0.8 mg/dL (0.6-1.0) 0.9 mg/dL (0.6-1.0) Estimated GFR (Cockcroft-Gault) 80.5 69.0 60.2 BUN/Creatinine Ratio 26 (6-20) Glucose Level 89 mg/dL (70-99) 73 mg/dL (70-99) 110 mg/dL (70-99) Calcium Level 10.6 mg/dL (8.5-10.1) 10.0 mg/dL (8.5-10.1) 9.4 mg/dL (8.5-10.1) Total Bilirubin 0.7 mg/dL (0.2-1.0) Aspartate Amino Transf (AST/SGOT) 19 U/L (15-37) Alanine Aminotransferase (ALT/SGPT) 18 U/L (14-59) Alkaline Phosphatase 158 U/L (46-116) Total Protein 8.1 g/dL (6.4-8.2) Albumin 4.2 g/dL (3.4-5.0) Albumin/Globulin Ratio 1.1 (1.0-1.7) Laboratory Tests Test 05/17/18 05:00 White Blood Count 5.1 x10^3/uL (4.0-11.0) Red Blood Count 3.86 x10^6/uL (3.50-5.40) Hemoglobin 12.2 g/dL (12.0-15.5) Hematocrit 35.6 % (36.0-47.0) Mean Corpuscular Volume 92 fL (79-100) Mean Corpuscular Hemoglobin 32 pg (25-35) Mean Corpuscular Hemoglobin Concent 34 g/dL (31-37) Red Cell Distribution Width 13.7 % (11.5-14.5) Platelet Count 231 x10^3/uL (140-400) Neutrophils (%) (Auto) 51 % (31-73) Lymphocytes (%) (Auto) 36 % (24-48) Monocytes (%) (Auto) 9 % (0-9) Eosinophils (%) (Auto) 2 % (0-3) Basophils (%) (Auto) 1 % (0-3) Neutrophils # (Auto) 2.6 x10^3uL (1.8-7.7) Lymphocytes # (Auto) 1.8 x10^3/uL (1.0-4.8) Monocytes # (Auto) 0.5 x10^3/uL (0.0-1.1) Eosinophils # (Auto) 0.1 x10^3/uL (0.0-0.7) Basophils # (Auto) 0.1 x10^3/uL (0.0-0.2) Sodium Level 141 mmol/L (136-145) Potassium Level 3.3 mmol/L (3.5-5.1) Chloride Level 104 mmol/L (98-107) Carbon Dioxide Level 29 mmol/L (21-32) Anion Gap 8 (6-14) Blood Urea Nitrogen 19 mg/dL (7-20) Creatinine 0.9 mg/dL (0.6-1.0) Estimated GFR (Cockcroft-Gault) 60.2 Glucose Level 110 mg/dL (70-99) Calcium Level 9.4 mg/dL (8.5-10.1) Medications Current Medications Ondansetron HCl (Zofran) 4 mg PRN Q8HRS PRN IV NAUSEA/VOMITING; Start 05/15/18 at 15:45; Stop 05/16/18 at 11:16; Status DC Morphine Sulfate (Morphine Sulfate) 2 mg PRN Q2HR PRN IV PAIN; Start 05/15/18 at 15:45; Stop 05/16/18 at 11:17; Status DC Acetaminophen (Tylenol) 650 mg PRN Q4HRS PRN PO FEVER Last administered on 05/15at 20:44; Start 05/15/18 at 15:45; Stop 05/16/18 at 11:17; Status DC Info (Do NOT chart on this placeholder) 1 each PRN 1X PRN MC SEE COMMENTS; Start 05/15/18 at 17:15; Status UNV Influenza Virus Vaccine (Afluria Trivalent [id number] Syringe) 0.5 ml ONCE ONCE VAX IM Last administered on 05/15/18at 17:44; Start 05/15/18 at 18:00; Stop at 18:01; Status DC Lidocaine (Lidoderm) 1 patch QHS TD Last administered on 05/16/18at 19:48; Start 05/15/18 at 21:00 Miscellaneous (Lidoderm Patch Removal) 1 ea DAILY MC Last administered on at 08:22; Start 05/16/18 at 09:00 Acetaminophen (Tylenol) 1,000 mg PRN Q6HRS PRN PO PAIN; Start 05/15/18 at 21:45 ; Stop 05/16/18 at 14:52; Status DC Aspirin (Ecotrin) 81 mg DAILY08 PO Last administered on 05/17/18at 08:20; Start 05/16/18 at 08:00 Calcitonin [place] (Miacalcin Nasal) 1 spray DAILY NS Last administered on at 08:20; Start 05/16/18 at 09:00 Calcium Carbonate/ Glycine (Oscal) 500 mg PRN Q6HRS PRN PO INDIGESTION; Start 05/15/18 at 21:45 Pantoprazole Sodium (Protonix) 40 mg DAILYAC PO Last administered on 05/17/18at 08:20; Start 05/16/18 at 07:30 Prochlorperazine Maleate (Compazine) 10 mg PRN Q4HRS PRN PO NAUSEA/VOMITING; Start 05/15/18 at 21:45 Senna/Docusate Sodium (Senna Plus) 1 tab PRN DAILY PRN PO CONSTIPATION; Start 05/15/18 at 21:45 Donepezil HCl (Aricept) 5 mg QHS PO Last administered on 05/16/18at 19:49; Start 05/16/18 at 21:00 Fentanyl Citrate (Fentanyl 2ml Vial) 25 mcg PRN Q4HRS PRN IV MODERATE PAIN; Start 05/15/18 at 21:45 Acetaminophen (Tylenol) 650 mg PRN Q6HRS PRN PO FEVER; Start 05/16/18 at 15:00 Ondansetron HCl (Zofran) 4 mg PRN Q6HRS PRN IV NAUSEA/VOMITING; Start 05/16/18 at 15:00 Morphine Sulfate (Morphine Sulfate) 2 mg PRN Q2HR PRN IV SEVERE PAIN; Start at 15:00 Tramadol HCl (Ultram) 50 mg PRN Q6HRS PRN PO MILD TO MODERATE PAIN Last administered on 05/16/18at 19:49; Start 05/16/18 at 15:00 Docusate Sodium (Colace) 100 mg PRN DAILY PRN PO HARD STOOLS; Start 05/16/18 at 15:00 Enoxaparin Sodium (Lovenox 40mg Syringe) 40 mg Q24H SQ Last administered on at 17:23; Start 05/16/18 at 16:00 Active Scripts Active Pantoprazole Sodium 40 Mg Tablet.dr 40 Mg PO DAILYAC 30 Days Reported Acetaminophen 500 Mg Tablet 1,000 Mg PO PRN Q6HRS PRN Pain reported <7/10 Do not exceed 3gm/day acetaminophen from all sources. Vitamin D3 (Cholecalciferol (Vitamin D3)) 50,000 Unit Capsule 50,000 Unit PO WEEKLY Saturday Tablet (Pnv Cmb#95/[place]errous Fumarate/Fa) 1 Each Tablet 1 Tab PO DAILY Donepezil Hcl 5 Mg Tablet 5 Mg PO HS Calcitonin-[place] (Calcitonin,[place],Synthetic) 3.7 Ml [place].pump 3.7 Ml NS DAILY Senexon-S Tablet (Sennosides/Docusate Sodium) 1 Each Tablet 1 Each PO PRN DAILY PRN Prochlorperazine Maleate 10 Mg Tablet 1 Tab PO PRN Q4HRS PRN Hydrocodone-Apap 7.5-325 (Hydrocodone Bit/Acetaminophen) 1 Each Tablet 1 Tab PO PRN Q6HRS PRN Calcium Carbonate 500 Mg Tablet 500 Mg PO PRN Q6HRS PRN Aspir 81 (Aspirin) 81 Mg Tablet.dr 81 Mg PO DAILY08 Vitals/I & O Vital Sign - Last 24 Hours 05/16/18 05/16/18 05/16/18 05/16/18 15:00 19:00 19:49 20:00 Temp 98.1 98.0 98.1 98.0 Pulse 75 80 Resp 18 18 B/P (MAP) 113/50 (71) 108/64 (79) Pulse Ox 97 97 O2 Delivery Room Air Room Air Room Air Room Air 05/16/18 05/16/18 05/17/18 05/17/18 20:49 23:00 03:00 07:00 Temp 98.4 97.9 97.7 98.4 97.9 97.7 Pulse 94 72 68 Resp 18 18 17 B/P (MAP) 120/70 (87) 113/73 (86) 104/60 (75) Pulse Ox 97 95 96 O2 Delivery Room Air Room Air Room Air Room Air 05/17/18 05/17/18 07:20 10:48 Temp 97.7 97.7 Pulse 74 Resp 17 B/P (MAP) 117/73 (88) Pulse Ox 97 O2 Delivery Room Air Room Air Intake and Output 05/16/18 05/16/18 05/17/18 15:00 23:00 07:00 Intake Total 0 ml Output Total 0 ml Balance 0 ml Nutrition Consultation Dietary Evaluation: Recommendations by RD: Increase Calorie Intake, Protein supplementation Comments: ensure enlive bid Expected Outcomes/Goals: to meet > 75% est nutr needs Malnutrition Findings: Body Fat Depletion (Non Severe: Mod to Severe Weight Status: Underweight FRANCIE REID MD May 17, 2018 13:35
[2018-05-17 14:32] VITALS: BP 124/64
[2018-05-17] MEDS: traMADol 50 MG TABLET PO PRN (16:19)
[2018-05-17] MEDS: ENOXAPARIN 40 MG/0.4 ML SYRINGE. SQ SCH (16:20)
[2018-05-17 19:00] VITALS: BP 134/81
[2018-05-17] MEDS: DONEPEZIL HCL 5 MG TABLET. PO SCH (20:52)
[2018-05-17] MEDS: LIDOCAINE (700MG/PATCH) PATCH. TD SCH (20:55)
[2018-05-17 23:00] VITALS: BP 137/73
[2018-05-18 03:00] VITALS: BP 130/82
[2018-05-18 07:42] VITALS: BP 115/52
[2018-05-18] MEDS: CALCITONIN,SALMON NASAL 200 UNITS/SPRAY 3.7ML BOTTLE. NS SCH (08:49)
[2018-05-18] MEDS: ASPIRIN ENTERIC COATED 81 MG TABLET.DR. PO SCH (08:49)
[2018-05-18] MEDS: PANTOPRAZOLE 40 MG TABLET.DR. PO SCH (08:49)
[2018-05-18] MEDS: PATCH REMOVAL. MC SCH (08:50)
[2018-05-18 11:32] VITALS: BP 88/41
[2018-05-18] MEDS ORDERED: IV NORMAL SALINE 1000ML BAG 1,000 ML IV ONE (11:45)
[2018-05-18] MEDS: traMADol 50 MG TABLET PO PRN ×2 (12:06→20:58)
[2018-05-18] MEDS: AMINO AC 3%/ELECTROLYTE/GLYCER 1,000 ML IV SCH (12:06)
--- NOTE | 2018-05-18 14:44 | PDOC ---
PROGRESS NOTES Chief Complaint Chief Complaint severe lower back pain with new L2 FX Old T12 and L1 vertebral compression fractures. Mild L4 vertebral compression fracture of indeterminate age. . GAIT instability MILD dementia PLAN: fu with dr. Smith, dr. Hernandez? pain control cont some home meds dvt ppx PTOT pt not much pain while walking, talked to dr. Smith, jose roberto just ob SW consult for possible SNF on Saturday, pt from assisted living facility low dose PPN given low po intake and 1l NS bolus talked to nurse about pain meds and encourage pt to eat History of Present Illness History of Present Illness ROS: no fever, chills, sob or chest pain CONT LOWER back PAIN, can walk told me today has pain, but not asking nurse for pain meds low po intake low bp today Vitals Vitals Vital Signs Date Time Temp Pulse Resp B/P (MAP) Pulse Ox O2 Delivery O2 Flow Rate FiO2 05/18/18 12:06 Room Air 05/18/18 11:32 97.5 75 16 88/41 (57) 94 97.5 Physical Exam General: Alert, Oriented X3, Cooperative Heart: Regular rate, Normal S1, Normal S2 Lungs: Clear Abdomen: Normal bowel sounds, Soft Extremities: No clubbing, No cyanosis Skin: No rashes Comment Review of Relevant I have reviewed the following items bubba (where applicable) has been applied. Labs Laboratory Tests Test 05/17/18 05:00 White Blood Count 5.1 x10^3/uL (4.0-11.0) Red Blood Count 3.86 x10^6/uL (3.50-5.40) Hemoglobin 12.2 g/dL (12.0-15.5) Hematocrit 35.6 % (36.0-47.0) Mean Corpuscular Volume 92 fL (79-100) Mean Corpuscular Hemoglobin 32 pg (25-35) Mean Corpuscular Hemoglobin Concent 34 g/dL (31-37) Red Cell Distribution Width 13.7 % (11.5-14.5) Platelet Count 231 x10^3/uL (140-400) Neutrophils (%) (Auto) 51 % (31-73) Lymphocytes (%) (Auto) 36 % (24-48) Monocytes (%) (Auto) 9 % (0-9) Eosinophils (%) (Auto) 2 % (0-3) Basophils (%) (Auto) 1 % (0-3) Neutrophils # (Auto) 2.6 x10^3uL (1.8-7.7) Lymphocytes # (Auto) 1.8 x10^3/uL (1.0-4.8) Monocytes # (Auto) 0.5 x10^3/uL (0.0-1.1) Eosinophils # (Auto) 0.1 x10^3/uL (0.0-0.7) Basophils # (Auto) 0.1 x10^3/uL (0.0-0.2) Sodium Level 141 mmol/L (136-145) Potassium Level 3.3 mmol/L (3.5-5.1) Chloride Level 104 mmol/L (98-107) Carbon Dioxide Level 29 mmol/L (21-32) Anion Gap 8 (6-14) Blood Urea Nitrogen 19 mg/dL (7-20) Creatinine 0.9 mg/dL (0.6-1.0) Estimated GFR (Cockcroft-Gault) 60.2 Glucose Level 110 mg/dL (70-99) Calcium Level 9.4 mg/dL (8.5-10.1) Medications Current Medications Ondansetron HCl (Zofran) 4 mg PRN Q8HRS PRN IV NAUSEA/VOMITING; Start 05/15/18 at 15:45; Stop 05/16/18 at 11:16; Status DC Morphine Sulfate (Morphine Sulfate) 2 mg PRN Q2HR PRN IV PAIN; Start 05/15/18 at 15:45; Stop 05/16/18 at 11:17; Status DC Acetaminophen (Tylenol) 650 mg PRN Q4HRS PRN PO FEVER Last administered on 05/15at 20:44; Start 05/15/18 at 15:45; Stop 05/16/18 at 11:17; Status DC Info (Do NOT chart on this placeholder) 1 each PRN 1X PRN MC SEE COMMENTS; Start 05/15/18 at 17:15; Status UNV Influenza Virus Vaccine (Afluria Trivalent [id number] Syringe) 0.5 ml ONCE ONCE VAX IM Last administered on 05/15/18at 17:44; Start 05/15/18 at 18:00; Stop at 18:01; Status DC Lidocaine (Lidoderm) 1 patch QHS TD Last administered on 05/17/18at 20:55; Start 05/15/18 at 21:00 Miscellaneous (Lidoderm Patch Removal) 1 ea DAILY MC Last administered on at 08:50; Start 05/16/18 at 09:00 Acetaminophen (Tylenol) 1,000 mg PRN Q6HRS PRN PO PAIN; Start 05/15/18 at 21:45 ; Stop 05/16/18 at 14:52; Status DC Aspirin (Ecotrin) 81 mg DAILY08 PO Last administered on 05/18/18at 08:49; Start 05/16/18 at 08:00 Calcitonin [place] (Miacalcin Nasal) 1 spray DAILY NS Last administered on at 08:49; Start 05/16/18 at 09:00 Calcium Carbonate/ Glycine (Oscal) 500 mg PRN Q6HRS PRN PO INDIGESTION; Start 05/15/18 at 21:45 Pantoprazole Sodium (Protonix) 40 mg DAILYAC PO Last administered on 05/18/18at 08:49; Start 05/16/18 at 07:30 Prochlorperazine Maleate (Compazine) 10 mg PRN Q4HRS PRN PO NAUSEA/VOMITING; Start 05/15/18 at 21:45 Senna/Docusate Sodium (Senna Plus) 1 tab PRN DAILY PRN PO CONSTIPATION; Start 05/15/18 at 21:45 Donepezil HCl (Aricept) 5 mg QHS PO Last administered on 05/17/18at 20:52; Start 05/16/18 at 21:00 Fentanyl Citrate (Fentanyl 2ml Vial) 25 mcg PRN Q4HRS PRN IV MODERATE PAIN; Start 05/15/18 at 21:45 Acetaminophen (Tylenol) 650 mg PRN Q6HRS PRN PO FEVER; Start 05/16/18 at 15:00 Ondansetron HCl (Zofran) 4 mg PRN Q6HRS PRN IV NAUSEA/VOMITING; Start 05/16/18 at 15:00 Morphine Sulfate (Morphine Sulfate) 2 mg PRN Q2HR PRN IV SEVERE PAIN; Start at 15:00 Tramadol HCl (Ultram) 50 mg PRN Q6HRS PRN PO MILD TO MODERATE PAIN Last administered on 05/18/18at 12:06; Start 05/16/18 at 15:00 Docusate Sodium (Colace) 100 mg PRN DAILY PRN PO HARD STOOLS; Start 05/16/18 at 15:00 Enoxaparin Sodium (Lovenox 40mg Syringe) 40 mg Q24H SQ Last administered on at 16:20; Start 05/16/18 at 16:00 Sodium Chloride 1,000 ml @ 1,000 mls/hr 1X ONCE IV Last administered on at 12:00; Start 05/18/18 at 11:45; Stop 05/18/18 at 12:44; Status DC Amino Acids/ Glycerin/ Electrolytes 1,000 ml @ 60 mls/hr [id number] IV Last administered on 05/18/18at 12:06; Start 05/18/18 at 11:45 Active Scripts Active Pantoprazole Sodium 40 Mg Tablet. 40 Mg PO DAILYAC 30 Days Reported Acetaminophen 500 Mg Tablet 1,000 Mg PO PRN Q6HRS PRN Pain reported <7/10 Do not exceed 3gm/day acetaminophen from all sources. Vitamin D3 (Cholecalciferol (Vitamin D3)) 50,000 Unit Capsule 50,000 Unit PO WEEKLY Saturday Tablet (Pnv Cmb#95/Ferrous Fumarate/Fa) 1 Each Tablet 1 Tab PO DAILY Donepezil Hcl 5 Mg Tablet 5 Mg PO HS Calcitonin-[place] (Calcitonin,[place],Synthetic) 3.7 Ml [place].pump 3.7 Ml NS DAILY Senexon-S Tablet (Sennosides/Docusate Sodium) 1 Each Tablet 1 Each PO PRN DAILY PRN Prochlorperazine Maleate 10 Mg Tablet 1 Tab PO PRN Q4HRS PRN Hydrocodone-Apap 7.5-325 (Hydrocodone Bit/Acetaminophen) 1 Each Tablet 1 Tab PO PRN Q6HRS PRN Calcium Carbonate 500 Mg Tablet 500 Mg PO PRN Q6HRS PRN Aspir 81 (Aspirin) 81 Mg Tablet.dr 81 Mg PO DAILY08 Vitals/I & O Vital Sign - Last 24 Hours 05/17/18 05/17/18 05/17/18 05/17/18 16:19 19:00 20:00 23:00 Temp 97.9 97.9 97.9 97.9 Pulse 74 98 Resp 18 16 B/P (MAP) 134/81 (98) 137/73 (94) Pulse Ox 96 97 O2 Delivery Room Air Room Air Room Air Room Air 05/18/18 05/18/18 05/18/18 05/18/18 03:00 07:10 07:42 11:32 Temp 97.6 97.5 97.5 97.6 97.5 97.5 Pulse 73 73 75 Resp 16 16 16 B/P (MAP) 130/82 (98) 115/52 (73) 88/41 (57) Pulse Ox 97 97 94 O2 Delivery Room Air Room Air Room Air Room Air 05/18/18 12:06 O2 Delivery Room Air Intake and Output 05/17/18 05/17/18 05/18/18 15:00 23:00 07:00 Intake Total 40 ml Balance 40 ml Nutrition Consultation Dietary Evaluation: Recommendations by RD: Increase Calorie Intake, Protein supplementation Comments: ensure enlive bid Expected Outcomes/Goals: to meet > 75% est nutr needs Malnutrition Findings: Body Fat Depletion (Non Severe: Mod to Severe Weight Status: Underweight FRANCIE REID MD May 18, 2018 14:44
[2018-05-18 15:05] VITALS: BP 152/65
[2018-05-18] MEDS: ENOXAPARIN 40 MG/0.4 ML SYRINGE. SQ SCH (16:08)
[2018-05-18 19:53] VITALS: BP 116/53
[2018-05-18] MEDS: DONEPEZIL HCL 5 MG TABLET. PO SCH (20:51)
[2018-05-18] MEDS: LIDOCAINE (700MG/PATCH) PATCH. TD SCH (20:52)
[2018-05-18 23:26] VITALS: BP 111/62
[2018-05-19 03:45] VITALS: BP 125/66
[2018-05-19] MEDS: AMINO AC 3%/ELECTROLYTE/GLYCER 1,000 ML IV SCH ×2 (04:28→21:05)
[2018-05-19] MEDS: PANTOPRAZOLE 40 MG TABLET.DR. PO SCH (06:09)
[2018-05-19 07:00] VITALS: BP 87/54
[2018-05-19 07:18] LABS: CALCIUM 9.7 mg/dL (8.5-10.1); CREATININE 0.6 mg/dL (0.6-1.0); GFR 96.2; POTASSIUM 3.6 mmol/L (3.5-5.1)
[2018-05-19 07:25] LABS: BASO # 0.1 x10^3/uL (0.0-0.2); BASO % 1 % (0-3); EOS # 0.1 x10^3/uL (0.0-0.7); EOS % 1 % (0-3); HEMATOCRIT 33.2 % (36.0-47.0); HEMOGLOBIN 11.4 g/dL (12.0-15.5); LYMPH % 32 % (24-48); MEAN CORPUSCULAR HEMOGLOBIN 32 pg (25-35); MEAN CORPUSCULAR HGB CONC 34 g/dL (31-37); MEAN CORPUSCULAR VOLUME 92 fL (79-100); MONO # 0.5 x10^3/uL (0.0-1.1); MONO % 8 % (0-9); NEUT # 3.7 x10^3uL (1.8-7.7); NEUT % 58 % (31-73); PLATELET COUNT 209 x10^3/uL (140-400); RED BLOOD COUNT 3.59 x10^6/uL (3.50-5.40); RED CELL DISTRIBUTION WIDTH 13.5 % (11.5-14.5); WHITE BLOOD COUNT 6.3 x10^3/uL (4.0-11.0)
[2018-05-19] MEDS: PATCH REMOVAL. MC SCH (09:00)
[2018-05-19] MEDS: traMADol 50 MG TABLET PO PRN ×2 (09:25→17:23)
[2018-05-19] MEDS: ASPIRIN ENTERIC COATED 81 MG TABLET.DR. PO SCH (09:25)
[2018-05-19] MEDS: CALCITONIN,SALMON NASAL 200 UNITS/SPRAY 3.7ML BOTTLE. NS SCH (09:26)
--- NOTE | 2018-05-19 09:41 | PDOC ---
PROGRESS NOTES Subjective Subjective No new complaints. Objective Objective Vital Signs Date Time Temp Pulse Resp B/P (MAP) Pulse Ox O2 Delivery O2 Flow Rate FiO2 05/19/18 09:25 95 Room Air 05/19/18 07:00 97.6 84 16 87/54 (65) 97.6 Intake and Output 05/19/18 07:00 Intake Total 180 ml Balance 180 ml Intake Oral 180 ml # Voids 2 Physical Exam Physical Exam She is supine in bed and denies any pain and she is getting up with therapy.She needs assistance with donning and doffing back support brace and with mobility and self care. Plan Plan of Care To ask social service to help with discharge planning if no change with her physical condition when compared to her pre existing state back to assisted living and if change and could not return to assisted living facility to nursing facility. Comment Review of Relevant I have reviewed the following items bubba (where applicable) has been applied. Labs Laboratory Tests Test 05/19/18 05:30 White Blood Count 6.3 x10^3/uL (4.0-11.0) Red Blood Count 3.59 x10^6/uL (3.50-5.40) Hemoglobin 11.4 g/dL (12.0-15.5) Hematocrit 33.2 % (36.0-47.0) Mean Corpuscular Volume 92 fL (79-100) Mean Corpuscular Hemoglobin 32 pg (25-35) Mean Corpuscular Hemoglobin Concent 34 g/dL (31-37) Red Cell Distribution Width 13.5 % (11.5-14.5) Platelet Count 209 x10^3/uL (140-400) Neutrophils (%) (Auto) 58 % (31-73) Lymphocytes (%) (Auto) 32 % (24-48) Monocytes (%) (Auto) 8 % (0-9) Eosinophils (%) (Auto) 1 % (0-3) Basophils (%) (Auto) 1 % (0-3) Neutrophils # (Auto) 3.7 x10^3uL (1.8-7.7) Lymphocytes # (Auto) 2.0 x10^3/uL (1.0-4.8) Monocytes # (Auto) 0.5 x10^3/uL (0.0-1.1) Eosinophils # (Auto) 0.1 x10^3/uL (0.0-0.7) Basophils # (Auto) 0.1 x10^3/uL (0.0-0.2) Sodium Level 141 mmol/L (136-145) Potassium Level 3.6 mmol/L (3.5-5.1) Chloride Level 106 mmol/L (98-107) Carbon Dioxide Level 27 mmol/L (21-32) Anion Gap 8 (6-14) Blood Urea Nitrogen 19 mg/dL (7-20) Creatinine 0.6 mg/dL (0.6-1.0) Estimated GFR (Cockcroft-Gault) 96.2 Glucose Level 97 mg/dL (70-99) Calcium Level 9.7 mg/dL (8.5-10.1) Laboratory Tests Test 05/19/18 05:30 White Blood Count 6.3 x10^3/uL (4.0-11.0) Red Blood Count 3.59 x10^6/uL (3.50-5.40) Hemoglobin 11.4 g/dL (12.0-15.5) Hematocrit 33.2 % (36.0-47.0) Mean Corpuscular Volume 92 fL (79-100) Mean Corpuscular Hemoglobin 32 pg (25-35) Mean Corpuscular Hemoglobin Concent 34 g/dL (31-37) Red Cell Distribution Width 13.5 % (11.5-14.5) Platelet Count 209 x10^3/uL (140-400) Neutrophils (%) (Auto) 58 % (31-73) Lymphocytes (%) (Auto) 32 % (24-48) Monocytes (%) (Auto) 8 % (0-9) Eosinophils (%) (Auto) 1 % (0-3) Basophils (%) (Auto) 1 % (0-3) Neutrophils # (Auto) 3.7 x10^3uL (1.8-7.7) Lymphocytes # (Auto) 2.0 x10^3/uL (1.0-4.8) Monocytes # (Auto) 0.5 x10^3/uL (0.0-1.1) Eosinophils # (Auto) 0.1 x10^3/uL (0.0-0.7) Basophils # (Auto) 0.1 x10^3/uL (0.0-0.2) Sodium Level 141 mmol/L (136-145) Potassium Level 3.6 mmol/L (3.5-5.1) Chloride Level 106 mmol/L (98-107) Carbon Dioxide Level 27 mmol/L (21-32) Anion Gap 8 (6-14) Blood Urea Nitrogen 19 mg/dL (7-20) Creatinine 0.6 mg/dL (0.6-1.0) Estimated GFR (Cockcroft-Gault) 96.2 Glucose Level 97 mg/dL (70-99) Calcium Level 9.7 mg/dL (8.5-10.1) Medications Current Medications Ondansetron HCl (Zofran) 4 mg PRN Q8HRS PRN IV NAUSEA/VOMITING; Start 05/15/18 at 15:45; Stop 05/16/18 at 11:16; Status DC Morphine Sulfate (Morphine Sulfate) 2 mg PRN Q2HR PRN IV PAIN; Start 05/15/18 at 15:45; Stop 05/16/18 at 11:17; Status DC Acetaminophen (Tylenol) 650 mg PRN Q4HRS PRN PO FEVER Last administered on 05/15at 20:44; Start 05/15/18 at 15:45; Stop 05/16/18 at 11:17; Status DC Info (Do NOT chart on this placeholder) 1 each PRN 1X PRN MC SEE COMMENTS; Start 05/15/18 at 17:15; Status UNV Influenza Virus Vaccine (Afluria Trivalent [id number] Syringe) 0.5 ml ONCE ONCE VAX IM Last administered on 05/15/18at 17:44; Start 05/15/18 at 18:00; Stop at 18:01; Status DC Lidocaine (Lidoderm) 1 patch QHS TD Last administered on 05/18/18at 20:52; Start 05/15/18 at 21:00 Miscellaneous (Lidoderm Patch Removal) 1 ea DAILY MC Last administered on at 09:00; Start 05/16/18 at 09:00 Acetaminophen (Tylenol) 1,000 mg PRN Q6HRS PRN PO PAIN; Start 05/15/18 at 21:45 ; Stop 05/16/18 at 14:52; Status DC Aspirin (Ecotrin) 81 mg DAILY08 PO Last administered on 05/19/18at 09:25; Start 05/16/18 at 08:00 Calcitonin [place] (Miacalcin Nasal) 1 spray DAILY NS Last administered on at 09:26; Start 05/16/18 at 09:00 Calcium Carbonate/ Glycine (Oscal) 500 mg PRN Q6HRS PRN PO INDIGESTION; Start 05/15/18 at 21:45 Pantoprazole Sodium (Protonix) 40 mg DAILYAC PO Last administered on 05/19/18at 06:09; Start 05/16/18 at 07:30 Prochlorperazine Maleate (Compazine) 10 mg PRN Q4HRS PRN PO NAUSEA/VOMITING; Start 05/15/18 at 21:45 Senna/Docusate Sodium (Senna Plus) 1 tab PRN DAILY PRN PO CONSTIPATION; Start 05/15/18 at 21:45 Donepezil HCl (Aricept) 5 mg QHS PO Last administered on 05/18/18at 20:51; Start 05/16/18 at 21:00 Fentanyl Citrate (Fentanyl 2ml Vial) 25 mcg PRN Q4HRS PRN IV MODERATE PAIN; Start 05/15/18 at 21:45 Acetaminophen (Tylenol) 650 mg PRN Q6HRS PRN PO FEVER; Start 05/16/18 at 15:00 Ondansetron HCl (Zofran) 4 mg PRN Q6HRS PRN IV NAUSEA/VOMITING; Start 05/16/18 at 15:00 Morphine Sulfate (Morphine Sulfate) 2 mg PRN Q2HR PRN IV SEVERE PAIN; Start at 15:00 Tramadol HCl (Ultram) 50 mg PRN Q6HRS PRN PO MILD TO MODERATE PAIN Last administered on 05/19/18at 09:25; Start 05/16/18 at 15:00 Docusate Sodium (Colace) 100 mg PRN DAILY PRN PO HARD STOOLS; Start 05/16/18 at 15:00 Enoxaparin Sodium (Lovenox 40mg Syringe) 40 mg Q24H SQ Last administered on at 16:08; Start 05/16/18 at 16:00 Sodium Chloride 1,000 ml @ 1,000 mls/hr 1X ONCE IV Last administered on at 12:00; Start 05/18/18 at 11:45; Stop 05/18/18 at 12:44; Status DC Amino Acids/ Glycerin/ Electrolytes 1,000 ml @ 60 mls/hr [id number] IV Last administered on 05/18/18at 12:06; Start 05/18/18 at 11:45 Active Scripts Active Pantoprazole Sodium 40 Mg Tablet. 40 Mg PO DAILYAC 30 Days Reported Acetaminophen 500 Mg Tablet 1,000 Mg PO PRN Q6HRS PRN Pain reported <7/10 Do not exceed 3gm/day acetaminophen from all sources. Vitamin D3 (Cholecalciferol (Vitamin D3)) 50,000 Unit Capsule 50,000 Unit PO WEEKLY Saturday Tablet (Pnv Cmb#95/Ferrous Fumarate/Fa) 1 Each Tablet 1 Tab PO DAILY Donepezil Hcl 5 Mg Tablet 5 Mg PO HS Calcitonin-[place] (Calcitonin,[place],Synthetic) 3.7 Ml [place].pump 3.7 Ml NS DAILY Senexon-S Tablet (Sennosides/Docusate Sodium) 1 Each Tablet 1 Each PO PRN DAILY PRN Prochlorperazine Maleate 10 Mg Tablet 1 Tab PO PRN Q4HRS PRN Hydrocodone-Apap 7.5-325 (Hydrocodone Bit/Acetaminophen) 1 Each Tablet 1 Tab PO PRN Q6HRS PRN Calcium Carbonate 500 Mg Tablet 500 Mg PO PRN Q6HRS PRN Aspir 81 (Aspirin) 81 Mg Tablet. 81 Mg PO DAILY08 Vitals/I & O Vital Sign - Last 24 Hours 05/18/18 05/18/18 05/18/18 05/18/18 11:32 12:06 15:05 19:53 Temp 97.5 97.9 98.7 97.5 97.9 98.7 Pulse 75 114 65 Resp 16 16 16 B/P (MAP) 88/41 (57) 152/65 (94) 116/53 (74) Pulse Ox 94 97 96 O2 Delivery Room Air Room Air Room Air Room Air 05/18/18 05/18/18 05/18/18 05/18/18 20:00 20:58 22:00 23:26 Temp 98.1 98.1 Pulse 66 Resp 20 20 18 B/P (MAP) 111/62 (78) Pulse Ox 96 97 97 O2 Delivery Room Air Room Air Room Air Room Air 05/19/18 05/19/18 05/19/18 03:45 07:00 09:25 Temp 98.3 97.6 98.3 97.6 Pulse 74 84 Resp 16 16 B/P (MAP) 125/66 (85) 87/54 (65) Pulse Ox 96 95 95 O2 Delivery Room Air Room Air Room Air Intake and Output 05/18/18 05/18/18 05/19/18 15:00 23:00 07:00 Intake Total 180 ml 0 ml Balance 180 ml 0 ml Nutrition Consultation Dietary Evaluation: Recommendations by RD: Increase Calorie Intake, Protein supplementation Comments: ensure enlive bid Expected Outcomes/Goals: to meet > 75% est nutr needs Malnutrition Findings: Body Fat Depletion (Non Severe: Mod to Severe Weight Status: Underweight JAIME GANNON MD May 19, 2018 09:41
--- NOTE | 2018-05-19 10:43 | PDOC ---
PROGRESS NOTES Chief Complaint Chief Complaint severe lower back pain with new L2 FX Old T12 and L1 vertebral compression fractures. Mild L4 vertebral compression fracture of indeterminate age. . GAIT instability MILD dementia PLAN: d/w dr. Smith, SNF placement ? pain control cont some home meds dvt ppx PTOT SW consult for possible SNF low dose PPN given low po intake and 1l NS bolus talked to nurse about pain meds and encourage pt to eat History of Present Illness History of Present Illness ROS: no fever, chills, sob or chest pain CONT LOWER back PAIN, can walk told me today has pain, but not asking nurse for pain meds low po intake low bp today Vitals Vitals Vital Signs Date Time Temp Pulse Resp B/P (MAP) Pulse Ox O2 Delivery O2 Flow Rate FiO2 05/19/18 09:25 95 Room Air 05/19/18 07:00 97.6 84 16 87/54 (65) 97.6 Physical Exam General: Alert, Oriented X3, Cooperative, mild distress Heart: Regular rate, Normal S1, Normal S2 Lungs: Clear Abdomen: Normal bowel sounds, Soft Extremities: No clubbing, No cyanosis Skin: No rashes, No significant lesion Labs LABS Laboratory Tests Test 05/19/18 05:30 White Blood Count 6.3 x10^3/uL (4.0-11.0) Red Blood Count 3.59 x10^6/uL (3.50-5.40) Hemoglobin 11.4 g/dL (12.0-15.5) Hematocrit 33.2 % (36.0-47.0) Mean Corpuscular Volume 92 fL (79-100) Mean Corpuscular Hemoglobin 32 pg (25-35) Mean Corpuscular Hemoglobin Concent 34 g/dL (31-37) Red Cell Distribution Width 13.5 % (11.5-14.5) Platelet Count 209 x10^3/uL (140-400) Neutrophils (%) (Auto) 58 % (31-73) Lymphocytes (%) (Auto) 32 % (24-48) Monocytes (%) (Auto) 8 % (0-9) Eosinophils (%) (Auto) 1 % (0-3) Basophils (%) (Auto) 1 % (0-3) Neutrophils # (Auto) 3.7 x10^3uL (1.8-7.7) Lymphocytes # (Auto) 2.0 x10^3/uL (1.0-4.8) Monocytes # (Auto) 0.5 x10^3/uL (0.0-1.1) Eosinophils # (Auto) 0.1 x10^3/uL (0.0-0.7) Basophils # (Auto) 0.1 x10^3/uL (0.0-0.2) Sodium Level 141 mmol/L (136-145) Potassium Level 3.6 mmol/L (3.5-5.1) Chloride Level 106 mmol/L (98-107) Carbon Dioxide Level 27 mmol/L (21-32) Anion Gap 8 (6-14) Blood Urea Nitrogen 19 mg/dL (7-20) Creatinine 0.6 mg/dL (0.6-1.0) Estimated GFR (Cockcroft-Gault) 96.2 Glucose Level 97 mg/dL (70-99) Calcium Level 9.7 mg/dL (8.5-10.1) Comment Review of Relevant I have reviewed the following items bubba (where applicable) has been applied. Labs Laboratory Tests Test 05/19/18 05:30 White Blood Count 6.3 x10^3/uL (4.0-11.0) Red Blood Count 3.59 x10^6/uL (3.50-5.40) Hemoglobin 11.4 g/dL (12.0-15.5) Hematocrit 33.2 % (36.0-47.0) Mean Corpuscular Volume 92 fL (79-100) Mean Corpuscular Hemoglobin 32 pg (25-35) Mean Corpuscular Hemoglobin Concent 34 g/dL (31-37) Red Cell Distribution Width 13.5 % (11.5-14.5) Platelet Count 209 x10^3/uL (140-400) Neutrophils (%) (Auto) 58 % (31-73) Lymphocytes (%) (Auto) 32 % (24-48) Monocytes (%) (Auto) 8 % (0-9) Eosinophils (%) (Auto) 1 % (0-3) Basophils (%) (Auto) 1 % (0-3) Neutrophils # (Auto) 3.7 x10^3uL (1.8-7.7) Lymphocytes # (Auto) 2.0 x10^3/uL (1.0-4.8) Monocytes # (Auto) 0.5 x10^3/uL (0.0-1.1) Eosinophils # (Auto) 0.1 x10^3/uL (0.0-0.7) Basophils # (Auto) 0.1 x10^3/uL (0.0-0.2) Sodium Level 141 mmol/L (136-145) Potassium Level 3.6 mmol/L (3.5-5.1) Chloride Level 106 mmol/L (98-107) Carbon Dioxide Level 27 mmol/L (21-32) Anion Gap 8 (6-14) Blood Urea Nitrogen 19 mg/dL (7-20) Creatinine 0.6 mg/dL (0.6-1.0) Estimated GFR (Cockcroft-Gault) 96.2 Glucose Level 97 mg/dL (70-99) Calcium Level 9.7 mg/dL (8.5-10.1) Laboratory Tests Test 05/19/18 05:30 White Blood Count 6.3 x10^3/uL (4.0-11.0) Red Blood Count 3.59 x10^6/uL (3.50-5.40) Hemoglobin 11.4 g/dL (12.0-15.5) Hematocrit 33.2 % (36.0-47.0) Mean Corpuscular Volume 92 fL (79-100) Mean Corpuscular Hemoglobin 32 pg (25-35) Mean Corpuscular Hemoglobin Concent 34 g/dL (31-37) Red Cell Distribution Width 13.5 % (11.5-14.5) Platelet Count 209 x10^3/uL (140-400) Neutrophils (%) (Auto) 58 % (31-73) Lymphocytes (%) (Auto) 32 % (24-48) Monocytes (%) (Auto) 8 % (0-9) Eosinophils (%) (Auto) 1 % (0-3) Basophils (%) (Auto) 1 % (0-3) Neutrophils # (Auto) 3.7 x10^3uL (1.8-7.7) Lymphocytes # (Auto) 2.0 x10^3/uL (1.0-4.8) Monocytes # (Auto) 0.5 x10^3/uL (0.0-1.1) Eosinophils # (Auto) 0.1 x10^3/uL (0.0-0.7) Basophils # (Auto) 0.1 x10^3/uL (0.0-0.2) Sodium Level 141 mmol/L (136-145) Potassium Level 3.6 mmol/L (3.5-5.1) Chloride Level 106 mmol/L (98-107) Carbon Dioxide Level 27 mmol/L (21-32) Anion Gap 8 (6-14) Blood Urea Nitrogen 19 mg/dL (7-20) Creatinine 0.6 mg/dL (0.6-1.0) Estimated GFR (Cockcroft-Gault) 96.2 Glucose Level 97 mg/dL (70-99) Calcium Level 9.7 mg/dL (8.5-10.1) Medications Current Medications Ondansetron HCl (Zofran) 4 mg PRN Q8HRS PRN IV NAUSEA/VOMITING; Start 05/15/18 at 15:45; Stop 05/16/18 at 11:16; Status DC Morphine Sulfate (Morphine Sulfate) 2 mg PRN Q2HR PRN IV PAIN; Start 05/15/18 at 15:45; Stop 05/16/18 at 11:17; Status DC Acetaminophen (Tylenol) 650 mg PRN Q4HRS PRN PO FEVER Last administered on 05/15at 20:44; Start 05/15/18 at 15:45; Stop 05/16/18 at 11:17; Status DC Info (Do NOT chart on this placeholder) 1 each PRN 1X PRN MC SEE COMMENTS; Start 05/15/18 at 17:15; Status UNV Influenza Virus Vaccine (Afluria Trivalent [id number] Syringe) 0.5 ml ONCE ONCE VAX IM Last administered on 05/15/18at 17:44; Start 05/15/18 at 18:00; Stop at 18:01; Status DC Lidocaine (Lidoderm) 1 patch QHS TD Last administered on 05/18/18at 20:52; Start 05/15/18 at 21:00 Miscellaneous (Lidoderm Patch Removal) 1 ea DAILY MC Last administered on at 09:00; Start 05/16/18 at 09:00 Acetaminophen (Tylenol) 1,000 mg PRN Q6HRS PRN PO PAIN; Start 05/15/18 at 21:45 ; Stop 05/16/18 at 14:52; Status DC Aspirin (Ecotrin) 81 mg DAILY08 PO Last administered on 05/19/18at 09:25; Start 05/16/18 at 08:00 Calcitonin [employer] (Miacalcin Nasal) 1 spray DAILY NS Last administered on at 09:26; Start 05/16/18 at 09:00 Calcium Carbonate/ Glycine (Oscal) 500 mg PRN Q6HRS PRN PO INDIGESTION; Start 05/15/18 at 21:45 Pantoprazole Sodium (Protonix) 40 mg DAILYAC PO Last administered on 05/19/18at 06:09; Start 05/16/18 at 07:30 Prochlorperazine Maleate (Compazine) 10 mg PRN Q4HRS PRN PO NAUSEA/VOMITING; Start 05/15/18 at 21:45 Senna/Docusate Sodium (Senna Plus) 1 tab PRN DAILY PRN PO CONSTIPATION; Start 05/15/18 at 21:45 Donepezil HCl (Aricept) 5 mg QHS PO Last administered on 05/18/18at 20:51; Start 05/16/18 at 21:00 Fentanyl Citrate (Fentanyl 2ml Vial) 25 mcg PRN Q4HRS PRN IV MODERATE PAIN; Start 05/15/18 at 21:45 Acetaminophen (Tylenol) 650 mg PRN Q6HRS PRN PO FEVER; Start 05/16/18 at 15:00 Ondansetron HCl (Zofran) 4 mg PRN Q6HRS PRN IV NAUSEA/VOMITING; Start 05/16/18 at 15:00 Morphine Sulfate (Morphine Sulfate) 2 mg PRN Q2HR PRN IV SEVERE PAIN; Start at 15:00 Tramadol HCl (Ultram) 50 mg PRN Q6HRS PRN PO MILD TO MODERATE PAIN Last administered on 05/19/18at 09:25; Start 05/16/18 at 15:00 Docusate Sodium (Colace) 100 mg PRN DAILY PRN PO HARD STOOLS; Start 05/16/18 at 15:00 Enoxaparin Sodium (Lovenox 40mg Syringe) 40 mg Q24H SQ Last administered on at 16:08; Start 05/16/18 at 16:00 Sodium Chloride 1,000 ml @ 1,000 mls/hr 1X ONCE IV Last administered on at 12:00; Start 05/18/18 at 11:45; Stop 05/18/18 at 12:44; Status DC Amino Acids/ Glycerin/ Electrolytes 1,000 ml @ 60 mls/hr [id number] IV Last administered on 05/18/18at 12:06; Start 05/18/18 at 11:45 Active Scripts Active Pantoprazole Sodium 40 Mg Tablet. 40 Mg PO DAILYAC 30 Days Reported Acetaminophen 500 Mg Tablet 1,000 Mg PO PRN Q6HRS PRN Pain reported <7/10 Do not exceed 3gm/day acetaminophen from all sources. Vitamin D3 (Cholecalciferol (Vitamin D3)) 50,000 Unit Capsule 50,000 Unit PO WEEKLY Saturday Tablet (Pnv Cmb#95/Ferrous Fumarate/Fa) 1 Each Tablet 1 Tab PO DAILY Donepezil Hcl 5 Mg Tablet 5 Mg PO HS Calcitonin-[employer] (Calcitonin,[employer],Synthetic) 3.7 Ml [place].pump 3.7 Ml NS DAILY Senexon-S Tablet (Sennosides/Docusate Sodium) 1 Each Tablet 1 Each PO PRN DAILY PRN Prochlorperazine Maleate 10 Mg Tablet 1 Tab PO PRN Q4HRS PRN Hydrocodone-Apap 7.5-325 (Hydrocodone Bit/Acetaminophen) 1 Each Tablet 1 Tab PO PRN Q6HRS PRN Calcium Carbonate 500 Mg Tablet 500 Mg PO PRN Q6HRS PRN Aspir 81 (Aspirin) 81 Mg Tablet. 81 Mg PO DAILY08 Vitals/I & O Vital Sign - Last 24 Hours 05/18/18 05/18/18 05/18/18 05/18/18 11:32 12:06 15:05 19:53 Temp 97.5 97.9 98.7 97.5 97.9 98.7 Pulse 75 114 65 Resp 16 16 16 B/P (MAP) 88/41 (57) 152/65 (94) 116/53 (74) Pulse Ox 94 97 96 O2 Delivery Room Air Room Air Room Air Room Air 05/18/18 05/18/18 05/18/18 05/18/18 20:00 20:58 22:00 23:26 Temp 98.1 98.1 Pulse 66 Resp 20 20 18 B/P (MAP) 111/62 (78) Pulse Ox 96 97 97 O2 Delivery Room Air Room Air Room Air Room Air 05/19/18 05/19/18 05/19/18 05/19/18 03:45 07:00 07:55 09:25 Temp 98.3 97.6 98.3 97.6 Pulse 74 84 Resp 16 16 B/P (MAP) 125/66 (85) 87/54 (65) Pulse Ox 96 95 95 O2 Delivery Room Air Room Air Room Air Room Air Intake and Output 05/18/18 05/18/18 05/19/18 15:00 23:00 07:00 Intake Total 180 ml 0 ml Balance 180 ml 0 ml Nutrition Consultation Dietary Evaluation: Recommendations by RD: Increase Calorie Intake, Protein supplementation Comments: ensure enlive bid Expected Outcomes/Goals: to meet > 75% est nutr needs Malnutrition Findings: Body Fat Depletion (Non Severe: Mod to Severe Weight Status: Underweight ADALBERTO LAGUNAS MD May 19, 2018 10:43
[2018-05-19 11:00] VITALS: BP 126/87
[2018-05-19] MEDS: ACETAMINOPHEN 325 MG TABLET. PO PRN ×2 (14:35→20:46)
[2018-05-19 15:00] VITALS: BP 120/88
[2018-05-19] MEDS: ENOXAPARIN 40 MG/0.4 ML SYRINGE. SQ SCH (16:19)
[2018-05-19 19:00] VITALS: BP 121/66
[2018-05-19] MEDS: DONEPEZIL HCL 5 MG TABLET. PO SCH (20:45)
[2018-05-19] MEDS: LIDOCAINE (700MG/PATCH) PATCH. TD SCH (20:46)
[2018-05-19 23:00] VITALS: BP 116/56
[2018-05-20 03:00] VITALS: BP 129/74
[2018-05-20 07:00] VITALS: BP 124/48
[2018-05-20] MEDS: PANTOPRAZOLE 40 MG TABLET.DR. PO SCH (08:25)
[2018-05-20] MEDS: ASPIRIN ENTERIC COATED 81 MG TABLET.DR. PO SCH (08:25)
[2018-05-20] MEDS: CALCITONIN,SALMON NASAL 200 UNITS/SPRAY 3.7ML BOTTLE. NS SCH (08:26)
[2018-05-20] MEDS: PATCH REMOVAL. MC SCH (08:27)
--- NOTE | 2018-05-20 09:03 | PDOC ---
PROGRESS NOTES Subjective Subjective No new complaints. Objective Objective Vital Signs Date Time Temp Pulse Resp B/P (MAP) Pulse Ox O2 Delivery O2 Flow Rate FiO2 05/20/18 07:32 Room Air 05/20/18 07:00 97.5 61 18 124/48 (73) 97 97.5 Intake and Output 05/20/18 07:00 Intake Total 250 ml Output Total 0 ml Balance 250 ml Intake Oral 250 ml Output Urine Total 0 ml # Voids 2 Physical Exam Physical Exam She is supine in bed and she continues with dementia but she did get up and walked with physical therapy with supervision to minimal assistance using a roller walker. Plan [facility]. Comment Review of Relevant I have reviewed the following items bubba (where applicable) has been applied. Labs Laboratory Tests Test 05/19/18 05:30 White Blood Count 6.3 x10^3/uL (4.0-11.0) Red Blood Count 3.59 x10^6/uL (3.50-5.40) Hemoglobin 11.4 g/dL (12.0-15.5) Hematocrit 33.2 % (36.0-47.0) Mean Corpuscular Volume 92 fL (79-100) Mean Corpuscular Hemoglobin 32 pg (25-35) Mean Corpuscular Hemoglobin Concent 34 g/dL (31-37) Red Cell Distribution Width 13.5 % (11.5-14.5) Platelet Count 209 x10^3/uL (140-400) Neutrophils (%) (Auto) 58 % (31-73) Lymphocytes (%) (Auto) 32 % (24-48) Monocytes (%) (Auto) 8 % (0-9) Eosinophils (%) (Auto) 1 % (0-3) Basophils (%) (Auto) 1 % (0-3) Neutrophils # (Auto) 3.7 x10^3uL (1.8-7.7) Lymphocytes # (Auto) 2.0 x10^3/uL (1.0-4.8) Monocytes # (Auto) 0.5 x10^3/uL (0.0-1.1) Eosinophils # (Auto) 0.1 x10^3/uL (0.0-0.7) Basophils # (Auto) 0.1 x10^3/uL (0.0-0.2) Sodium Level 141 mmol/L (136-145) Potassium Level 3.6 mmol/L (3.5-5.1) Chloride Level 106 mmol/L (98-107) Carbon Dioxide Level 27 mmol/L (21-32) Anion Gap 8 (6-14) Blood Urea Nitrogen 19 mg/dL (7-20) Creatinine 0.6 mg/dL (0.6-1.0) Estimated GFR (Cockcroft-Gault) 96.2 Glucose Level 97 mg/dL (70-99) Calcium Level 9.7 mg/dL (8.5-10.1) Medications Current Medications Ondansetron HCl (Zofran) 4 mg PRN Q8HRS PRN IV NAUSEA/VOMITING; Start 05/15/18 at 15:45; Stop 05/16/18 at 11:16; Status DC Morphine Sulfate (Morphine Sulfate) 2 mg PRN Q2HR PRN IV PAIN; Start 05/15/18 at 15:45; Stop 05/16/18 at 11:17; Status DC Acetaminophen (Tylenol) 650 mg PRN Q4HRS PRN PO FEVER Last administered on 05/15at 20:44; Start 05/15/18 at 15:45; Stop 05/16/18 at 11:17; Status DC Info (Do NOT chart on this placeholder) 1 each PRN 1X PRN MC SEE COMMENTS; Start 05/15/18 at 17:15; Status UNV Influenza Virus Vaccine (Afluria Trivalent [id number] Syringe) 0.5 ml ONCE ONCE VAX IM Last administered on 05/15/18at 17:44; Start 05/15/18 at 18:00; Stop at 18:01; Status DC Lidocaine (Lidoderm) 1 patch QHS TD Last administered on 05/19/18at 20:46; Start 05/15/18 at 21:00 Miscellaneous (Lidoderm Patch Removal) 1 ea DAILY MC Last administered on at 08:27; Start 05/16/18 at 09:00 Acetaminophen (Tylenol) 1,000 mg PRN Q6HRS PRN PO PAIN; Start 05/15/18 at 21:45 ; Stop 05/16/18 at 14:52; Status DC Aspirin (Ecotrin) 81 mg DAILY08 PO Last administered on 05/20/18at 08:25; Start 05/16/18 at 08:00 Calcitonin [place] (Miacalcin Nasal) 1 spray DAILY NS Last administered on at 08:26; Start 05/16/18 at 09:00 Calcium Carbonate/ Glycine (Oscal) 500 mg PRN Q6HRS PRN PO INDIGESTION; Start 05/15/18 at 21:45 Pantoprazole Sodium (Protonix) 40 mg DAILYAC PO Last administered on 05/20/18at 08:25; Start 05/16/18 at 07:30 Prochlorperazine Maleate (Compazine) 10 mg PRN Q4HRS PRN PO NAUSEA/VOMITING; Start 05/15/18 at 21:45 Senna/Docusate Sodium (Senna Plus) 1 tab PRN DAILY PRN PO CONSTIPATION; Start 05/15/18 at 21:45 Donepezil HCl (Aricept) 5 mg QHS PO Last administered on 05/19/18at 20:45; Start 05/16/18 at 21:00 Fentanyl Citrate (Fentanyl 2ml Vial) 25 mcg PRN Q4HRS PRN IV MODERATE PAIN; Start 05/15/18 at 21:45 Acetaminophen (Tylenol) 650 mg PRN Q6HRS PRN PO FEVER Last administered on 05/19at 20:46; Start 05/16/18 at 15:00 Ondansetron HCl (Zofran) 4 mg PRN Q6HRS PRN IV NAUSEA/VOMITING; Start 05/16/18 at 15:00 Morphine Sulfate (Morphine Sulfate) 2 mg PRN Q2HR PRN IV SEVERE PAIN; Start at 15:00 Tramadol HCl (Ultram) 50 mg PRN Q6HRS PRN PO MILD TO MODERATE PAIN Last administered on 05/19/18at 17:23; Start 05/16/18 at 15:00 Docusate Sodium (Colace) 100 mg PRN DAILY PRN PO HARD STOOLS; Start 05/16/18 at 15:00 Enoxaparin Sodium (Lovenox 40mg Syringe) 40 mg Q24H SQ Last administered on at 16:19; Start 05/16/18 at 16:00 Sodium Chloride 1,000 ml @ 1,000 mls/hr 1X ONCE IV Last administered on at 12:00; Start 05/18/18 at 11:45; Stop 05/18/18 at 12:44; Status DC Amino Acids/ Glycerin/ Electrolytes 1,000 ml @ 60 mls/hr [id number] IV Last administered on 05/18/18at 12:06; Start 05/18/18 at 11:45 Active Scripts Active Pantoprazole Sodium 40 Mg Tablet. 40 Mg PO DAILYAC 30 Days Reported Acetaminophen 500 Mg Tablet 1,000 Mg PO PRN Q6HRS PRN Pain reported <7/10 Do not exceed 3gm/day acetaminophen from all sources. Vitamin D3 (Cholecalciferol (Vitamin D3)) 50,000 Unit Capsule 50,000 Unit PO WEEKLY Saturday Tablet (Pnv Cmb#95/Ferrous Fumarate/Fa) 1 Each Tablet 1 Tab PO DAILY Donepezil Hcl 5 Mg Tablet 5 Mg PO HS Calcitonin-[place] (Calcitonin,[place],Synthetic) 3.7 Ml [place].pump 3.7 Ml NS DAILY Senexon-S Tablet (Sennosides/Docusate Sodium) 1 Each Tablet 1 Each PO PRN DAILY PRN Prochlorperazine Maleate 10 Mg Tablet 1 Tab PO PRN Q4HRS PRN Hydrocodone-Apap 7.5-325 (Hydrocodone Bit/Acetaminophen) 1 Each Tablet 1 Tab PO PRN Q6HRS PRN Calcium Carbonate 500 Mg Tablet 500 Mg PO PRN Q6HRS PRN Aspir 81 (Aspirin) 81 Mg Tablet. 81 Mg PO DAILY08 Vitals/I & O Vital Sign - Last 24 Hours 05/19/18 05/19/18 05/19/18 05/19/18 09:25 11:00 15:00 17:23 Temp 97.7 97.2 97.7 97.2 Pulse 92 90 Resp 16 18 B/P (MAP) 126/87 (100) 120/88 (99) Pulse Ox 95 97 97 97 O2 Delivery Room Air Room Air Room Air Room Air 05/19/18 05/19/18 05/19/18 05/19/18 18:25 19:00 20:00 23:00 Temp 98.1 98.2 98.1 98.2 Pulse 74 63 Resp 16 15 B/P (MAP) 121/66 (84) 116/56 (76) Pulse Ox 97 91 97 O2 Delivery Room Air Room Air Room Air Room Air 05/20/18 05/20/18 05/20/18 03:00 07:00 07:32 Temp 98.2 97.5 98.2 97.5 Pulse 68 61 Resp 16 18 B/P (MAP) 129/74 (92) 124/48 (73) Pulse Ox 96 97 O2 Delivery Room Air Room Air Room Air Intake and Output 05/19/18 05/19/18 05/20/18 15:00 23:00 07:00 Intake Total 250 ml Output Total 0 ml Balance 250 ml Nutrition Consultation Dietary Evaluation: Recommendations by RD: Increase Calorie Intake, Protein supplementation Comments: continue ensure enlive bid Expected Outcomes/Goals: to meet > 75% est nutr needs- met at times, goal ongoing Malnutrition Findings: Body Fat Depletion (Non Severe: Mod to Severe Weight Status: Underweight JAIME GANNON MD May 20, 2018 09:03
[2018-05-20] MEDS: AMINO AC 3%/ELECTROLYTE/GLYCER 1,000 ML IV SCH (09:39)
--- NOTE | 2018-05-20 10:57 | PDOC ---
PROGRESS NOTES Chief Complaint Chief Complaint severe lower back pain with new L2 FX Old T12 and L1 vertebral compression fractures. Mild L4 vertebral compression fracture of indeterminate age. . GAIT instability MILD dementia PLAN: d/w dr. Smith, SNF placement [facility] pain control cont some home meds dvt ppx PTOT low dose PPN given low po intake and 1l NS bolus talked to nurse about pain meds and encourage pt to eat History of Present Illness History of Present Illness ROS: no fever, chills, sob or chest pain CONT LOWER back PAIN, can walk told me today has pain, but not asking nurse for pain meds low po intake low bp today Vitals Vitals Vital Signs Date Time Temp Pulse Resp B/P (MAP) Pulse Ox O2 Delivery O2 Flow Rate FiO2 05/20/18 07:32 Room Air 05/20/18 07:00 97.5 61 18 124/48 (73) 97 97.5 Physical Exam General: Alert, Oriented X3, Cooperative, No acute distress, mild distress Heart: Regular rate, Normal S1, Normal S2, No murmurs Lungs: Clear Abdomen: Normal bowel sounds, Soft Extremities: No clubbing, No cyanosis Skin: No rashes, No significant lesion Comment Review of Relevant I have reviewed the following items bubba (where applicable) has been applied. Labs Laboratory Tests Test 05/19/18 05:30 White Blood Count 6.3 x10^3/uL (4.0-11.0) Red Blood Count 3.59 x10^6/uL (3.50-5.40) Hemoglobin 11.4 g/dL (12.0-15.5) Hematocrit 33.2 % (36.0-47.0) Mean Corpuscular Volume 92 fL (79-100) Mean Corpuscular Hemoglobin 32 pg (25-35) Mean Corpuscular Hemoglobin Concent 34 g/dL (31-37) Red Cell Distribution Width 13.5 % (11.5-14.5) Platelet Count 209 x10^3/uL (140-400) Neutrophils (%) (Auto) 58 % (31-73) Lymphocytes (%) (Auto) 32 % (24-48) Monocytes (%) (Auto) 8 % (0-9) Eosinophils (%) (Auto) 1 % (0-3) Basophils (%) (Auto) 1 % (0-3) Neutrophils # (Auto) 3.7 x10^3uL (1.8-7.7) Lymphocytes # (Auto) 2.0 x10^3/uL (1.0-4.8) Monocytes # (Auto) 0.5 x10^3/uL (0.0-1.1) Eosinophils # (Auto) 0.1 x10^3/uL (0.0-0.7) Basophils # (Auto) 0.1 x10^3/uL (0.0-0.2) Sodium Level 141 mmol/L (136-145) Potassium Level 3.6 mmol/L (3.5-5.1) Chloride Level 106 mmol/L (98-107) Carbon Dioxide Level 27 mmol/L (21-32) Anion Gap 8 (6-14) Blood Urea Nitrogen 19 mg/dL (7-20) Creatinine 0.6 mg/dL (0.6-1.0) Estimated GFR (Cockcroft-Gault) 96.2 Glucose Level 97 mg/dL (70-99) Calcium Level 9.7 mg/dL (8.5-10.1) Medications Current Medications Ondansetron HCl (Zofran) 4 mg PRN Q8HRS PRN IV NAUSEA/VOMITING; Start 05/15/18 at 15:45; Stop 05/16/18 at 11:16; Status DC Morphine Sulfate (Morphine Sulfate) 2 mg PRN Q2HR PRN IV PAIN; Start 05/15/18 at 15:45; Stop 05/16/18 at 11:17; Status DC Acetaminophen (Tylenol) 650 mg PRN Q4HRS PRN PO FEVER Last administered on 05/15at 20:44; Start 05/15/18 at 15:45; Stop 05/16/18 at 11:17; Status DC Info (Do NOT chart on this placeholder) 1 each PRN 1X PRN MC SEE COMMENTS; Start 05/15/18 at 17:15; Status UNV Influenza Virus Vaccine (Afluria Trivalent [id number] Syringe) 0.5 ml ONCE ONCE VAX IM Last administered on 05/15/18at 17:44; Start 05/15/18 at 18:00; Stop at 18:01; Status DC Lidocaine (Lidoderm) 1 patch QHS TD Last administered on 05/19/18at 20:46; Start 05/15/18 at 21:00 Miscellaneous (Lidoderm Patch Removal) 1 ea DAILY MC Last administered on 08:27; Start 05/16/18 at 09:00 Acetaminophen (Tylenol) 1,000 mg PRN Q6HRS PRN PO PAIN; Start 05/15/18 at 21:45 ; Stop 05/16/18 at 14:52; Status DC Aspirin (Ecotrin) 81 mg DAILY08 PO Last administered on 05/20/18 08:25; Start 05/16/18 at 08:00 Calcitonin [place] (Miacalcin Nasal) 1 spray DAILY NS Last administered on 08:26; Start 05/16/18 at 09:00 Calcium Carbonate/ Glycine (Oscal) 500 mg PRN Q6HRS PRN PO INDIGESTION; Start 05/15/18 at 21:45 Pantoprazole Sodium (Protonix) 40 mg DAILYAC PO Last administered on 05/20/18at 08:25; Start 05/16/18 at 07:30 Prochlorperazine Maleate (Compazine) 10 mg PRN Q4HRS PRN PO NAUSEA/VOMITING; Start 05/15/18 at 21:45 Senna/Docusate Sodium (Senna Plus) 1 tab PRN DAILY PRN PO CONSTIPATION; Start 05/15/18 at 21:45 Donepezil HCl (Aricept) 5 mg QHS PO Last administered on 05/19/18at 20:45; Start 05/16/18 at 21:00 Fentanyl Citrate (Fentanyl 2ml Vial) 25 mcg PRN Q4HRS PRN IV MODERATE PAIN; Start 05/15/18 at 21:45 Acetaminophen (Tylenol) 650 mg PRN Q6HRS PRN PO FEVER Last administered on 05/19at 20:46; Start 05/16/18 at 15:00 Ondansetron HCl (Zofran) 4 mg PRN Q6HRS PRN IV NAUSEA/VOMITING; Start 05/16/18 at 15:00 Morphine Sulfate (Morphine Sulfate) 2 mg PRN Q2HR PRN IV SEVERE PAIN; Start at 15:00 Tramadol HCl (Ultram) 50 mg PRN Q6HRS PRN PO MILD TO MODERATE PAIN Last administered on 05/19/18at 17:23; Start 05/16/18 at 15:00 Docusate Sodium (Colace) 100 mg PRN DAILY PRN PO HARD STOOLS; Start 05/16/18 at 15:00 Enoxaparin Sodium (Lovenox 40mg Syringe) 40 mg Q24H SQ Last administered on at 16:19; Start 05/16/18 at 16:00 Sodium Chloride 1,000 ml @ 1,000 mls/hr 1X ONCE IV Last administered on at 12:00; Start 05/18/18 at 11:45; Stop 05/18/18 at 12:44; Status DC Amino Acids/ Glycerin/ Electrolytes 1,000 ml @ 60 mls/hr [id number] IV Last administered on 05/18/18at 12:06; Start 05/18/18 at 11:45 Active Scripts Active Pantoprazole Sodium 40 Mg Tablet.dr 40 Mg PO DAILYAC 30 Days Reported Acetaminophen 500 Mg Tablet 1,000 Mg PO PRN Q6HRS PRN Pain reported <7/10 Do not exceed 3gm/day acetaminophen from all sources. Vitamin D3 (Cholecalciferol (Vitamin D3)) 50,000 Unit Capsule 50,000 Unit PO WEEKLY Saturday Tablet (Pnv Cmb#95/Ferrous Fumarate/Fa) 1 Each Tablet 1 Tab PO DAILY Donepezil Hcl 5 Mg Tablet 5 Mg PO HS Calcitonin-[place] (Calcitonin,[place],Synthetic) 3.7 Ml [place].pump 3.7 Ml NS DAILY Senexon-S Tablet (Sennosides/Docusate Sodium) 1 Each Tablet 1 Each PO PRN DAILY PRN Prochlorperazine Maleate 10 Mg Tablet 1 Tab PO PRN Q4HRS PRN Hydrocodone-Apap 7.5-325 (Hydrocodone Bit/Acetaminophen) 1 Each Tablet 1 Tab PO PRN Q6HRS PRN Calcium Carbonate 500 Mg Tablet 500 Mg PO PRN Q6HRS PRN Aspir 81 (Aspirin) 81 Mg Tablet.dr 81 Mg PO DAILY08 Vitals/I & O Vital Sign - Last 24 Hours 05/19/18 05/19/18 05/19/18 05/19/18 11:00 15:00 17:23 18:25 Temp 97.7 97.2 97.7 97.2 Pulse 92 90 Resp 16 18 B/P (MAP) 126/87 (100) 120/88 (99) Pulse Ox 97 97 97 97 O2 Delivery Room Air Room Air Room Air Room Air 05/19/18 05/19/18 05/19/18 05/20/18 19:00 20:00 23:00 03:00 Temp 98.1 98.2 98.2 98.1 98.2 98.2 Pulse 74 63 68 Resp 16 15 16 B/P (MAP) 121/66 (84) 116/56 (76) 129/74 (92) Pulse Ox 91 97 96 O2 Delivery Room Air Room Air Room Air Room Air 05/20/18 05/20/18 07:00 07:32 Temp 97.5 97.5 Pulse 61 Resp 18 B/P (MAP) 124/48 (73) Pulse Ox 97 O2 Delivery Room Air Room Air Intake and Output 05/19/18 05/19/18 05/20/18 15:00 23:00 07:00 Intake Total 250 ml Output Total 0 ml Balance 250 ml Nutrition Consultation Dietary Evaluation: Recommendations by RD: Increase Calorie Intake, Protein supplementation Comments: continue ensure enlive bid Expected Outcomes/Goals: to meet > 75% est nutr needs- met at times, goal ongoing Malnutrition Findings: Body Fat Depletion (Non Severe: Mod to Severe Weight Status: Underweight ADALBERTO LAGUNAS MD May 20, 2018 10:57
[2018-05-20 11:00] VITALS: BP 122/68
[2018-05-20] MEDS: ENOXAPARIN 40 MG/0.4 ML SYRINGE. SQ SCH (14:20)
--- NOTE | 2018-05-20 14:30 | PDOC3 ---
Discharge Summary Date of Admission: May 15, 2018 Date of Discharge: May 20, 2018 Follow-Up: 1-2 days Admitting Diagnosis comment: DISCHARGE DIAGNOSIS Chief Complaint severe lower back pain with new L2 FX Old T12 and L1 vertebral compression fractures. Mild L4 vertebral compression fracture of indeterminate age. . GAIT instability MILD dementia PLAN: d/w dr. Smith, SNF placement [facility] pain control cont some home meds dvt ppx PTOT encourage pt to eat History of Present Illness History of Present Illness ROS: no fever, chills, sob or chest pain CONT LOWER back PAIN, can walk told me today has pain, but not asking nurse for pain meds low po intake Vitals Vitals Vital Signs Date Time Temp Pulse Resp B/P (MAP) Pulse Ox O2 Delivery O2 Flow Rate FiO2 05/20/18 07:32 Room Air 05/20/18 07:00 97.5 61 18 124/48 (73) 97 97.5 Physical Exam General: Alert, Oriented X3, Cooperative, No acute distress, mild distress Heart: Regular rate, Normal S1, Normal S2, No murmurs Lungs: Clear Abdomen: Normal bowel sounds, Soft Extremities: No clubbing, No cyanosis Skin: No rashes, No significant lesion Brief Hospital Course Ms. Zuñiga is a 78 old [sex] who presented with [ ] Discharge Medications Current Medications Ondansetron HCl (Zofran) 4 mg PRN Q8HRS PRN IV NAUSEA/VOMITING; Start 05/15/18 at 15:45; Stop 05/16/18 at 11:16; Status DC Morphine Sulfate (Morphine Sulfate) 2 mg PRN Q2HR PRN IV PAIN; Start 05/15/18 at 15:45; Stop 05/16/18 at 11:17; Status DC Acetaminophen (Tylenol) 650 mg PRN Q4HRS PRN PO FEVER Last administered on 05/15at 20:44; Start 05/15/18 at 15:45; Stop 05/16/18 at 11:17; Status DC Info (Do NOT chart on this placeholder) 1 each PRN 1X PRN MC SEE COMMENTS; Start 05/15/18 at 17:15; Status UNV Influenza Virus Vaccine (Afluria Trivalent [id number] Syringe) 0.5 ml ONCE ONCE VAX IM Last administered on 05/15/18at 17:44; Start 05/15/18 at 18:00; Stop at 18:01; Status DC Lidocaine (Lidoderm) 1 patch QHS TD Last administered on 05/19/18 20:46; Start 05/15/18 at 21:00 Miscellaneous (Lidoderm Patch Removal) 1 ea DAILY MC Last administered on 08:27; Start 05/16/18 at 09:00 Acetaminophen (Tylenol) 1,000 mg PRN Q6HRS PRN PO PAIN; Start 05/15/18 at 21:45 ; Stop 05/16/18 at 14:52; Status DC Aspirin (Ecotrin) 81 mg DAILY08 PO Last administered on 05/20/18 08:25; Start 05/16/18 at 08:00 Calcitonin [place] (Miacalcin Nasal) 1 spray DAILY NS Last administered on 08:26; Start 05/16/18 at 09:00 Calcium Carbonate/ Glycine (Oscal) 500 mg PRN Q6HRS PRN PO INDIGESTION; Start 05/15/18 at 21:45 Pantoprazole Sodium (Protonix) 40 mg DAILYAC PO Last administered on 05/20/18 08:25; Start 05/16/18 at 07:30 Prochlorperazine Maleate (Compazine) 10 mg PRN Q4HRS PRN PO NAUSEA/VOMITING; Start 05/15/18 at 21:45 Senna/Docusate Sodium (Senna Plus) 1 tab PRN DAILY PRN PO CONSTIPATION; Start 05/15/18 at 21:45 Donepezil HCl (Aricept) 5 mg QHS PO Last administered on 05/19/18at 20:45; Start 05/16/18 at 21:00 Fentanyl Citrate (Fentanyl 2ml Vial) 25 mcg PRN Q4HRS PRN IV MODERATE PAIN; Start 05/15/18 at 21:45 Acetaminophen (Tylenol) 650 mg PRN Q6HRS PRN PO FEVER Last administered on 05/19at 20:46; Start 05/16/18 at 15:00 Ondansetron HCl (Zofran) 4 mg PRN Q6HRS PRN IV NAUSEA/VOMITING; Start 05/16/18 at 15:00 Morphine Sulfate (Morphine Sulfate) 2 mg PRN Q2HR PRN IV SEVERE PAIN; Start at 15:00 Tramadol HCl (Ultram) 50 mg PRN Q6HRS PRN PO MILD TO MODERATE PAIN Last administered on 05/19/18at 17:23; Start 05/16/18 at 15:00 Docusate Sodium (Colace) 100 mg PRN DAILY PRN PO HARD STOOLS; Start 05/16/18 at 15:00 Enoxaparin Sodium (Lovenox 40mg Syringe) 40 mg Q24H SQ Last administered on at 16:19; Start 05/16/18 at 16:00 Sodium Chloride 1,000 ml @ 1,000 mls/hr 1X ONCE IV Last administered on at 12:00; Start 05/18/18 at 11:45; Stop 05/18/18 at 12:44; Status DC Amino Acids/ Glycerin/ Electrolytes 1,000 ml @ 60 mls/hr [id number] IV Last administered on 05/18/18at 12:06; Start 05/18/18 at 11:45 Active Scripts Active Pantoprazole Sodium 40 Mg Tablet.dr 40 Mg PO DAILYAC 30 Days Reported Acetaminophen 500 Mg Tablet 1,000 Mg PO PRN Q6HRS PRN Pain reported <7/10 Do not exceed 3gm/day acetaminophen from all sources. Vitamin D3 (Cholecalciferol (Vitamin D3)) 50,000 Unit Capsule 50,000 Unit PO WEEKLY Saturday Tablet (Pnv Cmb#95/Ferrous Fumarate/Fa) 1 Each Tablet 1 Tab PO DAILY Donepezil Hcl 5 Mg Tablet 5 Mg PO HS Calcitonin-[place] (Calcitonin,[place],Synthetic) 3.7 Ml [place].pump 3.7 Ml NS DAILY Senexon-S Tablet (Sennosides/Docusate Sodium) 1 Each Tablet 1 Each PO PRN DAILY PRN Prochlorperazine Maleate 10 Mg Tablet 1 Tab PO PRN Q4HRS PRN Hydrocodone-Apap 7.5-325 (Hydrocodone Bit/Acetaminophen) 1 Each Tablet 1 Tab PO PRN Q6HRS PRN Calcium Carbonate 500 Mg Tablet 500 Mg PO PRN Q6HRS PRN Aspir 81 (Aspirin) 81 Mg Tablet.dr 81 Mg PO DAILY08 Vital Signs Vital Signs Date Time Temp Pulse Resp B/P (MAP) Pulse Ox O2 Delivery O2 Flow Rate FiO2 05/20/18 11:00 97.8 52 18 122/68 (86) 98 Room Air 97.8 Labs Laboratory Tests Test 05/19/18 05:30 White Blood Count 6.3 x10^3/uL (4.0-11.0) Red Blood Count 3.59 x10^6/uL (3.50-5.40) Hemoglobin 11.4 g/dL (12.0-15.5) Hematocrit 33.2 % (36.0-47.0) Mean Corpuscular Volume 92 fL (79-100) Mean Corpuscular Hemoglobin 32 pg (25-35) Mean Corpuscular Hemoglobin Concent 34 g/dL (31-37) Red Cell Distribution Width 13.5 % (11.5-14.5) Platelet Count 209 x10^3/uL (140-400) Neutrophils (%) (Auto) 58 % (31-73) Lymphocytes (%) (Auto) 32 % (24-48) Monocytes (%) (Auto) 8 % (0-9) Eosinophils (%) (Auto) 1 % (0-3) Basophils (%) (Auto) 1 % (0-3) Neutrophils # (Auto) 3.7 x10^3uL (1.8-7.7) Lymphocytes # (Auto) 2.0 x10^3/uL (1.0-4.8) Monocytes # (Auto) 0.5 x10^3/uL (0.0-1.1) Eosinophils # (Auto) 0.1 x10^3/uL (0.0-0.7) Basophils # (Auto) 0.1 x10^3/uL (0.0-0.2) Sodium Level 141 mmol/L (136-145) Potassium Level 3.6 mmol/L (3.5-5.1) Chloride Level 106 mmol/L (98-107) Carbon Dioxide Level 27 mmol/L (21-32) Anion Gap 8 (6-14) Blood Urea Nitrogen 19 mg/dL (7-20) Creatinine 0.6 mg/dL (0.6-1.0) Estimated GFR (Cockcroft-Gault) 96.2 Glucose Level 97 mg/dL (70-99) Calcium Level 9.7 mg/dL (8.5-10.1) Allergies Allergies Coded Allergies Type Severity Reaction Last Updated Verified No Known Drug Allergies 02/21/16 No Disposition/Orders: Other (TO SNF BED) Patient Instructions D/C PLANNING 32 MIN ADALBERTO LAGUNAS MD May 20, 2018 14:30
--- NOTE | 2018-05-20 14:31 | DISCH ---
DISCHARGE DISCHARGE INFORMATION: CONDITION ON DISCHARGE: Stable GROUP HOME: SNF STAY <30 DAYS: Yes HOSPICE: HOSPICE: No HOSPICE EVAL & TREAT: No LTAC: ADMIT TO LTAC: No POST DISCHARGE ORDERS: ACTIVITY ORDERS: Activity as tolerated WEIGHT BEARING STATUS: Non weight bearing BATHING ORDERS: Shower-keep dressing dry DIET AFTER DISCHARGE: Cardiac WOUND/INCISION CARE: May get incision wet CHECKS AFTER DISCHARGE: CHECKS AFTER DISCHARGE: Check blood press - daily TREATMENT/EQUIPMENT ORDERS: ADAPTIVE EQUIPMENT NEEDED: None Physical Therapy For: Evalulation/Treatment Occupational Therapy For: Evaluation/Treatment Speech Language Pathology For: Evaluation/Treatment DISCHARGE MEDICATIONS: Home Meds Active Scripts Pantoprazole Sodium (PANTOPRAZOLE SODIUM) 40 Mg Tablet.dr, 40 MG PO DAILYAC for 30 Days, TAB 0 Refills Prov:GARETT TORRES MD 02/25/16 Reported Medications Acetaminophen (ACETAMINOPHEN) 500 Mg Tablet, 1000 MG PO PRN Q6HRS PRN for PAIN, TAB Pain reported <7/10 Do not exceed 3gm/day acetaminophen from all sources. 05/15/18 Cholecalciferol (Vitamin D3) (VITAMIN D3) 50,000 Unit Capsule, 41598 UNIT PO WEEKLY, CAP Saturday05/15/18 Pnv Cmb#95/Ferrous Fumarate/Fa ( TABLET) 1 Each Tablet, 1 TAB PO DAILY, #90 TAB 3 Refills 05/15/18 Donepezil Hcl (DONEPEZIL HCL) 5 Mg Tablet, 5 MG PO HS, TAB 05/15/18 Calcitonin,[place],Synthetic (CALCITONIN-[place]) 3.7 Ml [place].pump, 3.7 ML NS DAILY, SPRAY 05/15/18 Sennosides/Docusate Sodium (SENEXON-S TABLET) 1 Each Tablet, 1 EACH PO PRN DAILY PRN for CONSTIPATION, TAB 05/15/18 Prochlorperazine Maleate (PROCHLORPERAZINE MALEATE) 10 Mg Tablet, 1 TAB PO PRN Q4HRS PRN for NAUSEA/VOMITING, #30 TAB 3 Refills 05/15/18 Hydrocodone Bit/Acetaminophen (HYDROCODONE-APAP 7.5-325 ) 1 Each Tablet, 1 TAB PO PRN Q6HRS PRN for PAIN, TAB 0 Refills 05/15/18 Calcium Carbonate (CALCIUM CARBONATE) 500 Mg Tablet, 500 MG PO PRN Q6HRS PRN for INDIGESTION, TAB 05/15/18 Aspirin (ASPIR 81) 81 Mg Tablet., 81 MG PO DAILY08 08/27/13 ADALBERTO LAGUNAS MD May 20, 2018 14:31
[2018-05-20 15:00] VITALS: BP 130/71
== END 2018-05-20 17:35 | DRG 542 ==
LOC: ER 11:03 → 4 NORTH 14:55
PROVIDERS: ADMIT Family Medicine; ATTEND Family Medicine
DX: M48.56XA Collapsed vertebra, not elsewhere classified, lumbar region, initial encounter for fracture (principal); G93.41 Metabolic encephalopathy; I10 Essential (primary) hypertension; E78.5 Hyperlipidemia, unspecified; F03.90 Unspecified dementia, unspecified severity, without behavioral disturbance, psychotic disturbance, mood disturbance, and anxiety; G62.9 Polyneuropathy, unspecified; G89.29 Other chronic pain; K21.9 Gastro-esophageal reflux disease without esophagitis; M17.0 Bilateral primary osteoarthritis of knee; R32 Unspecified urinary incontinence; Z82.49 Family history of ischemic heart disease and other diseases of the circulatory system
CPT/HCPCS: 36415; 70450; 72100; 72125; 72131; 77075; 80048; 80053; 81001; 85025; 90471; 90756; 96360; J0630; J1650; J7030; 97110; 97116; 97530; 97535; 99285-25; Q2035

== ENCOUNTER 2019-06-10 19:30 | Inpatient (IN) | payer MEDICARE, OTHER ==
[~2019-06-10] VITALS: Ht 165.1 cm; Wt 45.8 kg
[~2019-06-10 19:30] MED LIST changes: +ACET500T68 PO; +CALC3.7S5 NS; +CALC500T31 PO; +CHOL500050 PO; +DONE5TAB7 PO; -HYDR-2762 PO; +HYDR-2765 PO; -OXYC-327 PO; +OXYC1TAB19 PO; -PANT40TA5 PO; +PANT40TA77 PO; +PNV1TABL25 PO; +PROC5TAB14 PO; +SENN-162 PO
[2019-06-10] MEDS ORDERED: cefTRIAXone IV Push 1 GM VIAL. IVP ONE (20:45)
[2019-06-10 20:52] LABS: BASO # 0.1 x10^3/uL (0.0-0.2); BASO % 1 % (0-3); EOS % 0 % (0-3); HEMATOCRIT 38.6 % (36.0-47.0); HEMOGLOBIN 12.8 g/dL (12.0-15.5); LYMPH # 1.7 x10^3/uL (1.0-4.8); LYMPH % 16 % (24-48); MEAN CORPUSCULAR HEMOGLOBIN 33 pg (25-35); MEAN CORPUSCULAR HGB CONC 33 g/dL (31-37); MEAN CORPUSCULAR VOLUME 100 fL (79-100); MONO # 0.7 x10^3/uL (0.0-1.1); MONO % 6 % (0-9); NEUT # 8.5 x10^3/uL (1.8-7.7); NEUT % 77 % (31-73); PLATELET COUNT 318 x10^3/uL (140-400); RED BLOOD COUNT 3.88 x10^6/uL (3.50-5.40); RED CELL DISTRIBUTION WIDTH 16.1 % (11.5-14.5)
[2019-06-10 20:53] LABS: BILIRUBIN,URINE NEGATIVE (NEG); CLARITY,URINE CLEAR; COLOR,URINE YELLOW; NITRITE,URINE NEGATIVE (NEG); PH,URINE 5.5; PROTEIN,URINE NEGATIVE (NEG-TRACE); UROBILINOGEN,URINE 0.2 mg/dL (0.2 mg/dL)
[2019-06-10 21:01] LABS: CALCIUM 9.9 mg/dL (8.5-10.1); CREATININE 1.1 mg/dL (0.6-1.0); GFR 47.7; POTASSIUM 4.6 mmol/L (3.5-5.1)
[2019-06-10 21:01] LABS: BACTERIA,URINE MANY /HPF (0-FEW); RBC,URINE 0 /HPF (0-2)
[2019-06-10 21:02] LABS: SQUAMOUS EPITHELIAL CELL,UR FEW /LPF
[2019-06-10 21:07] LABS: ALBUMIN 3.6 g/dL (3.4-5.0); ALBUMIN/GLOBULIN RATIO 0.8 (1.0-1.7); TOTAL BILIRUBIN 0.2 mg/dL (0.2-1.0); TOTAL PROTEIN 8.1 g/dL (6.4-8.2)
--- NOTE | 2019-06-10 21:47 | RAD ---
Bilateral Lower Extremity Venous Doppler Ultrasound History: Lower extremity edema Comparison: None Procedure: Color flow, duplex, spectral analysis and 2D images are obtained with and without compression in the area of the common femoral vein, superficial femoral vein - femoral vein junction, main femoral vein (superficial femoral vein) and popliteal vein. Veins of the proximal calf are also imaged. Findings: There is occlusive thrombus throughout the left lower extremity from the common femoral vein into the [employer] the and including the greater saphenous vein proximally. No evidence of deep venous thrombus is present on the right. Impression: Extensive occlusive left lower extremity deep venous thrombosis. Electronically signed by: Won Camargo III, MD (06/10/2019 9:43 PM) [id number]
--- NOTE | 2019-06-10 22:05 | PHYS DOC ---
Past Medical History Past Medical History: Dementia, GERD, Other Additional Past Medical Histor: BACK PAIN Past Surgical History: Hysterectomy Alcohol Use: None Drug Use: None Adult General Chief Complaint Chief Complaint: LOWER EXT PAIN HPI HPI 79-year-old female presents to the emergency department with complaints of left lower extremity pain, right lower shoulder pain. Patient is on hospice for dementia. PCP wanted her evaluated in the emergency Department for DVT. Outpatient report reveals evidence of extensive DVT to the left lower extremity including the, oral, moral, popliteal and 1 of 2 posterior tibial veins. The thrombus appears to be occlusive in the common femoral vein. She complains of pain to bilateral lower extremities. She denies any nausea, vomiting, chest pain, shortness of breath, abdominal pain. Review of Systems Review of Systems Constitutional: Denies fever or chills [] Respiratory: Denies cough or shortness of breath [] Cardiovascular: No additional information not addressed in HPI [] GI: Denies abdominal pain, nausea, vomiting, bloody stools or diarrhea [] Musculoskeletal: bilateral lower ext pain All other systems were reviewed and found to be within normal limits, except as documented in this note. Current Medications Current Medications Current Medications Medications (Trade) Dose Ordered Sig/Vonda Start Time Stop Time Status Last Admin Dose Admin Acetaminophen (Tylenol) 650 mg PRN Q4HRS PRN 06/10/19 22:30 06/11/19 22:29 UNV Ceftriaxone Sodium (Rocephin) 1 gm 1X ONCE 06/10/19 20:45 06/10/19 20:46 DC 06/10/19 21:18 1 GM Heparin Sodium (Porcine) (Heparin Sodium) 750 unit PRN Q6HRS PRN 06/10/19 22:15 Heparin Sodium/ Dextrose 500 ml @ 0 mls/hr CONT PRN 06/10/19 22:15 Ondansetron HCl (Zofran) 4 mg PRN Q8HRS PRN 06/10/19 22:30 06/11/19 22:29 UNV Allergies Allergies Allergies Coded Allergies Type Severity Reaction Last Updated Verified No Known Drug Allergies 02/21/16 No Physical Exam Physical Exam Constitutional: Ill appearing, non-toxic appearing HENT: Normocephalic, atraumatic, bilateral external ears normal, oropharynx moist, no oral exudates, nose normal. [] Eyes: PERRLA, EOMI, conjunctiva normal, no discharge. [] Cardiovascular:Heart rate regular rhythm, no murmur [] Lungs & Thorax: Bilateral breath sounds clear to auscultation [] Abdomen: Bowel sounds normal, soft, no tenderness, no masses, no pulsatile masses. [] Skin: Warm, dry, no erythema, no rash. [] Back: No tenderness, no CVA tenderness. [] Extremities: No tenderness, no cyanosis, no clubbing, ROM intact, no edema. [] Neurologic: Alert and oriented x1, no focal deficits noted. [] Psychologic: Affect normal, judgement normal, mood normal. [] Current Patient Data Vital Signs Vital Signs Date Time Temp Pulse Resp B/P (MAP) Pulse Ox O2 Delivery O2 Flow Rate FiO2 06/10/19 19:30 97.8 87 14 130/71 (90) 96 Room Air 97.8 Lab Values Laboratory Tests Test 06/10/19 19:45 06/10/19 20:10 Urine Collection Type U cath Urine Color Yellow Urine Clarity Clear Urine pH 5.5 Urine Specific [place] 1.020 Urine Protein Negative mg/dL (NEG-TRACE) Urine Glucose (UA) Negative mg/dL (NEG) Urine Ketones (Stick) Negative mg/dL (NEG) Urine Blood Trace (NEG) Urine Nitrite Negative (NEG) Urine Bilirubin Negative (NEG) Urine Urobilinogen Dipstick 0.2 mg/dL (0.2 mg/dL) Urine Leukocyte Esterase Small (NEG) Urine RBC 0 /HPF (0-2) Urine WBC 1-4 /HPF (0-4) Urine Squamous Epithelial Cells Few /LPF Urine Bacteria Many /HPF (0-FEW) White Blood Count 11.0 x10^3/uL (4.0-11.0) Red Blood Count 3.88 x10^6/uL (3.50-5.40) Hemoglobin 12.8 g/dL (12.0-15.5) Hematocrit 38.6 % (36.0-47.0) Mean Corpuscular Volume 100 fL (79-100) Mean Corpuscular Hemoglobin 33 pg (25-35) Mean Corpuscular Hemoglobin Concent 33 g/dL (31-37) Red Cell Distribution Width 16.1 % (11.5-14.5) H Platelet Count 318 x10^3/uL (140-400) Neutrophils (%) (Auto) 77 % (31-73) H Lymphocytes (%) (Auto) 16 % (24-48) L Monocytes (%) (Auto) 6 % (0-9) Eosinophils (%) (Auto) 0 % (0-3) Basophils (%) (Auto) 1 % (0-3) Neutrophils # (Auto) 8.5 x10^3/uL (1.8-7.7) H Lymphocytes # (Auto) 1.7 x10^3/uL (1.0-4.8) Monocytes # (Auto) 0.7 x10^3/uL (0.0-1.1) Eosinophils # (Auto) 0.0 x10^3/uL (0.0-0.7) Basophils # (Auto) 0.1 x10^3/uL (0.0-0.2) Sodium Level 144 mmol/L (136-145) Potassium Level 4.6 mmol/L (3.5-5.1) Chloride Level 108 mmol/L (98-107) H Carbon Dioxide Level 25 mmol/L (21-32) Anion Gap 11 (6-14) Blood Urea Nitrogen 33 mg/dL (7-20) H Creatinine 1.1 mg/dL (0.6-1.0) H Estimated GFR (Cockcroft-Gault) 47.7 BUN/Creatinine Ratio 30 (6-20) H Glucose Level 94 mg/dL (70-99) Calcium Level 9.9 mg/dL (8.5-10.1) Total Bilirubin 0.2 mg/dL (0.2-1.0) Aspartate Amino Transferase (AST) 19 U/L (15-37) Alanine Aminotransferase (ALT) 16 U/L (14-59) Alkaline Phosphatase 102 U/L (46-116) Total Protein 8.1 g/dL (6.4-8.2) Albumin 3.6 g/dL (3.4-5.0) Albumin/Globulin Ratio 0.8 (1.0-1.7) L Laboratory Tests 06/10/19 20:10 Laboratory Tests 06/10/19 20:10 EKG EKG [] Radiology/Procedures Radiology/Procedures [][facility] [address] [place] [address] IMAGING REPORT Signed PATIENT: HEATHER GLOVER ACCOUNT: [id number] : 1940 LOCATION: ER AGE: 79 SEX: F EXAM STATUS: REG ER ORD. PHYSICIAN: SHENA CRAWOFRD MD REASON: lower ext edema, dvt PROCEDURE: VENOUS LOWER EXT BILATERAL Bilateral Lower Extremity Venous Doppler Ultrasound History: Lower extremity edema Comparison: None Procedure: Color flow, duplex, spectral analysis and 2D images are obtained with and without compression in the area of the common femoral vein, superficial femoral vein - femoral vein junction, main femoral vein (superficial femoral vein) and popliteal vein. Veins of the proximal calf are also imaged. Findings: There is occlusive thrombus throughout the left lower extremity from the common femoral vein into the LPN RN the and including the greater saphenous vein proximally. No evidence of deep venous thrombus is present on the right. Impression: Extensive occlusive left lower extremity deep venous thrombosis. Electronically signed by: Savannah Junior III, MD (06/10/2019 9:43 PM) [facility] DICTATED and SIGNED BY: SAVANNAH JUNIOR III, MD DATE: 06/10/19 214 Course & Med Decision Making Course & Med Decision Making Pertinent Labs and Imaging studies reviewed. (See chart for details) []79-year-old female presents to the emergency department with complaints of left lower extremity pain, right lower shoulder pain. Patient is on hospice for dementia. PCP wanted her evaluated in the emergency Department for DVT. Outpatient report reveals evidence of extensive DVT to the left lower extremity including the, oral, moral, popliteal and 1 of 2 posterior tibial veins. The thrombus appears to be occlusive in the common femoral vein. She complains of pain to bilateral lower extremities. She denies any nausea, vomiting, chest pain, shortness of breath, abdominal pain. Labs reviewed, white blood cell count 11.0, urinalysis without evidence of urinary tract infection, creatinine 1.1. Ultrasound reveals occlusive thrombus throughout the left lower extremity including the common femoral vein into the LPN RN, greater saphenous vein included. Interventional radiology consultation pending. Discussed with interventional radiology, we'll plan for consultation in the a.m. for possible thrombolyzes. Heparin initiated in the emergency department will continue. Dragon Disclaimer Dragon Disclaimer This electronic medical record was generated, in whole or in part, using a voice recognition dictation system. Departure Departure Impression: Primary Impression: DVT (deep venous thrombosis) Additional Impression: Bilateral lower extremity edema Disposition: 09 ADMITTED INPATIENT Admitting Physician: MICHAEL Condition: STABLE Referrals: GENEVIEVE MERINO MD (PCP) Problem Qualifiers Primary Impression: DVT (deep venous thrombosis) DVT location: lower extremity Affected thrombotic vein of extremity: femoral Chronicity: acute Laterality: left Qualified Codes: I82.412 - Acute embolism and thrombosis of left femoral vein SHENA CRAWFORD MD Jun 10, 2019 22:05
[2019-06-10] MEDS ORDERED: HEPARIN for IV BOLUS 10,000 UNIT/10 ML VIAL. IV PRN ×2 (22:15)
[2019-06-10] MEDS ORDERED: ACETAMINOPHEN 325 MG TABLET. PO PRN (22:30)
[2019-06-10] MEDS ORDERED: ONDANSETRON PF 4 MG/2 ML VIAL. IV PRN (22:30)
[2019-06-10 22:34] LABS: PROTHROMBIN TIME PATIENT 12.2 SEC (11.7-14.0)
[2019-06-10] MEDS ORDERED: HEPARIN for IV BOLUS 10,000 UNIT/10 ML VIAL. IV ONE (22:45)
[2019-06-10] MEDS: HEPARIN 25,000UTS/500ML PREMIX 500 ML IV PRN (22:46)
[2019-06-11] VITALS (7 sets, daily range): BP systolic 98–156; BP diastolic 62–96
--- NOTE | 2019-06-11 | NUR ---
Received patient from ER per cart to room 436. Admitting dx: Left lower extremity DVT with extensive occlusion. Patient is from [facility]. Patient is only alert to self. Patient in on hospice at [facility]. Reason unknown. Patient has NKA and is a DNR. Patient complains about her leg being swollen on he left leg 2 +. Leg is slightly more pink that right leg. No wounds observed on admission. Patient is on a heparin drip. Will continue to monitor patient closely. Patient said she is not in pain right now.
[2019-06-11 05:02] LABS: BASO # 0.1 x10^3/uL (0.0-0.2); BASO % 1 % (0-3); EOS # 0.1 x10^3/uL (0.0-0.7); EOS % 1 % (0-3); HEMATOCRIT 32.8 % (36.0-47.0); HEMOGLOBIN 10.9 g/dL (12.0-15.5); LYMPH # 2.3 x10^3/uL (1.0-4.8); LYMPH % 25 % (24-48); MEAN CORPUSCULAR HEMOGLOBIN 33 pg (25-35); MEAN CORPUSCULAR HGB CONC 33 g/dL (31-37); MEAN CORPUSCULAR VOLUME 99 fL (79-100); MONO # 0.5 x10^3/uL (0.0-1.1); MONO % 5 % (0-9); NEUT # 6.5 x10^3/uL (1.8-7.7); NEUT % 69 % (31-73); PLATELET COUNT 252 x10^3/uL (140-400); RED BLOOD COUNT 3.32 x10^6/uL (3.50-5.40); RED CELL DISTRIBUTION WIDTH 15.6 % (11.5-14.5); WHITE BLOOD COUNT 9.5 x10^3/uL (4.0-11.0)
--- NOTE | 2019-06-11 05:13 | NUR ---
UFH 0.68 no change in rate required.
[2019-06-11 05:22] LABS: ALBUMIN 2.8 g/dL (3.4-5.0); ALBUMIN/GLOBULIN RATIO 0.8 (1.0-1.7); CALCIUM 8.9 mg/dL (8.5-10.1); CREATININE 0.9 mg/dL (0.6-1.0); GFR 60.1; POTASSIUM 4.1 mmol/L (3.5-5.1); TOTAL BILIRUBIN 0.3 mg/dL (0.2-1.0); TOTAL PROTEIN 6.3 g/dL (6.4-8.2)
--- NOTE | 2019-06-11 05:43 | NUR ---
Spoke to daughter in law Jeanne Zuñiga. Patient gets her meds thru [facility]. Current list on medical record not accurate. Jeanne will bring current list of medications in to the hospital for her medical record.
--- NOTE | 2019-06-11 08:43 | PDOC ---
Provider Note Provider Note IR NOTE Consulted for possible thrombolysis due to LLE DVT involving common femoral vein, through tibial veins. LLE is edematous, but remains soft, with normal color, and sensation. No evidence of phlegmasia. Patient denies pain and is resting comfortably. Given that she seems to be tolerating this relatively well, and her overall clinical status and comorbidities, recommend anticoagulation alone as opposed to tPA thrombolysis. If this does not result in improvement over 10 - 14 days, or symptoms worsen, a more aggressive approach could be considered. ANJALI JIM MD Jun 11, 2019 08:43
--- NOTE | 2019-06-11 08:48 | PDOC1 ---
History and Physical Date of Admission Date of Admission DATE: 06/11/19 TIME: 08:46 Identification/Chief Complaint Chief Complaint Leg pain Source Source: Patient History of Present Illness History of Present Illness Ms Zuñiga 79-year-old F w/ PMHx Dementia, GERD presents to the emergency department with complaints of left lower extremity pain, right lower shoulder pain. Patient is on hospice for dementia. PCP wanted her evaluated in the emergency Department for DVT. Outpatient report reveals evidence of extensive DVT to the left lower extremity including the, oral, moral, popliteal and 1 of 2 posterior tibial veins. The thrombus appears to be occlusive in the common femoral vein. She complains of pain to bilateral lower extremities. She denies any nausea, vomiting, chest pain, shortness of breath, abdominal pain. Seen by IR this morning, not a thrombectomy candidate. Past Medical History Cardiovascular: HTN, Hyperlipidemia Pulmonary: No pertinent hx CENTRAL NERVOUS SYSTEM: Other GI: No pertinent hx Heme/Onc: No pertinent hx Hepatobiliary: No pertinent hx Psych: No pertinent hx Musculoskeletal: low back pain Rheumatologic: No pertinent hx Infectious disease: No pertinent hx Renal/: No pertinent hx Endocrine: No pertinent hx Past Surgical History Past Surgical History: Hysterectomy Family History Family History: No Significant, Hypertension Social History Smoke: No ALCOHOL: none Drugs: None Current Problem List Problem List Problems Medical Problems: (1) Bilateral lower extremity edema Status: Acute (2) DVT (deep venous thrombosis) Status: Acute Current Medications Current Medications Current Medications Ceftriaxone Sodium (Rocephin) 1 gm 1X ONCE IVP Last administered on 06/10/19at 21:18; Start 06/10/19 at 20:45; Stop 06/10/19 at 20:46; Status DC Heparin Sodium/ Dextrose 500 ml @ 0 mls/hr CONT PRN IV PER PROTOCOL Last administered on 06/10/19at 22:46; Start 06/10/19 at 22:15 Heparin Sodium (Porcine) (Heparin Sodium) 1,500 unit PRN Q6HRS PRN IV FOR UFH LEVEL LESS THAN 0.2; Start 06/10/19 at 22:15 Heparin Sodium (Porcine) (Heparin Sodium) 750 unit PRN Q6HRS PRN IV FOR UFH LEVEL 0.2 - 0.29; Start 06/10/19 at 22:15 Ondansetron HCl (Zofran) 4 mg PRN Q8HRS PRN IV NAUSEA/VOMITING; Start 06/10/19 at 22:30; Stop 06/11/19 at 22:29 Acetaminophen (Tylenol) 650 mg PRN Q4HRS PRN PO FEVER; Start 06/10/19 at 22:30; Stop 06/11/19 at 22:29 Heparin Sodium (Porcine) (Heparin Sodium) 4,000 unit 1X ONCE IV Last administered on 06/10/19at 22:47; Start 06/10/19 at 22:45; Stop 06/10/19 at 22:46; Status DC Active Scripts Active Pantoprazole Sodium 40 Mg Tablet. 40 Mg PO DAILYAC 30 Days Reported Acetaminophen 500 Mg Tablet 1,000 Mg PO PRN Q6HRS PRN Pain reported <7/10 Do not exceed 3gm/day acetaminophen from all sources. Vitamin D3 (Cholecalciferol (Vitamin D3)) 50,000 Unit Capsule 50,000 Unit PO WEEKLY Saturday Tablet (Pnv Cmb#95/Ferrous Fumarate/Fa) 1 Each Tablet 1 Tab PO DAILY Donepezil Hcl 5 Mg Tablet 5 Mg PO HS Calcitonin-Woodlawn (Calcitonin,[place],Synthetic) 3.7 Ml [place].pump 3.7 Ml NS DAILY Senexon-S Tablet (Sennosides/Docusate Sodium) 1 Each Tablet 1 Each PO PRN DAILY PRN Prochlorperazine Maleate 10 Mg Tablet 1 Tab PO PRN Q4HRS PRN Hydrocodone-Apap 7.5-325 (Hydrocodone Bit/Acetaminophen) 1 Each Tablet 1 Tab PO PRN Q6HRS PRN Calcium Carbonate 500 Mg Tablet 500 Mg PO PRN Q6HRS PRN Aspir 81 (Aspirin) 81 Mg Tablet. 81 Mg PO DAILY08 Allergies Allergies: Coded Allergies: No Known Drug Allergies (Unverified , 02/21/16) ROS Review of System Unable to obtain accurate ROS due to dementia General: No: Chills, Night Sweats, Fatigue, Malaise, Appetite, Other PSYCHOLOGICAL ROS: No: Anxiety, Behavioral Disorder, Concentration difficultie, Decreased libido, Depression, Disorientation, Hallucinations, Hostility, Irritablity, Memory difficulties, Mood Swings, Obsessive thoughts, Physical abuse, Sexual abuse, Sleep disturbances, Suicidal ideation, Other Eyes: No Blurry vision, No Decreased vision, No Double vision, No Dry eyes, No Excessive tearing, No Eye Pain, No Itchy Eyes, No Loss of vision, No Photophobia, No Scotomata, No Uses contacts, No Uses glasses, No Other HEENT: No: Heacaches, Visual Changes, Hearing change, Nasal congestion, Nasal discharge, Oral lesions, Sinus pain, Sore Throat, Epistaxis, Sneezing, Snoring, Tinnitus, Vertigo, Vocal changes, Other ALLERGY AND IMMUNOLOGY: No: Hives, Insect Bite Sensitivity, Itchy/Watery Eyes, Nasal Congestion, Post Nasal Drip, Seasonal Allergies, Other Hematological and Lymphatic: No: Bleeding Problems, Blood Clots, Blood Transfusions, Brusing, Night Sweats, Pallor, Swollen Lymph Nodes, Other ENDOCRINE: No: Breast Changes, Galactorrhea, Hair Pattern Changes, Hot Flashes, Malaise/lethargy, Mood Swings, Palpitations, Polydipsia/polyuria, Skin Changes, Temperature Intolerance, Unexpected Weight Changes, Other Breast: No New/Changing Breast Lumps, No Nipple changes, No Nipple discharge, No Other Respiratory: No: Cough, Hemoptysis, Orthopnea, Pleuritic Pain, Shortness of breath, SOB with excertion, Sputum Changes, Stridor, Tachypnea, Wheezing, Other Cardiovascular: No Chest Pain, No Palpitations, No Orthopnea, No Paroxysmal Noc. Dyspnea, No Edema, No Lt Headedness, No Other Gastrointestinal: No Nausea, No Vomiting, No Abdominal Pain, No Diarrhea, No Constipation, No Melena, No Hematochezia, No Other Genitourinary: No Dysuria, No Frequency, No Incontinence, No Hematuria, No Retention, No Discharge, No Urgency, No Pain, No Flank Pain, No Other, No , No , No , No , No , No , No Musculoskeletal: Yes Muscle Pain, Yes Muscular Weakness; No Gait Disturbance, No Joint Pain, No Joint Stiffness, No Joint Swelling, No Pain In:, No Swelling In:, No Other Neurological: Yes Gait Disturbance; No Behavorial Changes, No Bowel/Bladder ControlChng, No Confusion, No Dizziness, No Headaches, No Impaired Coord/balance, No Memory Loss, No Numbn ess/Tingling, No Seizures, No Speech Problems, No Tremors, No Visual Changes, No Weakness, No Other Skin: No Dry Skin, No Eczema, No Hair Changes, No Lumps, No Mole Changes, No Mottling, No Nail Changes, No Pruritus, No Rash, No Skin Lesion Changes, No Other, No Acne Physical Exam General: Alert, Cooperative, mild distress HEENT: Atraumatic, PERRLA, EOMI, Mucous membr. moist/pink Lungs: Clear to auscultation, Normal air movement Heart: S1S2, RRR, no thrills, no rubs, no gallops, no murmurs Abdomen: Normal bowel sounds, Soft, No tenderness, No hepatosplenomegaly, No masses Rectal Exam: not examined Extremities: No clubbing, No cyanosis, No edema, Normal pulses, No tenderness/swelling Skin: No rashes, No breakdown, No significant lesion Neuro: Reflexes 2+ Psych/Mental Status: Other (Confused) Vitals Vitals Vital Signs Date Time Temp Pulse Resp B/P (MAP) Pulse Ox O2 Delivery O2 Flow Rate FiO2 06/11/19 07:55 Room Air 06/11/19 07:00 97.6 94 16 156/96 (116) 100 97.6 Labs Labs Laboratory Tests Test 06/10/19 19:45 06/10/19 20:10 06/11/19 04:50 Urine Collection Type U cath Urine Color Yellow Urine Clarity Clear Urine pH 5.5 Urine Specific [place] 1.020 Urine Protein Negative mg/dL (NEG-TRACE) Urine Glucose (UA) Negative mg/dL (NEG) Urine Ketones (Stick) Negative mg/dL (NEG) Urine Blood Trace (NEG) Urine Nitrite Negative (NEG) Urine Bilirubin Negative (NEG) Urine Urobilinogen Dipstick 0.2 mg/dL (0.2 mg/dL) Urine Leukocyte Esterase Small (NEG) Urine RBC 0 /HPF (0-2) Urine WBC 1-4 /HPF (0-4) Urine Squamous Epithelial Cells Few /LPF Urine Bacteria Many /HPF (0-FEW) White Blood Count 11.0 x10^3/uL (4.0-11.0) 9.5 x10^3/uL (4.0-11.0) Red Blood Count 3.88 x10^6/uL (3.50-5.40) 3.32 x10^6/uL (3.50-5.40) Hemoglobin 12.8 g/dL (12.0-15.5) 10.9 g/dL (12.0-15.5) Hematocrit 38.6 % (36.0-47.0) 32.8 % (36.0-47.0) Mean Corpuscular Volume 100 fL (79-100) 99 fL (79-100) Mean Corpuscular Hemoglobin 33 pg (25-35) 33 pg (25-35) Mean Corpuscular Hemoglobin Concent 33 g/dL (31-37) 33 g/dL (31-37) Red Cell Distribution Width 16.1 % (11.5-14.5) 15.6 % (11.5-14.5) Platelet Count 318 x10^3/uL (140-400) 252 x10^3/uL (140-400) Neutrophils (%) (Auto) 77 % (31-73) 69 % (31-73) Lymphocytes (%) (Auto) 16 % (24-48) 25 % (24-48) Monocytes (%) (Auto) 6 % (0-9) 5 % (0-9) Eosinophils (%) (Auto) 0 % (0-3) 1 % (0-3) Basophils (%) (Auto) 1 % (0-3) 1 % (0-3) Neutrophils # (Auto) 8.5 x10^3/uL (1.8-7.7) 6.5 x10^3/uL (1.8-7.7) Lymphocytes # (Auto) 1.7 x10^3/uL (1.0-4.8) 2.3 x10^3/uL (1.0-4.8) Monocytes # (Auto) 0.7 x10^3/uL (0.0-1.1) 0.5 x10^3/uL (0.0-1.1) Eosinophils # (Auto) 0.0 x10^3/uL (0.0-0.7) 0.1 x10^3/uL (0.0-0.7) Basophils # (Auto) 0.1 x10^3/uL (0.0-0.2) 0.1 x10^3/uL (0.0-0.2) Prothrombin Time 12.2 SEC (11.7-14.0) Prothromb Time International Ratio 0.9 (0.8-1.1) Sodium Level 144 mmol/L (136-145) 143 mmol/L (136-145) Potassium Level 4.6 mmol/L (3.5-5.1) 4.1 mmol/L (3.5-5.1) Chloride Level 108 mmol/L (98-107) 111 mmol/L (98-107) Carbon Dioxide Level 25 mmol/L (21-32) 24 mmol/L (21-32) Anion Gap 11 (6-14) 8 (6-14) Blood Urea Nitrogen 33 mg/dL (7-20) 27 mg/dL (7-20) Creatinine 1.1 mg/dL (0.6-1.0) 0.9 mg/dL (0.6-1.0) Estimated GFR (Cockcroft-Gault) 47.7 60.1 BUN/Creatinine Ratio 30 (6-20) 30 (6-20) Glucose Level 94 mg/dL (70-99) 91 mg/dL (70-99) Calcium Level 9.9 mg/dL (8.5-10.1) 8.9 mg/dL (8.5-10.1) Total Bilirubin 0.2 mg/dL (0.2-1.0) 0.3 mg/dL (0.2-1.0) Aspartate Amino Transf (AST/SGOT) 19 U/L (15-37) 15 U/L (15-37) Alanine Aminotransferase (ALT/SGPT) 16 U/L (14-59) 12 U/L (14-59) Alkaline Phosphatase 102 U/L (46-116) 74 U/L (46-116) Total Protein 8.1 g/dL (6.4-8.2) 6.3 g/dL (6.4-8.2) Albumin 3.6 g/dL (3.4-5.0) 2.8 g/dL (3.4-5.0) Albumin/Globulin Ratio 0.8 (1.0-1.7) 0.8 (1.0-1.7) Heparin Anti-Xa Act, Unfractionated 0.68 IU/mL (0.30-0.70) Laboratory Tests Test 06/10/19 19:45 06/10/19 20:10 06/11/19 04:50 Urine Collection Type U cath Urine Color Yellow Urine Clarity Clear Urine pH 5.5 Urine Specific [place] 1.020 Urine Protein Negative mg/dL (NEG-TRACE) Urine Glucose (UA) Negative mg/dL (NEG) Urine Ketones (Stick) Negative mg/dL (NEG) Urine Blood Trace (NEG) Urine Nitrite Negative (NEG) Urine Bilirubin Negative (NEG) Urine Urobilinogen Dipstick 0.2 mg/dL (0.2 mg/dL) Urine Leukocyte Esterase Small (NEG) Urine RBC 0 /HPF (0-2) Urine WBC 1-4 /HPF (0-4) Urine Squamous Epithelial Cells Few /LPF Urine Bacteria Many /HPF (0-FEW) White Blood Count 11.0 x10^3/uL (4.0-11.0) 9.5 x10^3/uL (4.0-11.0) Red Blood Count 3.88 x10^6/uL (3.50-5.40) 3.32 x10^6/uL (3.50-5.40) Hemoglobin 12.8 g/dL (12.0-15.5) 10.9 g/dL (12.0-15.5) Hematocrit 38.6 % (36.0-47.0) 32.8 % (36.0-47.0) Mean Corpuscular Volume 100 fL (79-100) 99 fL (79-100) Mean Corpuscular Hemoglobin 33 pg (25-35) 33 pg (25-35) Mean Corpuscular Hemoglobin Concent 33 g/dL (31-37) 33 g/dL (31-37) Red Cell Distribution Width 16.1 % (11.5-14.5) 15.6 % (11.5-14.5) Platelet Count 318 x10^3/uL (140-400) 252 x10^3/uL (140-400) Neutrophils (%) (Auto) 77 % (31-73) 69 % (31-73) Lymphocytes (%) (Auto) 16 % (24-48) 25 % (24-48) Monocytes (%) (Auto) 6 % (0-9) 5 % (0-9) Eosinophils (%) (Auto) 0 % (0-3) 1 % (0-3) Basophils (%) (Auto) 1 % (0-3) 1 % (0-3) Neutrophils # (Auto) 8.5 x10^3/uL (1.8-7.7) 6.5 x10^3/uL (1.8-7.7) Lymphocytes # (Auto) 1.7 x10^3/uL (1.0-4.8) 2.3 x10^3/uL (1.0-4.8) Monocytes # (Auto) 0.7 x10^3/uL (0.0-1.1) 0.5 x10^3/uL (0.0-1.1) Eosinophils # (Auto) 0.0 x10^3/uL (0.0-0.7) 0.1 x10^3/uL (0.0-0.7) Basophils # (Auto) 0.1 x10^3/uL (0.0-0.2) 0.1 x10^3/uL (0.0-0.2) Prothrombin Time 12.2 SEC (11.7-14.0) Prothromb Time International Ratio 0.9 (0.8-1.1) Sodium Level 144 mmol/L (136-145) 143 mmol/L (136-145) Potassium Level 4.6 mmol/L (3.5-5.1) 4.1 mmol/L (3.5-5.1) Chloride Level 108 mmol/L (98-107) 111 mmol/L (98-107) Carbon Dioxide Level 25 mmol/L (21-32) 24 mmol/L (21-32) Anion Gap 11 (6-14) 8 (6-14) Blood Urea Nitrogen 33 mg/dL (7-20) 27 mg/dL (7-20) Creatinine 1.1 mg/dL (0.6-1.0) 0.9 mg/dL (0.6-1.0) Estimated GFR (Cockcroft-Gault) 47.7 60.1 BUN/Creatinine Ratio 30 (6-20) 30 (6-20) Glucose Level 94 mg/dL (70-99) 91 mg/dL (70-99) Calcium Level 9.9 mg/dL (8.5-10.1) 8.9 mg/dL (8.5-10.1) Total Bilirubin 0.2 mg/dL (0.2-1.0) 0.3 mg/dL (0.2-1.0) Aspartate Amino Transf (AST/SGOT) 19 U/L (15-37) 15 U/L (15-37) Alanine Aminotransferase (ALT/SGPT) 16 U/L (14-59) 12 U/L (14-59) Alkaline Phosphatase 102 U/L (46-116) 74 U/L (46-116) Total Protein 8.1 g/dL (6.4-8.2) 6.3 g/dL (6.4-8.2) Albumin 3.6 g/dL (3.4-5.0) 2.8 g/dL (3.4-5.0) Albumin/Globulin Ratio 0.8 (1.0-1.7) 0.8 (1.0-1.7) Heparin Anti-Xa Act, Unfractionated 0.68 IU/mL (0.30-0.70) Images Images LLE US - Extensive occlusive left lower extremity deep venous thrombosis. VTE Prophylaxis Ordered VTE Prophylaxis Devices: Yes VTE Pharmacological Prophylaxi: Yes Assessment/Plan Assessment/Plan A/P: LLE DVT - extensive, not a thrombectomy candidate. Will d/w IR if an IVC filter is appropriate as hospice may not continue anticoagulation. Osteoporosis - is active with hospice now Multiple compression fractures - historically, pain control Dementia - in hospice currently GERD - on H2 maximilian FEN - General diet PPX - heparin gtt DNR/DNI Dispo - inpatient for extensive DVT BENJAMIN BORRERO MD Jun 11, 2019 08:48
[2019-06-11] MEDS ORDERED: MORP20SY PO (09:33)
[2019-06-11] MEDS ORDERED: LORA2ORA2 PO (09:33)
[2019-06-11] MEDS ORDERED: MEGE400O2 PO (09:33)
[2019-06-11] MEDS ORDERED: SPIR25TA5 PO (09:33)
--- NOTE | 2019-06-11 09:56 | NUR ---
Received fax list of medications from [facility], updated home medication list and notified Dr. Denson. Also sports writer called [facility] and spoke to Smitha, patient has not received flu vaccine yet. Spoke to daughter in law Jeanne and she stated she did want patient to receive the flu vaccine today.
[2019-06-11] MEDS ORDERED: FLU VAX QS 2019-20 (36MOS+)/PF 0.5 ML SYRINGE. VAX IM ONE (10:00)
--- NOTE | 2019-06-11 11:28 | NUR ---
UFH 0.57, no change in Heparin dose. This is second normal UFH level, recheck UFH tomorrow 06/12/19 at 0500.
[2019-06-11] MEDS: ANTI-COAG MONITOR BY PHARMACY. MC PRN (14:52)
[2019-06-11] MEDS ORDERED: LORazepam INTENSOL 2 MG/ML ORAL.CONC PO PRN (15:15)
[2019-06-11] MEDS ORDERED: ACETAMINOPHEN 500 MG TABLET PO PRN (15:15)
[2019-06-11] MEDS ORDERED: MORPHINE SULFATE 10 MG/5 ML ORAL SOLUTION. PO PRN (15:30)
--- NOTE | 2019-06-11 15:39 | NUR ---
SS following for discharge planning. SS reviewed pt chart. Pt is from [facility], ; fax [phone], and is currently on services with [facility], ; fax [phone]. Pt is currently on room air. SS will continue to follow for discharge planning.
[2019-06-11] MEDS ORDERED: WARFARIN 5 MG TABLET. PO SCH (16:00)
[2019-06-12 03:00] VITALS: BP 150/93
[2019-06-12] MEDS: HEPARIN 25,000UTS/500ML PREMIX 500 ML IV PRN (03:21)
[2019-06-12 07:00] VITALS: BP 116/66
[2019-06-12 07:49] LABS: HEMATOCRIT 33.1 % (36.0-47.0); HEMOGLOBIN 11.2 g/dL (12.0-15.5); RED BLOOD COUNT 3.37 x10^6/uL (3.50-5.40); RED CELL DISTRIBUTION WIDTH 15.5 % (11.5-14.5); WHITE BLOOD COUNT 8.3 x10^3/uL (4.0-11.0)
--- NOTE | 2019-06-12 08:12 | PDOC ---
PROGRESS NOTES Chief Complaint Chief Complaint A/P: LLE DVT - extensive, not a thrombectomy candidate. Will d/w IR if an IVC filter is appropriate as hospice may not continue anticoagulation. Change from heparin to eliquis Osteoporosis - is active with hospice now Multiple compression fractures - historically, pain control Dementia - in hospice currently GERD - on H2 maximilian FEN - General diet PPX - heparin gtt DNR/DNI Dispo - inpatient for extensive DVT. D/c in AM to [facility] following History of Present Illness History of Present Illness Ms Zuñiga 79-year-old F w/ PMHx Dementia, GERD presents to the emergency department with complaints of left lower extremity pain, right lower shoulder pain. Patient is on hospice for dementia. PCP wanted her evaluated in the emergency Department for DVT. Outpatient report reveals evidence of extensive DVT to the left lower extremity including the, oral, moral, popliteal and 1 of 2 posterior tibial veins. The thrombus appears to be occlusive in the common femoral vein. She complains of pain to bilateral lower extremities. She denies any nausea, vomiting, chest pain, shortness of breath, abdominal pain. Seen by IR this morning, not a thrombectomy candidate. Does not wish for IVC filter. Have d/w her daughter. After dosing of coumadin her INR has not moved at all. She is eating well, no complaints today. She has forgotten she is here for her leg pain. No SOB or CP. INR still low. Have d/w daughter to start eliquis therapy instead for d/c planned tomorrow morning to ensure the clot continues to resolve. Vitals Vitals Vital Signs Date Time Temp Pulse Resp B/P (MAP) Pulse Ox O2 Delivery O2 Flow Rate FiO2 06/12/19 03:00 97.9 73 18 150/93 (112) 100 Room Air 97.9 Physical Exam General: Alert, Cooperative, mild distress Lungs: Clear Abdomen: Normal bowel sounds, Soft, No tenderness, No hepatosplenomegaly, No masses Extremities: No clubbing, No cyanosis, No edema, Normal pulses, No tenderness/swelling Skin: No rashes, No breakdown, No significant lesion Labs LABS Laboratory Tests Test 06/11/19 10:55 06/12/19 07:24 Heparin Anti-Xa Act, Unfractionated 0.57 IU/mL (0.30-0.70) White Blood Count 8.3 x10^3/uL (4.0-11.0) Red Blood Count 3.37 x10^6/uL (3.50-5.40) Hemoglobin 11.2 g/dL (12.0-15.5) Hematocrit 33.1 % (36.0-47.0) Mean Corpuscular Volume 98 fL (79-100) Mean Corpuscular Hemoglobin 33 pg (25-35) Mean Corpuscular Hemoglobin Concent 34 g/dL (31-37) Red Cell Distribution Width 15.5 % (11.5-14.5) Platelet Count 240 x10^3/uL (140-400) Assessment and Plan Assessmemt and Plan Problems Medical Problems: (1) Bilateral lower extremity edema Status: Acute (2) DVT (deep venous thrombosis) Status: Acute Comment Review of Relevant I have reviewed the following items bubba (where applicable) has been applied. Labs Laboratory Tests Test 06/10/19 19:45 06/10/19 20:10 06/11/19 04:50 06/11/19 10:55 Urine Collection Type U cath Urine Color Yellow Urine Clarity Clear Urine pH 5.5 Urine Specific [place] 1.020 Urine Protein Negative mg/dL (NEG-TRACE) Urine Glucose (UA) Negative mg/dL (NEG) Urine Ketones (Stick) Negative mg/dL (NEG) Urine Blood Trace (NEG) Urine Nitrite Negative (NEG) Urine Bilirubin Negative (NEG) Urine Urobilinogen Dipstick 0.2 mg/dL (0.2 mg/dL) Urine Leukocyte Esterase Small (NEG) Urine RBC 0 /HPF (0-2) Urine WBC 1-4 /HPF (0-4) Urine Squamous Epithelial Cells Few /LPF Urine Bacteria Many /HPF (0-FEW) White Blood Count 11.0 x10^3/uL (4.0-11.0) 9.5 x10^3/uL (4.0-11.0) Red Blood Count 3.88 x10^6/uL (3.50-5.40) 3.32 x10^6/uL (3.50-5.40) Hemoglobin 12.8 g/dL (12.0-15.5) 10.9 g/dL (12.0-15.5) Hematocrit 38.6 % (36.0-47.0) 32.8 % (36.0-47.0) Mean Corpuscular Volume 100 fL (79-100) 99 fL (79-100) Mean Corpuscular Hemoglobin 33 pg (25-35) 33 pg (25-35) Mean Corpuscular Hemoglobin Concent 33 g/dL (31-37) 33 g/dL (31-37) Red Cell Distribution Width 16.1 % (11.5-14.5) 15.6 % (11.5-14.5) Platelet Count 318 x10^3/uL (140-400) 252 x10^3/uL (140-400) Neutrophils (%) (Auto) 77 % (31-73) 69 % (31-73) Lymphocytes (%) (Auto) 16 % (24-48) 25 % (24-48) Monocytes (%) (Auto) 6 % (0-9) 5 % (0-9) Eosinophils (%) (Auto) 0 % (0-3) 1 % (0-3) Basophils (%) (Auto) 1 % (0-3) 1 % (0-3) Neutrophils # (Auto) 8.5 x10^3/uL (1.8-7.7) 6.5 x10^3/uL (1.8-7.7) Lymphocytes # (Auto) 1.7 x10^3/uL (1.0-4.8) 2.3 x10^3/uL (1.0-4.8) Monocytes # (Auto) 0.7 x10^3/uL (0.0-1.1) 0.5 x10^3/uL (0.0-1.1) Eosinophils # (Auto) 0.0 x10^3/uL (0.0-0.7) 0.1 x10^3/uL (0.0-0.7) Basophils # (Auto) 0.1 x10^3/uL (0.0-0.2) 0.1 x10^3/uL (0.0-0.2) Prothrombin Time 12.2 SEC (11.7-14.0) Prothromb Time International Ratio 0.9 (0.8-1.1) Sodium Level 144 mmol/L (136-145) 143 mmol/L (136-145) Potassium Level 4.6 mmol/L (3.5-5.1) 4.1 mmol/L (3.5-5.1) Chloride Level 108 mmol/L (98-107) 111 mmol/L (98-107) Carbon Dioxide Level 25 mmol/L (21-32) 24 mmol/L (21-32) Anion Gap 11 (6-14) 8 (6-14) Blood Urea Nitrogen 33 mg/dL (7-20) 27 mg/dL (7-20) Creatinine 1.1 mg/dL (0.6-1.0) 0.9 mg/dL (0.6-1.0) Estimated GFR (Cockcroft-Gault) 47.7 60.1 BUN/Creatinine Ratio 30 (6-20) 30 (6-20) Glucose Level 94 mg/dL (70-99) 91 mg/dL (70-99) Calcium Level 9.9 mg/dL (8.5-10.1) 8.9 mg/dL (8.5-10.1) Total Bilirubin 0.2 mg/dL (0.2-1.0) 0.3 mg/dL (0.2-1.0) Aspartate Amino Transf (AST/SGOT) 19 U/L (15-37) 15 U/L (15-37) Alanine Aminotransferase (ALT/SGPT) 16 U/L (14-59) 12 U/L (14-59) Alkaline Phosphatase 102 U/L (46-116) 74 U/L (46-116) Total Protein 8.1 g/dL (6.4-8.2) 6.3 g/dL (6.4-8.2) Albumin 3.6 g/dL (3.4-5.0) 2.8 g/dL (3.4-5.0) Albumin/Globulin Ratio 0.8 (1.0-1.7) 0.8 (1.0-1.7) Heparin Anti-Xa Act, Unfractionated 0.68 IU/mL (0.30-0.70) 0.57 IU/mL (0.30-0.70) Test 06/12/19 07:24 White Blood Count 8.3 x10^3/uL (4.0-11.0) Red Blood Count 3.37 x10^6/uL (3.50-5.40) Hemoglobin 11.2 g/dL (12.0-15.5) Hematocrit 33.1 % (36.0-47.0) Mean Corpuscular Volume 98 fL (79-100) Mean Corpuscular Hemoglobin 33 pg (25-35) Mean Corpuscular Hemoglobin Concent 34 g/dL (31-37) Red Cell Distribution Width 15.5 % (11.5-14.5) Platelet Count 240 x10^3/uL (140-400) Laboratory Tests Test 06/11/19 10:55 06/12/19 07:24 Heparin Anti-Xa Act, Unfractionated 0.57 IU/mL (0.30-0.70) White Blood Count 8.3 x10^3/uL (4.0-11.0) Red Blood Count 3.37 x10^6/uL (3.50-5.40) Hemoglobin 11.2 g/dL (12.0-15.5) Hematocrit 33.1 % (36.0-47.0) Mean Corpuscular Volume 98 fL (79-100) Mean Corpuscular Hemoglobin 33 pg (25-35) Mean Corpuscular Hemoglobin Concent 34 g/dL (31-37) Red Cell Distribution Width 15.5 % (11.5-14.5) Platelet Count 240 x10^3/uL (140-400) Microbiology 06/10/19 Blood Culture - Preliminary, Resulted NO GROWTH AFTER 1 DAY Medications Current Medications Ceftriaxone Sodium (Rocephin) 1 gm 1X ONCE IVP Last administered on 06/10/19at 21:18; Start 06/10/19 at 20:45; Stop 06/10/19 at 20:46; Status DC Heparin Sodium/ Dextrose 500 ml @ 0 mls/hr CONT PRN IV PER PROTOCOL Last administered on 06/12/19at 03:21; Start 06/10/19 at 22:15 Heparin Sodium (Porcine) (Heparin Sodium) 1,500 unit PRN Q6HRS PRN IV FOR UFH LEVEL LESS THAN 0.2; Start 06/10/19 at 22:15 Heparin Sodium (Porcine) (Heparin Sodium) 750 unit PRN Q6HRS PRN IV FOR UFH LEVEL 0.2 - 0.29; Start 06/10/19 at 22:15 Ondansetron HCl (Zofran) 4 mg PRN Q8HRS PRN IV NAUSEA/VOMITING; Start 06/10/19 at 22:30; Stop 06/11/19 at 22:29; Status DC Acetaminophen (Tylenol) 650 mg PRN Q4HRS PRN PO FEVER; Start 06/10/19 at 22:30; Stop 06/11/19 at 22:29; Status DC Heparin Sodium (Porcine) (Heparin Sodium) 4,000 unit 1X ONCE IV Last administered on 06/10/19at 22:47; Start 06/10/19 at 22:45; Stop 06/10/19 at 22:46; Status DC Influenza Virus Vaccine Quadrival (Afluria Quad 2019-20 (3yr Up) Syringe) 0.5 ml ONCE ONCE VAX IM Last administered on 06/11/19at 10:14; Start 06/11/19 at 10:00; Stop 06/11/19 at 10:01; Status DC Info (Anti-Coagulation Monitoring By Pharmacy) 1 each PRN DAILY PRN MC SEE COMMENTS Last administered on 06/11/19at 14:52; Start 06/11/19 at 15:00 Warfarin Sodium (Coumadin) 5 mg DAILY16 PO Last administered on 06/11/19at 17:03; Start 06/11/19 at 16:00 Acetaminophen (Tylenol) 1,000 mg PRN Q6HRS PRN PO PAIN; Start 06/11/19 at 15:15 Lorazepam (Ativan Intensol) 1 mg PRN Q4HRS PRN PO ANXIETY / AGITATION; Start 06/11/19 at 15:15 Megestrol Acetate (Megace) 400 mg DAILY PO ; Start 06/12/19 at 09:00 Morphine Sulfate (Morphine Oral Solution) 5 mg PRN Q2HRS PRN PO PAIN; Start 06/11/19 at 15:30 Warfarin Sodium (Coumadin Per Physician) 1 each PRN DAILY PRN MC SEE COMMENTS Last administered on 06/11/19at 15:16; Start 06/11/19 at 15:15 Active Scripts Active Reported Morphine Sulfate 20 Mg/1 Ml Syringe 5 Mg PO PRN Q2HR PRN Lorazepam 2 Mg/1 Ml Oral.conc 1 Mg PO PRN Q4HRS PRN Spironolactone 25 Mg Tablet 1 Tab PO DAILY Megestrol Acetate 400 Mg/10 Ml Oral.susp 400 Mg PO DAILY Acetaminophen 500 Mg Tablet 1,000 Mg PO PRN Q6HRS PRN Pain reported <7/10 Do not exceed 3gm/day acetaminophen from all sources. Tablet (Pnv Cmb#95/Ferrous Fumarate/Fa) 1 Each Tablet 1 Tab PO DAILY Vitals/I & O Vital Sign - Last 24 Hours 06/11/19 06/11/19 06/11/19 06/11/19 11:00 15:00 19:00 20:00 Temp 97.7 97.7 97.8 97.7 97.7 97.8 Pulse 83 68 77 Resp 18 18 18 B/P (MAP) 125/62 (83) 125/62 (83) 119/62 (81) Pulse Ox 100 100 100 O2 Delivery Room Air Room Air Room Air Room Air 06/11/19 06/12/19 23:00 03:00 Temp 98.0 97.9 98.0 97.9 Pulse 75 73 Resp 18 18 B/P (MAP) 129/62 (84) 150/93 (112) Pulse Ox 99 100 O2 Delivery Room Air Room Air Intake and Output 06/11/19 06/11/19 06/12/19 14:59 22:59 06:59 Intake Total 240 ml 180 ml 384 ml Balance 240 ml 180 ml 384 ml Nutrition Consultation Dietary Evaluation: Recommendations by RD: Increase Calorie Intake, Protein supplementation Comments: ensure bid Expected Outcomes/Goals: to meet > 75% est nutr needs via meals and supplements Malnutrition Findings: Body Fat Depletion (Non Severe: Mod to Severe Weight Status: Underweight BENJAMIN BORRERO MD Jun 12, 2019 08:12
[2019-06-12] MEDS: MEGESTROL 400 MG/10 ML ORAL.SUSP. PO SCH (09:00)
--- NOTE | 2019-06-12 10:21 | NUR ---
SS following up with discharge planning. SS phoned and faxed clinical to [facility], ; fax [phone], and [facility], ; fax [phone]. SS will continue to follow for discharge planning.
[2019-06-12 11:00] VITALS: BP 103/58
[2019-06-12] MEDS: APIXABAN 5 MG TABLET. PO SCH ×2 (14:13→21:51)
[2019-06-12] MEDS ORDERED: APIX5TAB PO (14:25)
[2019-06-12] MEDS ORDERED: LORA2ORA2 PO (14:26)
[2019-06-12] MEDS ORDERED: MORP20SY PO (14:26)
--- NOTE | 2019-06-12 14:27 | SNU/HH DC ---
DISCHARGE ORDERS DISCHARGE INFORMATION: DISCHARGE DATE: Jun 13, 2019 FINAL DIAGNOSIS Problems Medical Problems: (1) Bilateral lower extremity edema Status: Acute (2) DVT (deep venous thrombosis) Status: Acute CONDITION ON DISCHARGE: Stable CODE STATUS: Code Status: DNR/DNI HOSPICE: HOSPICE: Yes HOSPICE EVAL & TREAT: Yes POST DISCHARGE ORDERS: ACTIVITY ORDERS: Activity as tolerated WEIGHT BEARING STATUS: Non weight bearing BATHING ORDERS: Shower-keep dressing dry DIET AFTER DISCHARGE: Cardiac WOUND/INCISION CARE: May get incision wet CHECKS AFTER DISCHARGE: CHECKS AFTER DISCHARGE: Check blood press - daily TREATMENT/EQUIPMENT ORDERS: ADAPTIVE EQUIPMENT NEEDED: None DISCHARGE MEDICATIONS: Home Meds Active Scripts Cefuroxime Axetil (CEFUROXIME) 500 Mg Tablet, 1 TAB PO BID for UTI for 5 Days, #10 TAB 0 Refills Prov:BENJAMIN BORRERO MD 06/13/19 Morphine Sulfate (Morphine Sulfate) 20 Mg/1 Ml Syringe, 5 MG PO PRN Q2HR PRN for PAIN for 30 Days, #30 ML Prov:BENJAMIN BORRERO MD 06/12/19 Lorazepam (LORAZEPAM) 2 Mg/1 Ml Oral.conc, 1 MG PO PRN Q4HRS PRN for ANXIETY / AGITATION for 30 Days, #30 ML Prov:BENJAMIN BORRERO MD 06/12/19 Apixaban (ELIQUIS) 5 Mg Tablet, 5 MG PO BID for RLE DVT for 30 Days, #70 TAB 3 Refills 10mg BID for 5 days, then 5mg BID thereafter and for refills Prov:BENJAMIN BORRERO MD 06/12/19 Reported Medications Spironolactone (SPIRONOLACTONE) 25 Mg Tablet, 1 TAB PO DAILY for edema, #90 TAB 1 Refill 06/11/19 Megestrol Acetate (MEGESTROL ACETATE) 400 Mg/10 Ml Oral.susp, 400 MG PO DAILY for weight loss, MISC 06/11/19 Acetaminophen (ACETAMINOPHEN) 500 Mg Tablet, 1000 MG PO PRN Q6HRS PRN for PAIN, TAB Pain reported <7/10 Do not exceed 3gm/day acetaminophen from all sources. 05/15/18 Pnv Cmb#95/Ferrous Fumarate/Fa ( TABLET) 1 Each Tablet, 1 TAB PO DAILY, #90 TAB 3 Refills 05/15/18 Discontinued Reported Medications Cholecalciferol (Vitamin D3) (VITAMIN D3) 50,000 Unit Capsule, 67438 UNIT PO WEEKLY, CAP Saturday05/15/18 Donepezil Hcl (DONEPEZIL HCL) 5 Mg Tablet, 5 MG PO HS, TAB 05/15/18 Calcitonin,[place],Synthetic (CALCITONIN-SALMON) 3.7 Ml [place].pump, 3.7 ML NS DAILY, SPRAY 05/15/18 Sennosides/Docusate Sodium (SENEXON-S TABLET) 1 Each Tablet, 1 EACH PO PRN DAILY PRN for CONSTIPATION, TAB 05/15/18 Prochlorperazine Maleate (PROCHLORPERAZINE MALEATE) 10 Mg Tablet, 1 TAB PO PRN Q4HRS PRN for NAUSEA/VOMITING, #30 TAB 3 Refills 05/15/18 Hydrocodone Bit/Acetaminophen (HYDROCODONE-APAP 7.5-325 ) 1 Each Tablet, 1 TAB PO PRN Q6HRS PRN for PAIN, TAB 0 Refills 05/15/18 Calcium Carbonate (CALCIUM CARBONATE) 500 Mg Tablet, 500 MG PO PRN Q6HRS PRN for INDIGESTION, TAB 05/15/18 Aspirin (ASPIR 81) 81 Mg Tablet., 81 MG PO DAILY08 08/27/13 BENJAMIN BORRERO MD Jun 12, 2019 14:27
--- NOTE | 2019-06-12 14:39 | PDOC3 ---
Discharge Summary Visit Information Date of Admission: Jun 10, 2019 Date of Discharge: Jun 13, 2019 Admitting Diagnosis: Bilateral LE edema, acute RLE DVT Final Diagnosis Problems Medical Problems: (1) Bilateral lower extremity edema Status: Acute (2) DVT (deep venous thrombosis) Status: Acute Brief Hospital Course Allergies Allergies Coded Allergies Type Severity Reaction Last Updated Verified No Known Drug Allergies 02/21/16 No Vital Signs Vital Signs Date Time Temp Pulse Resp B/P (MAP) Pulse Ox O2 Delivery O2 Flow Rate FiO2 06/12/19 11:00 98.7 78 16 103/58 (73) 98 Room Air 98.7 Lab Results Laboratory Tests Test 06/10/19 19:45 06/10/19 20:10 06/11/19 04:50 06/11/19 10:55 Urine Collection Type U cath Urine Color Yellow Urine Clarity Clear Urine pH 5.5 Urine Specific [place] 1.020 Urine Protein Negative mg/dL (NEG-TRACE) Urine Glucose (UA) Negative mg/dL (NEG) Urine Ketones (Stick) Negative mg/dL (NEG) Urine Blood Trace (NEG) Urine Nitrite Negative (NEG) Urine Bilirubin Negative (NEG) Urine Urobilinogen Dipstick 0.2 mg/dL (0.2 mg/dL) Urine Leukocyte Esterase Small (NEG) Urine RBC 0 /HPF (0-2) Urine WBC 1-4 /HPF (0-4) Urine Squamous Epithelial Cells Few /LPF Urine Bacteria Many /HPF (0-FEW) White Blood Count 11.0 x10^3/uL (4.0-11.0) 9.5 x10^3/uL (4.0-11.0) Red Blood Count 3.88 x10^6/uL (3.50-5.40) 3.32 x10^6/uL (3.50-5.40) Hemoglobin 12.8 g/dL (12.0-15.5) 10.9 g/dL (12.0-15.5) Hematocrit 38.6 % (36.0-47.0) 32.8 % (36.0-47.0) Mean Corpuscular Volume 100 fL (79-100) 99 fL (79-100) Mean Corpuscular Hemoglobin 33 pg (25-35) 33 pg (25-35) Mean Corpuscular Hemoglobin Concent 33 g/dL (31-37) 33 g/dL (31-37) Red Cell Distribution Width 16.1 % (11.5-14.5) 15.6 % (11.5-14.5) Platelet Count 318 x10^3/uL (140-400) 252 x10^3/uL (140-400) Neutrophils (%) (Auto) 77 % (31-73) 69 % (31-73) Lymphocytes (%) (Auto) 16 % (24-48) 25 % (24-48) Monocytes (%) (Auto) 6 % (0-9) 5 % (0-9) Eosinophils (%) (Auto) 0 % (0-3) 1 % (0-3) Basophils (%) (Auto) 1 % (0-3) 1 % (0-3) Neutrophils # (Auto) 8.5 x10^3/uL (1.8-7.7) 6.5 x10^3/uL (1.8-7.7) Lymphocytes # (Auto) 1.7 x10^3/uL (1.0-4.8) 2.3 x10^3/uL (1.0-4.8) Monocytes # (Auto) 0.7 x10^3/uL (0.0-1.1) 0.5 x10^3/uL (0.0-1.1) Eosinophils # (Auto) 0.0 x10^3/uL (0.0-0.7) 0.1 x10^3/uL (0.0-0.7) Basophils # (Auto) 0.1 x10^3/uL (0.0-0.2) 0.1 x10^3/uL (0.0-0.2) Prothrombin Time 12.2 SEC (11.7-14.0) Prothromb Time International Ratio 0.9 (0.8-1.1) Sodium Level 144 mmol/L (136-145) 143 mmol/L (136-145) Potassium Level 4.6 mmol/L (3.5-5.1) 4.1 mmol/L (3.5-5.1) Chloride Level 108 mmol/L (98-107) 111 mmol/L (98-107) Carbon Dioxide Level 25 mmol/L (21-32) 24 mmol/L (21-32) Anion Gap 11 (6-14) 8 (6-14) Blood Urea Nitrogen 33 mg/dL (7-20) 27 mg/dL (7-20) Creatinine 1.1 mg/dL (0.6-1.0) 0.9 mg/dL (0.6-1.0) Estimated GFR (Cockcroft-Gault) 47.7 60.1 BUN/Creatinine Ratio 30 (6-20) 30 (6-20) Glucose Level 94 mg/dL (70-99) 91 mg/dL (70-99) Calcium Level 9.9 mg/dL (8.5-10.1) 8.9 mg/dL (8.5-10.1) Total Bilirubin 0.2 mg/dL (0.2-1.0) 0.3 mg/dL (0.2-1.0) Aspartate Amino Transf (AST/SGOT) 19 U/L (15-37) 15 U/L (15-37) Alanine Aminotransferase (ALT/SGPT) 16 U/L (14-59) 12 U/L (14-59) Alkaline Phosphatase 102 U/L (46-116) 74 U/L (46-116) Total Protein 8.1 g/dL (6.4-8.2) 6.3 g/dL (6.4-8.2) Albumin 3.6 g/dL (3.4-5.0) 2.8 g/dL (3.4-5.0) Albumin/Globulin Ratio 0.8 (1.0-1.7) 0.8 (1.0-1.7) Heparin Anti-Xa Act, Unfractionated 0.68 IU/mL (0.30-0.70) 0.57 IU/mL (0.30-0.70) Test 06/12/19 07:24 White Blood Count 8.3 x10^3/uL (4.0-11.0) Red Blood Count 3.37 x10^6/uL (3.50-5.40) Hemoglobin 11.2 g/dL (12.0-15.5) Hematocrit 33.1 % (36.0-47.0) Mean Corpuscular Volume 98 fL (79-100) Mean Corpuscular Hemoglobin 33 pg (25-35) Mean Corpuscular Hemoglobin Concent 34 g/dL (31-37) Red Cell Distribution Width 15.5 % (11.5-14.5) Platelet Count 240 x10^3/uL (140-400) Prothrombin Time 14.0 SEC (11.7-14.0) Prothromb Time International Ratio 1.1 (0.8-1.1) Heparin Anti-Xa Act, Unfractionated 0.13 IU/mL (0.30-0.70) Laboratory Tests Test 06/12/19 07:24 White Blood Count 8.3 x10^3/uL (4.0-11.0) Red Blood Count 3.37 x10^6/uL (3.50-5.40) Hemoglobin 11.2 g/dL (12.0-15.5) Hematocrit 33.1 % (36.0-47.0) Mean Corpuscular Volume 98 fL (79-100) Mean Corpuscular Hemoglobin 33 pg (25-35) Mean Corpuscular Hemoglobin Concent 34 g/dL (31-37) Red Cell Distribution Width 15.5 % (11.5-14.5) Platelet Count 240 x10^3/uL (140-400) Prothrombin Time 14.0 SEC (11.7-14.0) Prothromb Time International Ratio 1.1 (0.8-1.1) Heparin Anti-Xa Act, Unfractionated 0.13 IU/mL (0.30-0.70) Brief Hospital Course Ms Zuñiga 79-year-old F w/ PMHx Dementia, GERD presents to the emergency department with complaints of left lower extremity pain, right lower shoulder pain. Patient is on hospice for dementia. PCP wanted her evaluated in the emergency Department for DVT. Outpatient report reveals evidence of extensive DVT to the left lower extremity including the, oral, moral, popliteal and 1 of 2 posterior tibial veins. The thrombus appears to be occlusive in the common femoral vein. She complains of pain to bilateral lower extremities. She denies any nausea, vomiting, chest pain, shortness of breath, abdominal pain. Seen by IR this morning, not a thrombectomy candidate. Does not wish for IVC filter. Have d/w her daughter. After dosing of coumadin her INR has not moved at all. She is eating well, no complaints today. She has forgotten she is here for her leg pain. No SOB or CP. INR still low. Have d/w daughter to start eliquis therap y instead for d/c planned to ensure the clot continues to resolve. A/P: LLE DVT - extensive, not a thrombectomy candidate. Will d/w IR if an IVC filter is appropriate as hospice may not continue anticoagulation. Change from heparin to eliquis Osteoporosis - is active with hospice now Multiple compression fractures - historically, pain control Dementia - in hospice currently GERD - on H2 maximilian FEN - General diet PPX - heparin gtt-> eliquis DNR/DNI Dispo - inpatient for extensive DVT. [facility] Greater than 30 minutes spent on d/c Discharge Information Condition at Discharge: Improved Follow Up: Weeks (1) Disposition/Orders: D/C to Home Scheduled Apixaban (Eliquis) 5 Mg Tablet, 5 MG PO BID for RLE DVT for 30 Days, #70 Ref 3 10mg BID for 5 days, then 5mg BID thereafter and for refills Prescribed by: BENJAMIN BORRERO MD on 06/12/19 1425 Megestrol Acetate (Megestrol Acetate) 400 Mg/10 Ml Oral.susp, 400 MG PO DAILY for weight loss, (Reported) Entered as Reported by: OMID MORTENSEN on 06/11/19932 Last Action: Converted on 06/11/191509 by BENJAMIN BORRERO MD Pnv Cmb#95/Ferrous Fumarate/Fa ( Tablet) 1 Each Tablet, 1 TAB PO DAILY, #90 Ref 3 (Reported) Entered as Reported by: JACK VALENZUELA on 05/15/181608 Last Action: Reviewed on 06/11/19932 by OMID MORTENSEN Spironolactone (Spironolactone) 25 Mg Tablet, 1 TAB PO DAILY for edema, #90 Ref 1 (Reported) Entered as Reported by: OMID MORTENSEN on 06/11/19932 Last Action: New Order on 06/11/19932 by OMID MORTENSEN Scheduled PRN Acetaminophen (Acetaminophen) 500 Mg Tablet, 1,000 MG PO PRN Q6HRS PRN for PAIN, (Reported) Pain reported <7/10 Do not exceed 3gm/day acetaminophen from all sources. Entered as Reported by: JACK VALENZUELA on 05/15/181608 Last Action: Continued on 06/11/19 151 by BENJAMIN BORRERO MD Lorazepam (Lorazepam) 2 Mg/1 Ml Oral.conc, 1 MG PO PRN Q4HRS PRN for ANXIETY / AGITATION for 30 Days, #30 Prescribed by: BENJAMIN BORRERO MD on 06/12/19 1426 Morphine Sulfate (Morphine Sulfate) 20 Mg/1 Ml Syringe, 5 MG PO PRN Q2HR PRN for PAIN for 30 Days, #30 Prescribed by: BENJAMIN BORRERO MD on 06/12/19 1426 Discontinued Medications Aspirin (Aspir 81) 81 Mg Tablet.dr, 81 MG PO DAILY08, (Reported) Entered as Reported by: Lisa Lundberg on 08/27/131836 Last Action: Discontinued on 06/11/19932 by OMID MORTENSEN Calcitonin,[place],Synthetic (Calcitonin-[place]) 3.7 Ml Mineral.pump, 3.7 ML NS DAILY, (Reported) Entered as Reported by: JACK VALENZUELA on 05/15/181608 Last Action: Discontinued on 06/11/19932 by OMID MORTENSEN Calcium Carbonate (Calcium Carbonate) 500 Mg Tablet, 500 MG PO PRN Q6HRS PRN for INDIGESTION, (Reported) Entered as Reported by: JACK VALENZUELA on 05/15/181608 Last Action: Discontinued on 06/11/19932 by OMID MORTENSEN Cholecalciferol (Vitamin D3) (Vitamin D3) 50,000 Unit Capsule, 50,000 UNIT PO WEEKLY, (Reported) Saturday Entered as Reported by: JACK VALENZUELA on 05/15/181608 Last Action: Discontinued on 06/11/19932 by OMID MORTENSEN Donepezil Hcl (Donepezil Hcl) 5 Mg Tablet, 5 MG PO HS, (Reported) Entered as Reported by: JACK VALENZUELA on 05/15/181608 Last Action: Discontinued on 06/11/19932 by OMID MORTENSEN Hydrocodone Bit/Acetaminophen (Hydrocodone-Apap 7.5-325 ) 1 Each Tablet, 1 TAB PO PRN Q6HRS PRN for PAIN, Ref 0 (Reported) Entered as Reported by: JACK VALENZUELA on 9/20/18 1609 Last Action: Discontinued on 06/11/19932 by OMID MORTENSEN Prochlorperazine Maleate (Prochlorperazine Maleate) 10 Mg Tablet, 1 TAB PO PRN Q4HRS PRN for NAUSEA/VOMITING, #30 Ref 3 (Reported) Entered as Reported by: JACK VALENZUELA on 05/15/181608 Last Action: Discontinued on 06/11/19932 by OMID MORTENSEN Sennosides/Docusate Sodium (Senexon-S Tablet) 1 Each Tablet, 1 EACH PO PRN DAILY PRN for CONSTIPATION, (Reported) Entered as Reported by: JACK VALENZUELA on 05/15/181608 Last Action: Discontinued on 06/11/19932 by BENJAMIN SMITH MD Jun 12, 2019 14:39
--- NOTE | 2019-06-12 14:46 | NUR ---
SS following up with discharge planning. Discharge orders received for return to [facility] with continuation of Hospice services on 06/13/2019. SS phoned and faxed discharge orders to [facility], ; fax [phone], and [facility], ; fax [phone]. Pt will discharge tomorrow, 06/13/2019, and return to [facility] with [facility]. Facility and hospice notified.
[2019-06-12 15:00] VITALS: BP 113/56
--- NOTE | 2019-06-12 15:34 | NUR ---
SS following up with discharge planning. SS contacted pt's daughter, Jeanne, , and notified of discharge tomorrow. Pt's daughter requested that SS arrange transportation back to [facility]. SS confirmed W/C transport with pt's RN. Pt will discharge tomorrow on 06/13/2019 at 1100 via [facility] and return to [facility], ; fax [phone], with [facility], ; fax [phone]. Pt's RN, facility, and hospice agency notified.
[2019-06-12 19:00] VITALS: BP 127/69
--- NOTE | 2019-06-12 19:00 | NUR ---
1839-- Pt.'s IV was accidentally discontinued. MYA Anderson found pt. bleeding from IV site. 1899-- critical UFH greater than 1.10. Dr. Denson was called by MYA Anderson at 1899. Only order given was to leave IV out. Will continue to monitor patient for any further bleeding
[2019-06-12 23:00] VITALS: BP 109/65
[2019-06-13 03:00] VITALS: BP 115/76
[2019-06-13 05:49] LABS: PROTHROMBIN TIME PATIENT 19.5 SEC (11.7-14.0)
[2019-06-13 07:00] VITALS: BP 116/74
[2019-06-13] MEDS ORDERED: CEFU500T46 PO (08:23)
--- NOTE | 2019-06-13 08:23 | PDOC ---
PROGRESS NOTES Chief Complaint Chief Complaint A/P: LLE DVT - extensive, not a thrombectomy candidate. Will d/w IR if an IVC filter is appropriate as hospice may not continue anticoagulation. Changed from heparin to eliquis Osteoporosis - is active with hospice now Multiple compression fractures - historically, pain control Dementia - in hospice currently GERD - on H2 maximilian UTI - > 100,000 GNR, will d/c on cefuroxime. FEN - General diet PPX - heparin gtt DNR/DNI Dispo - inpatient for extensive DVT. [facility] to [facility] following History of Present Illness History of Present Illness Ms Zuñiga 79-year-old F w/ PMHx Dementia, GERD presents to the emergency department with complaints of left lower extremity pain, right lower shoulder pain. Patient is on hospice for dementia. PCP wanted her evaluated in the emergency Department for DVT. Outpatient report reveals evidence of extensive DVT to the left lower extremity including the, oral, moral, popliteal and 1 of 2 posterior tibial veins. The thrombus appears to be occlusive in the common femoral vein. She complains of pain to bilateral lower extremities. She denies any nausea, vomiting, chest pain, shortness of breath, abdominal pain. Seen by IR this morning, not a thrombectomy candidate. Does not wish for IVC filter. Have d/w her daughter. After dosing of coumadin her INR has not moved at all. She is eating well, no complaints today. She has forgotten she is here for her leg pain. No SOB or CP. INR 1.9. Have d/w daughter to start eliquis therapy instead for d/c planned this morning to ensure the clot continues to resolve. Urine returned with 100K GNR - given cefuroxime. Vitals Vitals Vital Signs Date Time Temp Pulse Resp B/P (MAP) Pulse Ox O2 Delivery O2 Flow Rate FiO2 06/13/19 03:00 98.9 97 18 115/76 (89) 94 Room Air 98.9 Physical Exam General: Alert, Cooperative, mild distress Lungs: Clear Abdomen: Normal bowel sounds, Soft, No tenderness, No hepatosplenomegaly, No masses Extremities: No clubbing, No cyanosis, No edema, Normal pulses, No tenderness/swelling Skin: No rashes, No breakdown, No significant lesion Labs LABS Laboratory Tests Test 06/12/19 18:30 06/13/19 05:15 Heparin Anti-Xa Act, Unfractionated > 1.10 IU/mL (0.30-0.70) Prothrombin Time 19.5 SEC (11.7-14.0) Prothromb Time International Ratio 1.7 (0.8-1.1) Assessment and Plan Assessmemt and Plan Problems Medical Problems: (1) Bilateral lower extremity edema Status: Acute (2) DVT (deep venous thrombosis) Status: Acute Comment Review of Relevant I have reviewed the following items bubba (where applicable) has been applied. Labs Laboratory Tests Test 06/11/19 10:55 06/12/19 07:24 06/12/19 18:30 06/13/19 05:15 Heparin Anti-Xa Act, Unfractionated 0.57 IU/mL (0.30-0.70) 0.13 IU/mL (0.30-0.70) > 1.10 IU/mL (0.30-0.70) White Blood Count 8.3 x10^3/uL (4.0-11.0) Red Blood Count 3.37 x10^6/uL (3.50-5.40) Hemoglobin 11.2 g/dL (12.0-15.5) Hematocrit 33.1 % (36.0-47.0) Mean Corpuscular Volume 98 fL (79-100) Mean Corpuscular Hemoglobin 33 pg (25-35) Mean Corpuscular Hemoglobin Concent 34 g/dL (31-37) Red Cell Distribution Width 15.5 % (11.5-14.5) Platelet Count 240 x10^3/uL (140-400) Prothrombin Time 14.0 SEC (11.7-14.0) 19.5 SEC (11.7-14.0) Prothromb Time International Ratio 1.1 (0.8-1.1) 1.7 (0.8-1.1) Laboratory Tests Test 06/12/19 18:30 06/13/19 05:15 Heparin Anti-Xa Act, Unfractionated > 1.10 IU/mL (0.30-0.70) Prothrombin Time 19.5 SEC (11.7-14.0) Prothromb Time International Ratio 1.7 (0.8-1.1) Microbiology 06/10/19 Urine Culture - Preliminary, Resulted 06/10/19 Urine Culture Result 1 (GUS) - Preliminary, Resulted 06/10/19 Blood Culture - Preliminary, Resulted NO GROWTH AFTER 2 DAYS Medications Current Medications Ceftriaxone Sodium (Rocephin) 1 gm 1X ONCE IVP Last administered on 06/10/19at 21:18; Start 06/10/19 at 20:45; Stop 06/10/19 at 20:46; Status DC Heparin Sodium/ Dextrose 500 ml @ 0 mls/hr CONT PRN IV PER PROTOCOL Last administered on 06/12/19at 03:21; Start 06/10/19 at 22:15; Stop 06/12/19 at 14:03; Status DC Heparin Sodium (Porcine) (Heparin Sodium) 1,500 unit PRN Q6HRS PRN IV FOR UFH LEVEL LESS THAN 0.2 Last administered on 06/12/19at 12:27; Start 06/10/19 at 22:15; Stop 06/12/19 at 14:03; Status DC Heparin Sodium (Porcine) (Heparin Sodium) 750 unit PRN Q6HRS PRN IV FOR UFH LEVEL 0.2 - 0.29; Start 06/10/19 at 22:15; Stop 06/12/19 at 14:03; Status DC Ondansetron HCl (Zofran) 4 mg PRN Q8HRS PRN IV NAUSEA/VOMITING; Start 06/10/19 at 22:30; Stop 06/11/19 at 22:29; Status DC Acetaminophen (Tylenol) 650 mg PRN Q4HRS PRN PO FEVER; Start 06/10/19 at 22:30; Stop 06/11/19 at 22:29; Status DC Heparin Sodium (Porcine) (Heparin Sodium) 4,000 unit 1X ONCE IV Last administered on 06/10/19at 22:47; Start 06/10/19 at 22:45; Stop 06/10/19 at 22:46; Status DC Influenza Virus Vaccine Quadrival (Afluria Quad 2019-20 (3yr Up) Syringe) 0.5 ml ONCE ONCE VAX IM Last administered on 06/11/19at 10:14; Start 06/11/19 at 10:00; Stop 06/11/19 at 10:01; Status DC Info (Anti-Coagulation Monitoring By Pharmacy) 1 each PRN DAILY PRN MC SEE COMMENTS Last administered on 06/11/19at 14:52; Start 06/11/19 at 15:00 Warfarin Sodium (Coumadin) 5 mg DAILY16 PO Last administered on 06/11/19at 17:03; Start 06/11/19 at 16:00; Stop 06/12/19 at 13:56; Status DC Acetaminophen (Tylenol) 1,000 mg PRN Q6HRS PRN PO PAIN; Start 06/11/19 at 15:15 Lorazepam (Ativan Intensol) 1 mg PRN Q4HRS PRN PO ANXIETY / AGITATION; Start 06/11/19 at 15:15 Megestrol Acetate (Megace) 400 mg DAILY PO ; Start 06/12/19 at 09:00 Morphine Sulfate (Morphine Oral Solution) 5 mg PRN Q2HRS PRN PO PAIN; Start 06/11/19 at 15:30 Warfarin Sodium (Coumadin Per Physician) 1 each PRN DAILY PRN MC SEE COMMENTS Last administered on 06/11/19at 15:16; Start 06/11/19 at 15:15; Stop 06/12/19 at 13:56; Status DC Apixaban (Eliquis) 10 mg BID PO Last administered on 06/12/19at 21:51; Start 06/12/19 at 14:00; Stop 06/18/19 at 21:01 Apixaban (Eliquis) 5 mg BID PO ; Start 06/19/19 at 09:00 Active Scripts Active Morphine Sulfate 20 Mg/1 Ml Syringe 5 Mg PO PRN Q2HR PRN 30 Days Lorazepam 2 Mg/1 Ml Oral.conc 1 Mg PO PRN Q4HRS PRN 30 Days Eliquis (Apixaban) 5 Mg Tablet 5 Mg PO BID 30 Days 10mg BID for 5 days, then 5mg BID thereafter and for refills Reported Spironolactone 25 Mg Tablet 1 Tab PO DAILY Megestrol Acetate 400 Mg/10 Ml Oral.susp 400 Mg PO DAILY Acetaminophen 500 Mg Tablet 1,000 Mg PO PRN Q6HRS PRN Pain reported <7/10 Do not exceed 3gm/day acetaminophen from all sources. Tablet (Pnv Cmb#95/Ferrous Fumarate/Fa) 1 Each Tablet 1 Tab PO DAILY Vitals/I & O Vital Sign - Last 24 Hours 06/12/19 06/12/19 06/12/19 06/12/19 11:00 15:00 19:00 20:00 Temp 98.7 98.0 98.0 98.7 98.0 98.0 Pulse 78 64 100 Resp 16 14 18 B/P (MAP) 103/58 (73) 113/56 (75) 127/69 (88) Pulse Ox 98 92 96 O2 Delivery Room Air Room Air Room Air Room Air 06/12/19 06/13/19 23:00 03:00 Temp 98.2 98.9 98.2 98.9 Pulse 74 97 Resp 18 18 B/P (MAP) 109/65 (80) 115/76 (89) Pulse Ox 98 94 O2 Delivery Room Air Room Air Intake and Output 06/12/19 06/12/19 06/13/19 14:59 22:59 06:59 Intake Total 320 ml 0 ml Balance 320 ml 0 ml Nutrition Consultation Dietary Evaluation: Recommendations by RD: Increase Calorie Intake, Protein supplementation Comments: ensure bid Expected Outcomes/Goals: to meet > 75% est nutr needs via meals and supplements Malnutrition Findings: Body Fat Depletion (Non Severe: Mod to Severe Weight Status: Underweight BENJAMIN BORRERO MD Jun 13, 2019 08:23
[2019-06-13] MEDS ORDERED: cefTRIAXone IV Push 1 GM VIAL. IVP ONE (08:30)
[2019-06-13] MEDS: APIXABAN 5 MG TABLET. PO SCH (09:00)
[2019-06-13] MEDS: MEGESTROL 400 MG/10 ML ORAL.SUSP. PO SCH (09:00)
--- NOTE | 2019-06-13 13:00 | NUR ---
Patient discharged to [facility]. Discharge teaching completed. Report given to [facility] RN and hospice nurse. Paperwork sent with transport personnel. IV site had already been discontinued last PM. Pt transported by wheelchair van
[2019-06-13] MEDS: ANTI-COAG MONITOR BY PHARMACY. MC PRN (14:04)
[2019-06-19] MEDS ORDERED: APIXABAN 5 MG TABLET. PO SCH (09:00)
== END 2019-06-13 15:00 | disposition hospice, home (50) | DRG 300 ==
LOC: ER 19:30 → 4 NORTH 22:25
PROVIDERS: ADMIT Internal Medicine; ATTEND Internal Medicine
DX: I82.412 Acute embolism and thrombosis of left femoral vein (principal); N39.0 Urinary tract infection, site not specified; I82.449 Acute embolism and thrombosis of unspecified tibial vein; E78.5 Hyperlipidemia, unspecified; F03.90 Unspecified dementia, unspecified severity, without behavioral disturbance, psychotic disturbance, mood disturbance, and anxiety; I10 Essential (primary) hypertension; K21.9 Gastro-esophageal reflux disease without esophagitis; M81.0 Age-related osteoporosis without current pathological fracture; Z66 Do not resuscitate; Z82.49 Family history of ischemic heart disease and other diseases of the circulatory system; Z90.710 Acquired absence of both cervix and uterus; Z79.899 Other long term (current) drug therapy
CPT/HCPCS: 36415; 80053; 81001; 85025; 85027; 85520; 85610; 87040; 87086; 87186; 90471; 90686; 93970; 96374; 96375; J0696; J1644; 99285-25; G0378